=== PATIENT | male | born 1940 | race Caucasian/White ===

== ENCOUNTER → 2023-09-13 14:27 | Outpatient (REF) | payer OTHER, SELFPAY ==
[2023-09-13 15:56] LABS: % Basophils 1.4 % (0-2); % Eosinophils 1.8 % (0-6); % Immature Granulocytes 0.4 % (0-0.5); % Lymphocytes 13.7 % (20.5-51.1); % Monocytes 8.3 % (1.7-9.3); % Neutrophils 74.4 % (42.2-75.2); Absolute Basophils 0.1 10^3/uL (0-0.2); Absolute Eosinophils 0.1 10^3/uL (0-0.7); Absolute Lymphocytes 0.7 10^3/uL (1.2-3.4); Absolute Monocytes 0.4 10^3/uL (0.1-0.6); Absolute Neutrophils 3.7 10^3/uL (1.4-6.5); Hematocrit 31.1 % (39.0-52.0); Mean Corp Hgb Conc. 32.2 g/dL (33.0-37.0); Mean Corpuscular Hgb 31.3 pg (27.0-31.0); Mean Corpuscular Volume 97.2 fL (80.0-94.0); Mean Platelet Volume 10.1 fL (7.4-10.4); Nucleated Red Blood Cells % 0 % (-); Platelet Count 189 10^3/uL (130-400); Red Cell Dist. Width 13.7 % (11.5-14.5)
[2023-09-13 16:22] LABS: ALT (SGPT) 21 U/L (0-50); AST (SGOT) 28 U/L (17-59); Albumin 4.1 g/dl (3.5-5.0); Alkaline Phosphatase 122 U/L (38-126); Blood Urea Nitrogen 97 mg/dl (9-20); Calcium 9.1 mg/dl (8.4-10.2); Carbon Dioxide 18 mmol/L (22-30); Chloride 108 mmol/L (98-107); Glucose 84 mg/dl (70-99); Iron 70 ug/dl (49-181); Phosphorus 6.8 mg/dl (2.5-4.5); Potassium 4.8 mmol/L (3.5-5.1); Sodium 140 mmol/L (135-145); Total Bilirubin 0.4 mg/dl (0.2-1.3); Total Protein 6.7 g/dl (6.3-8.2); eGFR 10.03
[2023-09-13 17:21] LABS: Percent Saturation 30 % (20-50); Total Iron Binding Capacity 231 ug/dl (261-462)
[2023-09-13 21:31] LABS: Vitamin D, 25-OH*** 14.6 ng/mL (30-80)
[2023-09-15 11:05] LABS: Intact PTH 495.1 pg/ml (13.6-85.8)
== END ==
LOC: REG 14:27
PROVIDERS: ATTENDING PHYSICIAN Student in an Organized Health Care Education/Training Program
DX: N18.5 Chronic kidney disease, stage 5 (principal)
CPT/HCPCS: 36415; 80053; 82306; 83540; 83550; 83970; 84100; 85025

== ENCOUNTER → 2023-11-16 10:18 | Outpatient (REF) | payer OTHER, SELFPAY ==
[2023-11-16 11:14] LABS: % Eosinophils 5.4 % (0-6); % Immature Granulocytes 0.3 % (0-0.5); % Lymphocytes 24.5 % (20.5-51.1); % Neutrophils 53.8 % (42.2-75.2); Absolute Eosinophils 0.2 10^3/uL (0-0.7); Absolute Lymphocytes 0.8 10^3/uL (1.2-3.4); Absolute Monocytes 0.5 10^3/uL (0.1-0.6); Absolute Neutrophils 1.7 10^3/uL (1.4-6.5); Hematocrit 27.3 % (39.0-52.0); Mean Corpuscular Hgb 31.5 pg (27.0-31.0); Mean Corpuscular Volume 95.5 fL (80.0-94.0); Mean Platelet Volume 10.3 fL (7.4-10.4); Nucleated Red Blood Cells % 0 % (-); Platelet Count 145 10^3/uL (130-400); Red Blood Cell Count 2.86 10^6/uL (4.70-6.10); Red Cell Dist. Width 13.2 % (11.5-14.5); White Blood Cell Count 3.1 10^3/uL (4.8-10.8)
[2023-11-16 11:32] LABS: NT-proBNP 4350 pg/ml
[2023-11-16 11:46] LABS: Free T4 1.08 ng/dl (0.78-2.19); Vitamin D, 25-OH*** 19.8 ng/mL (30-80)
[2023-11-16 12:00] LABS: TSH 1.18 uIU/ml (0.47-4.68)
[2023-11-16 12:20] LABS: Vitamin B12 > 1000 pg/ml (239-931)
[2023-11-16 12:55] LABS: ALT (SGPT) 18 U/L (0-50); AST (SGOT) 22 U/L (17-59); Albumin 3.4 g/dl (3.5-5.0); Alkaline Phosphatase 113 U/L (38-126); Blood Urea Nitrogen 77 mg/dl (9-20); Calcium 8.4 mg/dl (8.4-10.2); Carbon Dioxide 21 mmol/L (22-30); Chloride 111 mmol/L (98-107); Glucose 82 mg/dl (70-99); HDL Cholesterol 74 mg/dl; Iron 59 ug/dl (49-181); LDL Cholesterol, Calculated 31 mg/dl; Potassium 5.2 mmol/L (3.5-5.1); Sodium 141 mmol/L (135-145); Total Bilirubin 0.3 mg/dl (0.2-1.3); Total Cholesterol 115 mg/dl (50-199); Total Protein 5.8 g/dl (6.3-8.2); Triglyceride 51 mg/dl (10-149); Very Low Density Lipoprotein 10 mg/dl (0-30); eGFR 13.65
== END ==
LOC: OLABN 10:18
PROVIDERS: ATTENDING PHYSICIAN Student in an Organized Health Care Education/Training Program
DX: E55.9 Vitamin D deficiency, unspecified (principal); I12.0 Hypertensive chronic kidney disease with stage 5 chronic kidney disease or end stage renal disease; I50.20 Unspecified systolic (congestive) heart failure; E78.5 Hyperlipidemia, unspecified
CPT/HCPCS: 36415; 80053; 80061; 82306; 82607; 82728; 83540; 83735; 83880; 84439; 84443; 85025

== ENCOUNTER 2023-11-16 15:52 | Emergency (ER) | payer OTHER, SELFPAY ==
[2023-11-16 15:54] VITALS: BP 181/77
[2023-11-16 15:57] VITALS: BP 183/74
[2023-11-16 16:00] VITALS: BP 181/77
[2023-11-16 16:11] LABS: % Basophils 1.2 % (0-2); % Eosinophils 5.8 % (0-6); % Immature Granulocytes 0.3 % (0-0.5); % Lymphocytes 21.9 % (20.5-51.1); % Neutrophils 53.8 % (42.2-75.2); Absolute Eosinophils 0.2 10^3/uL (0-0.7); Absolute Lymphocytes 0.7 10^3/uL (1.2-3.4); Absolute Monocytes 0.6 10^3/uL (0.1-0.6); Absolute Neutrophils 1.8 10^3/uL (1.4-6.5); Hematocrit 29.2 % (39.0-52.0); Hemoglobin 9.7 g/dL (13.0-18.0); Mean Corp Hgb Conc. 33.2 g/dL (33.0-37.0); Mean Corpuscular Hgb 31.3 pg (27.0-31.0); Mean Corpuscular Volume 94.2 fL (80.0-94.0); Mean Platelet Volume 9.8 fL (7.4-10.4); Nucleated Red Blood Cells % 0 % (-); Platelet Count 143 10^3/uL (130-400); Red Cell Dist. Width 13.3 % (11.5-14.5); White Blood Cell Count 3.3 10^3/uL (4.8-10.8)
--- NOTE | 2023-11-16 16:26 | ED.GENMED ---
History of Present Illness
<MARY Kauffman - Last Filed: 11/18/23 07:15>
General
Chief Complaint: Abnormal Lab Value
Source: patient
Exam Limitations: none
Time Seen by Provider: 11/16/23 16:03
Nursing documentation reviewed up to this point in time: agreed with
Travel History
Have you had any contact with someone who has COVID-19?: No
Do you have any symptoms of coronavirus? Fever > 100 degrees, chills, cough, shortness of breath, sore throat, loss of taste or smell, muscle aches, or headache?: No
History of Present Illness
History of Present Illness:
83-year-old male that was sent by [facility] for elevated BUN and creatinine. Patient reports he is newer to [facility] and recently started seeing cap inspector Dr. Tinajero recently. Does have a history of underlying chronic
kidney disease. He is on dialysis. He does make urine. He has no complaints.
Patient has a history of chronic kidney disease stage Vb. He has been followed by . In addition he has a history of heart failure COPD hyperkalemia essential hypertension, anemia of chronic disease
Review of Systems
<MARY Kauffman - Last Filed: 11/18/23 07:15>
Review of Systems
Allergies reviewed?: Yes
All Other Systems: ROS reviewed and negative except as documented in HPI and ROS
Constitutional: Reports no symptoms; Denies fever, fatigue or chills
Respiratory: Reports no symptoms
Cardiac: Reports no symptoms
ABD/GI: Reports no symptoms
: Reports no symptoms; Denies dysuria, frequency or difficulty voiding
Musculoskeletal: Reports no symptoms; Denies back pain
Skin: Reports no symptoms
Neurological: Reports no symptoms
Psychiatric: Reports no symptoms
Phy Exam
<MARY Kauffman - Last Filed: 11/18/23 07:15>
General Physical Exam
General Presentation: no apparent distress
General age: appears stated age
General Skin: warm and dry
General Habitus: elderly
General Mental: alert
General Hydration: appears well hydrated
Cardiovascular Exam
Cardiovascular Exam: regular rate/rhythm and normal peripheral pulses
Pulmonary Exam
Pulmonary Exam: lungs clear and no respiratory distress
Neurological Exam
Neurological Exam: alert and oriented x3
Musculoskeletal Exam
Musculoskeletal Exam: full ROM
Skin Exam
Skin Exam: normal color and warm/dry
Psychiatric Exam
Psychiatric Exam: normal mood/affect
Course
<MARY Kauffman - Last Filed: 11/18/23 07:15>
Orders/Labs/Results
Orders:
Orders
11/16/23 16:04
CBC/With Diff [Complete Blood Count/With Diff] Urgent
CMP [Comprehensive Metabolic Panel] Urgent
11/16/23 17:22
Bladder Scan- Treatment ONCE
11/16/23 18:07
UA Reflex to Culture [Urinalysis Reflex To Culture] Urgent
Date Specimen was Collected: 11/16/23
Time Specimen was Collected: 18:04
Urine Microscopic Reflex Cult Urgent
Abnormal Lab Results
11/16/23 11/16/23
16:04 18:07
WBC 3.3 L 10^3/uL
(4.8-10.8)
RBC 3.10 L 10^6/uL
(4.70-6.10)
Hgb 9.7 L g/dL
(13.0-18.0)
Hct 29.2 L %
(39.0-52.0)
MCV 94.2 H fL
(80.0-94.0)
MCH 31.3 H pg
(27.0-31.0)
Absolute Lymphs (auto) 0.7 L 10^3/uL
(1.2-3.4)
Monocytes % 17.0 H %
(1.7-9.3)
BUN 85 H mg/dl
(9-20)
Creatinine 4.1 H* mg/dL
(0.7-1.3)
Glucose 100 H mg/dl
(70-99)
Alkaline Phosphatase 130 H U/L
(38-126)
Urine Bacteria (Reflex) Few A
(Negative)
Urine Albumin (Reflex) 1+ A
(Neg - Trace)
11/16/23 16:04
11/16/23 16:04
Vital Signs
Initial and Last Documented VS:
Initial Vital Signs
Temp Pulse Resp BP Pulse Ox
97.8 F 71 22 181/77 99
11/16/23 15:54 11/16/23 15:54 11/16/23 15:54 11/16/23 15:54 11/16/23 15:54
Last Documented Vital Signs
Temp Pulse Resp BP Pulse Ox
97.8 F 74 20 168/67 100
11/16/23 15:54 11/16/23 18:45 11/16/23 18:45 11/16/23 17:00 11/16/23 17:00
<Cabrera Solomon, DO - Last Filed: 11/16/23 19:24>
Orders/Labs/Results
Orders:
Orders
11/16/23 16:04
CBC/With Diff [Complete Blood Count/With Diff] Urgent
CMP [Comprehensive Metabolic Panel] Urgent
11/16/23 17:22
Bladder Scan- Treatment ONCE
11/16/23 18:07
UA Reflex to Culture [Urinalysis Reflex To Culture] Urgent
Date Specimen was Collected: 11/16/23
Time Specimen was Collected: 18:04
Urine Microscopic Reflex Cult Urgent
Abnormal Lab Results
11/16/23 11/16/23
16:04 18:07
WBC 3.3 L 10^3/uL
(4.8-10.8)
RBC 3.10 L 10^6/uL
(4.70-6.10)
Hgb 9.7 L g/dL
(13.0-18.0)
Hct 29.2 L %
(39.0-52.0)
MCV 94.2 H fL
(80.0-94.0)
MCH 31.3 H pg
(27.0-31.0)
Absolute Lymphs (auto) 0.7 L 10^3/uL
(1.2-3.4)
Monocytes % 17.0 H %
(1.7-9.3)
BUN 85 H mg/dl
(9-20)
Creatinine 4.1 H* mg/dL
(0.7-1.3)
Glucose 100 H mg/dl
(70-99)
Alkaline Phosphatase 130 H U/L
(38-126)
Urine Bacteria (Reflex) Few A
(Negative)
Urine Albumin (Reflex) 1+ A
(Neg - Trace)
11/16/23 16:04
11/16/23 16:04
Vital Signs
Initial and Last Documented VS:
Initial Vital Signs
Temp Pulse Resp BP Pulse Ox
97.8 F 71 22 181/77 99
11/16/23 15:54 11/16/23 15:54 11/16/23 15:54 11/16/23 15:54 11/16/23 15:54
Last Documented Vital Signs
Temp Pulse Resp BP Pulse Ox
97.8 F 74 20 168/67 100
11/16/23 15:54 11/16/23 18:45 11/16/23 18:45 11/16/23 17:00 11/16/23 17:00
<MARY Kauffman - Last Filed: 11/18/23 07:15>
MDM/Problems Addressed
MDM/Problems Addressed:
Patient is an 83[facility] with chronic kidney disease stage V. He has seen Dr. Tinajero once in the office. His creatinine in September 2023 was 5.3 today is 4.1. He has a normal potassium and has no complaints. Case d/c w/ DR
Vu of nephrology who reviewed patient's prior labs and as documented labs are better. Will check urine/bladder scan .
Patient retaining a small amount of urine around 320 mL. This was reviewed by urology would not recommend Rosenberg catheter at that volume.
Will wait for urinalysis then plan for discharge back to [place]
<MARY Kauffman - Last Filed: 11/18/23 07:15>
*Pulse Oximetry
Patient hypoxic: no
*Critical Care Note
Total Time (30-74mins, 75-104mins- exclusive of procedures): Not Applicable
ED Attending Note
<MARY Kauffman - Last Filed: 11/18/23 07:15>
-
Portions of this chart may have been created with voice recognition software.� Occasional wrong word or��sound alike� substitutions may have occurred due to the inherent limitations of voice recognition software.
<Cabrera Solomon DO - Last Filed: 11/16/23 19:24>
ED Attending Note
Patient seen and examined by attending physician: Yes
I performed the substantive portion of visit, reviewed & personally made and approve the management plan that is documented in note by myself or SARIAH.: Yes
ED Attending Note:
I have seen and evaluated the patient with a [id number] encounter. I have spoken to the advance practicer provider and involved in the medical history, the physical exam, medical decision making.
Evaluation and management service: agree unless noted differently below.
Results interpretation: agree unless noted differently below.
Focused HPI: 83-year-old male presents for abnormal lab value. Patient was sent in when he was found to have an elevated creatinine
Physical exam: Lying in bed comfortably. No acute distress
Medical Decision Making: His elevated creatinine appears to be at baseline. He had mild urinary retention but urinated showing no evidence of infection.
Discharge Plan
Departure
Patient Disposition: Home (Routine Discharge)
Date of Disposition: 11/16/23
Time of Disposition: 19:24
Patient with high blood pressure during this ER visit?: Yes
Condition: Fair
Covid-19: Not Applicable
Discharge Problem:
Chronic kidney disease
Prescriptions:
No Action
acetaminophen 325 mg Tablet
650 mg PO Q4H PRN (Reason: mild pain/fever>100.4)
cyanocobalamin (vitamin B-12) [Vitamin B-12] 1,000 mcg Tablet
1,000 mcg PO DAILY
clopidogrel 75 mg Tablet
75 mg PO DAILY
magnesium hydroxide [Milk of Magnesia] 400 mg/5 mL Suspension
30 ml PO HS PRN (Reason: constipation)
tamsulosin 0.4 mg Capsule
0.4 mg PO QPM
sodium bicarbonate 650 mg Tablet
1,300 mg PO TID@0830,1330,1830
bisacodyl [Dulcolax (bisacodyl)] 10 mg Suppository
10 mg MA DAILY PRN (Reason: if mom/lactulose is ineffective)
simvastatin 20 mg Tablet
20 mg PO QPM
metoprolol succinate 25 mg tablet extended release 24 hr
12.5 mg PO DAILY
ferrous gluconate 324 mg (38 mg iron) Tablet
324 mg PO DAILY
sevelamer carbonate 800 mg tablet
800 mg PO TID@0830,1330,1830
Lokelma 10 gram powder in packet
10 g PO Q48H
Referrals:
Bin Marcos DO [Family Provider] -
Shannon Tinajero MD [Active] -
Activity Restrictions/Additional Instructions:
Patient must be evaluated by nephrology in the next several days.
Interventions
Interventions:
*Risk Screen - Suicide Last Done: 11/16/23 15:54
*General Assessment Last Done: 11/16/23 15:54
*Neglect/Abuse Screening Last Done: 11/16/23 15:54
*Nursing Disposition Last Done: 11/16/23 20:07
Discharge Date and Time
Discharge Date/Time: 11/16/23 20:07
Print Language: TURKISH
[2023-11-16 16:37] LABS: ALT (SGPT) 20 U/L (0-50); AST (SGOT) 26 U/L (17-59); Alkaline Phosphatase 130 U/L (38-126); Blood Urea Nitrogen 85 mg/dl (9-20); Calcium 8.6 mg/dl (8.4-10.2); Carbon Dioxide 24 mmol/L (22-30); Chloride 106 mmol/L (98-107); Glucose 100 mg/dl (70-99); Potassium 4.7 mmol/L (3.5-5.1); Sodium 139 mmol/L (135-145); Total Bilirubin 0.5 mg/dl (0.2-1.3); Total Protein 6.6 g/dl (6.3-8.2); eGFR 13.65
[2023-11-16 17:00] VITALS: BP 168/67
[2023-11-16 19:13] LABS: Urine Albumin 1+ (Neg - Trace); Urine Bilirubin Negative (Negative); Urine Character Clear (Clear); Urine Color Yellow; Urine Glucose Negative (Negative); Urine Ketone Negative (Negative); Urine Leukocyte Negative (Negative); Urine Nitrite Negative (Negative); Urine Occult Blood Negative (Negative); Urine Urobilinogen Negative (Neg - 1+)
[2023-11-16 19:26] LABS: Urine Bacteria Few (Negative); Urine Red Blood Cell 0-2 /HPF (0-2); Urine White Cell 0-2 /HPF (0-5)
== END 2023-11-16 20:07 | disposition home or self-care (01) ==
LOC: EMR 15:52
PROVIDERS: Nurse Practitioner; EMERGENCY PHYSICIAN Student in an Organized Health Care Education/Training Program; FAMILY PHYSICIAN Student in an Organized Health Care Education/Training Program
DX: I13.2 Hypertensive heart and chronic kidney disease with heart failure and with stage 5 chronic kidney disease, or end stage renal disease (principal); N18.5 Chronic kidney disease, stage 5; I50.9 Heart failure, unspecified; J44.9 Chronic obstructive pulmonary disease, unspecified
CPT/HCPCS: 99283; 51798; 80053; 81003; 81015; 85025

== ENCOUNTER → 2023-12-15 14:16 | Outpatient (REF) | payer OTHER, SELFPAY | LOC: DHVS 14:16 | PROVIDERS: ATTENDING PHYSICIAN Surgery Vascular Surgery; FAMILY PHYSICIAN Student in an Organized Health Care Education/Training Program | DX: N18.4 Chronic kidney disease, stage 4 (severe) (principal) | CPT/HCPCS: 93985 ==

== ENCOUNTER 2023-12-20 06:33 | Day surgery (SDC) | payer OTHER, SELFPAY ==
[2023-12-14 11:52] VITALS: BMI 23.1
[2023-12-20] VITALS (15 sets, daily range): BP systolic 119–146; BP diastolic 48–65
--- NOTE | 2023-12-20 07:04 | W.SUR.PREOP ---
Pre-Operative Surgical Note
-
I have examined this patient prior to the performance of the scheduled procedure.
The patient's condition is unchanged from the time of the current History and
Physical and the patient is able to undergo the scheduled procedure.
[2023-12-20 07:07] LABS: Hematocrit 28.5 % (39.0-52.0); Hemoglobin 9.5 g/dL (13.0-18.0); Mean Corp Hgb Conc. 33.3 g/dL (33.0-37.0); Mean Corpuscular Hgb 32.1 pg (27.0-31.0); Mean Corpuscular Volume 96.3 fL (80.0-94.0); Mean Platelet Volume 10.1 fL (7.4-10.4); Platelet Count 137 10^3/uL (130-400); Red Blood Cell Count 2.96 10^6/uL (4.70-6.10); Red Cell Dist. Width 13.8 % (11.5-14.5); White Blood Cell Count 4.9 10^3/uL (4.8-10.8)
[2023-12-20] MEDS: BACTROBAN 2% OINTMENT 1 APPLIC NASAL (07:12)
[2023-12-20] MEDS: PERIDEX 0.12% ORAL RINSE 15 ML PO (07:13)
[2023-12-20] MEDS: NSS 40 IV (07:13)
[2023-12-20 07:32] LABS: Blood Urea Nitrogen 99 mg/dl (9-20); Calcium 9.1 mg/dl (8.4-10.2); Carbon Dioxide 16 mmol/L (22-30); Chloride 117 mmol/L (98-107); Estimated Creatinine Clearance 10 ml/min; Glucose 92 mg/dl (70-99); Potassium 6.2 mmol/L (3.5-5.1); Sodium 142 mmol/L (135-145); eGFR 11.02
--- NOTE | 2023-12-20 07:35 | PTCARENOTE ---
Critical labs K+ 6.2 and Cr 4[address] Bennett and Zulma FARRIS.
[2023-12-20 07:40] LABS: INR 1.19; PT 15.2 Sec (11.4-14.6)
[2023-12-20 07:41] LABS: APTT 38.4 Sec (23.4-35.0)
--- NOTE | 2023-12-20 07:56 | W.PN.UPDATE ---
Update Note
Progress Note Update
Patient seen at bedside this a.m. to assess for K: 6.2. Patient is here for AV fistula creation soon to be starting dialysis.
I spoke with Dr. Haskins. We ordered insulin, D50, Lokelma. Repeat K in 2 hours. Increase home Lokelma dose to daily. Patient updated, he is doing well, no EKG changes. Anesthesia and Dr. Wells aware.
[2023-12-20] MEDS: DEXTROSE 50% SYRINGE 25 GRAMS IV (07:58)
[2023-12-20] MEDS: LOKELMA 10 GRAM PO (07:58)
[2023-12-20] MEDS: NOVOLIN R 0.100000000000000006 UNITS IV (08:06)
--- NOTE | 2023-12-20 08:12 | PTCARENOTE ---
Lokelma , Insulin and Dextrose given as ordered.
[2023-12-20 08:23] LABS: Glucose - Point of Care 91 mg/dl (70-99)
[2023-12-20 09:01] LABS: Glucose - Point of Care 120 mg/dl (70-99)
--- NOTE | 2023-12-20 09:56 | W.SUR.POST ---
Surgical Immediate Post Op
Note
Pre Op Diagnosis: ESRD
Post Op Diagnosis: same
Procedure Performed: Left upper extremity AV fistula creation
Primary Surgeon: Russell
Assist: Nolberto HERNANDEZ
Anesthesia: LMA
Estimated Blood Loss: 5 cc
Fluids: See anesthesia flowsheet
Drains/Shunts: None
Specimens/Cultures: None
Doppler/Duplex/Angio (Y/N): Y
Complications: None
Operative Findings: Palpable thrill, palpable radial pulse
--- NOTE | 2023-12-20 09:58 | W.[place]-PDMP ---
[place]-PDMP
-
Checked the [place]- Prescription Drug Monitoring Program website, no red flags identified; safe to proceed with prescription.
--- NOTE | 2023-12-20 10:17 | OR.RPT ---
Operative Report
Operative Report
PROCEDURE DATE: 12/20/2023
Preoperative diagnosis: CKD stage V, approaching hemodialysis.
Postoperative diagnosis: Same
Procedure: Left upper extremity brachiobasilic arteriovenous fistula creation with single stage basilic vein transposition.
Surgeon: Russell
Human Resources Director: Nolberto, required for all aspects of procedure including assistance with traction/countertraction, following of suture line, assistance with closure.
Complications: None
Anesthesia: General
Indications for procedure:
Advanced chronic kidney disease, approaching hemodialysis needs. Referred for access creation. Risk/benefit/alternatives also discussed. Patient understood all wish to proceed.
Description of procedure:
Patient was identified brought to the operating room placed on the table in supine position. After the induction of anesthesia, I used a ultrasound probe in the operating room to carefully mapped the left upper extremity veins. The basilic vein in
the upper arm actually appeared suitable at this time. (Even though the ultrasound vein mapping preoperatively had demonstrated small sizes of all veins in the upper arm and forearm in this extremity). Therefore, I felt it was worthwhile to
explore the basilic vein for possible brachiobasilic fistula creation. After the adequate administration of anesthesia and perioperative antibiotics he was prepped and draped in the standard surgical fashion. A standard preoperative timeout was
undertaken and everybody was in agreement the plan. A longitudinal incision was made in the medial distal upper arm that was carried through the skin subcutaneous tissue with electrocautery. The basilic vein was identified and carefully dissected
away from surrounding structures and great care to avoid any injury to structures. It appeared to be a very suitable vein. I therefore then continued my incisions extending proximally up towards the axilla (to the proximal upper arm where I had
marked the confluence of the basilic vein to the deep venous system), and distally just to the level of the proximal forearm. The basilic vein was carefully dissected away from surrounding structures take great care to avoid any injury to
structures, namely the median antebrachial cutaneous nerve which was carefully preserved from harm's way. Any branches of the basilic vein were ligated between silk ties and then divided. As such I was able to mobilize the entirety of the basilic
vein out of its bed. Once I fully mobilized sufficient length of vein I then ligated the vein distally with a silk tie and a clip and then transected it. I then untethered it from the nerve. I distended under heparinized saline. It distended
very well. I marked the anterior surface under distention to avoid any kinking or twisting when I tunneled it.
Next I deepened my dissection in the distal aspect of my incision through the fascial layer, thereby identifying the brachial artery and carefully dissected away from surrounding structures and great care to avoid any injury to structures. Note, I
did identify on ultrasound that there appeared to be a higher radial or other branch takeoff. However, the artery I was dissecting was the main brachial/ulnar artery at this point. I passed Vesseloops around it proximally and distally. Next I
made a small counterincision overlying the biceps and used an aortic clamp to tunnel the mobilized basilic vein to the arterial exposure site (tunneled in a rainbow fashion overlying the biceps). The tunneling was performed with the vein under
distention to avoid any kinking or twisting.
Next I gave the patient 3000 units of intravenous heparin. I then tightened my Vesseloops (double looped) proximally and distally on the brachial artery. Next I made an arteriotomy with 11 blade and extended using a Farfan scissor. I then
spatulated the vein and sewed an end-to-side anastomosis using a running 6-0 Prolene suture. I then completed and tied down my suture line. Next I released my Vesseloops on the artery and the bulldog clamp tied placed on the vein. There was an
excellent thrill in the fistula. Hemostasis was noted along the suture line. I confirmed good distal flow with an easily palpable radial pulse at the wrist. At this point I was very satisfied. I therefore irrigated all my incision sites.
Hemostasis was fully achieved and confirmed. We then closed useing deep dermal 3-0 Vicryl running suture. Finally 4-0 Monocryl subcuticular stitch was run. The small counterincision was closed with 4-0 Monocryl subcuticular stitch as well.
Dermabond was applied to the incision sites. Patient tolerated the procedure well.
[2023-12-20 10:24] LABS: Glucose - Point of Care 78 mg/dl (70-99)
[2023-12-20] MEDS: TYLENOL 650 MG PO (11:18)
[2023-12-20 11:43] LABS: Blood Urea Nitrogen 101 mg/dl (9-20); Calcium 9.4 mg/dl (8.4-10.2); Carbon Dioxide 12 mmol/L (22-30); Chloride 121 mmol/L (98-107); Estimated Creatinine Clearance 11 ml/min; Glucose 66 mg/dl (70-99); Potassium 5.7 mmol/L (3.5-5.1); Sodium 143 mmol/L (135-145); eGFR 12.54
[2023-12-20 12:01] LABS: Glucose - Point of Care 116 mg/dl (70-99)
[2023-12-20] MEDS: SODIUM BICARBONATE 50 MEQ IV (12:37)
--- NOTE | 2023-12-20 12:37 | W.PN.UPDATE ---
Update Note
Progress Note Update
Repeat potassium 5.7, discussed with nephrology. 1 amp of bicarb given. Patient educated on new prescription of Lokelma DAILY. Will follow-up with nephrology as scheduled on 01/09. [facility] to [facility]
== END 2023-12-20 13:57 | disposition home or self-care (01) ==
LOC: CATH 06:33
PROVIDERS: Nurse Practitioner Acute Care; ATTENDING PHYSICIAN Surgery Vascular Surgery
DX: N18.6 End stage renal disease (principal); Z99.2 Dependence on renal dialysis; F17.210 Nicotine dependence, cigarettes, uncomplicated; Z79.02 Long term (current) use of antithrombotics/antiplatelets
CPT/HCPCS: 36819; 80048; 82962; 85027; 85610; 85730; 86850; 86900; 86901

== ENCOUNTER → 2023-12-27 10:03 | Outpatient (REF) | payer MEDICARE, SELFPAY | LOC: RCS 10:03 | PROVIDERS: ATTENDING PHYSICIAN Internal Medicine Cardiovascular Disease; FAMILY PHYSICIAN Student in an Organized Health Care Education/Training Program | DX: I50.20 Unspecified systolic (congestive) heart failure (principal) | CPT/HCPCS: 93306 ==

== ENCOUNTER → 2024-03-03 10:38 | Outpatient (REF) | payer MEDICARE, SELFPAY | LOC: RAD 10:38 | PROVIDERS: ATTENDING PHYSICIAN Registered Nurse | DX: N18.4 Chronic kidney disease, stage 4 (severe) (principal); I77.0 Arteriovenous fistula, acquired | CPT/HCPCS: 93990 ==

== ENCOUNTER 2024-03-08 10:59 | Day surgery (SDC) | payer MEDICARE, SELFPAY ==
[2024-03-08] VITALS (10 sets, daily range): BP systolic 112–142; BP diastolic 53–74; BMI 22.1
[2024-03-08 11:36] LABS: Hematocrit 31.6 % (39.0-52.0); Hemoglobin 10.6 g/dL (13.0-18.0); Mean Corp Hgb Conc. 33.5 g/dL (33.0-37.0); Mean Corpuscular Hgb 32.1 pg (27.0-31.0); Mean Corpuscular Volume 95.8 fL (80.0-94.0); Mean Platelet Volume 9.9 fL (7.4-10.4); Platelet Count 186 10^3/uL (130-400); Red Cell Dist. Width 13.2 % (11.5-14.5); White Blood Cell Count 4.6 10^3/uL (4.8-10.8)
[2024-03-08 11:56] LABS: INR 1.01; PT 13.3 Sec (11.4-14.6)
[2024-03-08 12:20] LABS: Blood Urea Nitrogen 104 mg/dl (9-20); Calcium 9.3 mg/dl (8.4-10.2); Carbon Dioxide 15 mmol/L (22-30); Chloride 108 mmol/L (98-107); Estimated Creatinine Clearance 11 ml/min; Glucose 95 mg/dl (70-99); Potassium 5.6 mmol/L (3.5-5.1); Sodium 141 mmol/L (135-145); eGFR 12.54
--- NOTE | 2024-03-08 13:55 | W.SUR.POST ---
Surgical Immediate Post Op
Note
Pre Op Diagnosis: ESRD
Post Op Diagnosis: ESRD
Procedure Performed: Left upper extremity fistulogram, angioplasty and stent of outflow vein stenosis
Primary Surgeon: Russell
Anesthesia: Local and sedation
Estimated Blood Loss: 2 cc
Fluids: See anesthesia flowsheet
Drains/Shunts: None
Specimens/Cultures: None
Doppler/Duplex/Angio (Y/N): Y
Complications: none
Operative Findings:+thrill
--- NOTE | 2024-03-08 16:04 | OR.RPT ---
Operative Report
Operative Report
PROCEDURE DATE: 03/08/2024
Preoperative diagnosis:
1. End-stage renal disease, approaching hemodialysis.
2. Status post left upper extremity AV fistula creation, failing fistula.
Postoperative diagnosis: Same
Procedure:
1. Duplex assisted cannulation of left upper extremity arteriovenous fistula basilic vein outflow and a central facing direction.
2. Left upper extremity fistulogram and central venogram.
3. Balloon angioplasty of left upper extremity outflow vein severe stenosis with 4 mm and 5 mm standard angioplasty balloons.
4. Balloon angioplasty of left upper extremity outflow vein severe stenosis with 6 mm cutting angioplasty balloon.
5. Placement of balloon mounted stent with [place] VBX 7 mm x 39 mm covered stent severe outflow vein recalcitrant stenosis.
Surgeon: Russell
Adjunct Professor Of Law: None
Complications: None
Anesthesia: Local, sedation
Fluoroscopy:
5.0 min
10 mGy
2.08 Gy.cm2
Indications for procedure:
Concern for failing left upper extremity AV fistula. Ultrasound had indicated thrombosis of the fistula. However on exam there was pulsatility and flow. Therefore patient was brought for fistulogram. Risk/benefit/alternatives were all fully
discussed. Patient understood all wished proceed
Description of procedure:
Patient was identified, brought to the operating room. Placed on the table in the supine position. After the adequate administration of anesthesia, the patient was prepped and draped in the standard surgical fashion. A standard preoperative
timeout was undertaken and everybody was in agreement with the plan.
The left upper extremity basilic vein outflow of the fistula was punctured and a central facing direction in the distal upper arm near the antecubital fossa. This was done with a micropuncture kit under direct duplex ultrasound guidance. Through
the micropuncture sheath a fistulogram was obtained. The outflow portion of the basilic vein distal anastomosis was patent. There was an area of what appeared to be vasospasm near the sheath. Did not appear to be a true stenosis. However where
the basilic vein joins the deep vein there was a severe string-like stenosis extending over about 3 cm. I could not even pass my 0.035 inch wire through there. Therefore I used a floppy angled hydrophilic wire (Glidewire) and was able to pass it
through into the central venous system. I then was able to extend my micropuncture catheter through that segment. I now could switch back to a 0.035 inch starter wire, and then exchanged for a 5 [place] sheath. Now I exchanged my starter wire for
a Storq wire. I performed balloon angioplasty (after the patient given 3000's of intravenous heparin) of the severe stenosis area with a 4 mm angioplasty balloon. However, I could not get the waist to resolve. I therefore then exchanged for a 5
mm angioplasty balloon. Again I could not get the waist resolved. Completion angiogram repeatedly demonstrated residual stenosis. Therefore I exchanged for a 6 [place] sheath over a 0.035 inch wire and then exchanged back for a V18 wire. I then
used a 6 mm x 2 cm cutting balloon in the region where the waist would not resolve. As I inflated this I was noted that the waist popped and was able to completely resolved. Completion angiogram now demonstrated resolution of the severe
string-like stenosis but there was still residual stenosis and irregularity in the vein here. At this point I did not feel that this would be ideal, and given the recalcitrant nature of the stenosis, I felt the stent was warranted. Given the size
discrepancy of the basilic vein into the outflow deeper vein, I felt a balloon mounted stent would be ideal, and I felt a VBX stent although covered would be ideal because it could be ballooned to variable sizes to account for the differences in the
sizes of the veins. Therefore I positioned a 7 mm 39 mm Chetopa VBX stent at the area of severe stenosis. This was ballooned into place. As noted the balloon expanded more fully in the outflow vein portion/deep vein portion and lesser so in the
distal aspect of the basilic vein. Regardless the stent appeared to oppose the wall and both of these segments of vein. Completion angiogram confirmed that. Completion angiogram demonstrated no residual stenosis and excellent flow through here.
At this point is very satisfied. Central venography demonstrated no evidence of residual stenosis. Reflux fistulogram demonstrated that the area of vasospasm just near the sheath entry site had resolved. At this point is very satisfied. Of note
reflux fistulogram had already demonstrated widely patent arterial anastomosis. Therefore, at this point the wires and catheters were withdrawn. A 4 Monocryl stitch was placed around the sheath entry site and was tied down as the sheath was
withdrawn. Manual pressure was also applied. The patient tolerated the procedure well and had a good thrill in the fistula upon completion.
== END 2024-03-08 15:41 | disposition home or self-care (01) ==
LOC: CATH 10:59
PROVIDERS: ATTENDING PHYSICIAN Surgery Vascular Surgery; FAMILY PHYSICIAN Internal Medicine
DX: I13.2 Hypertensive heart and chronic kidney disease with heart failure and with stage 5 chronic kidney disease, or end stage renal disease (principal); N18.6 End stage renal disease; I50.9 Heart failure, unspecified; Z99.2 Dependence on renal dialysis; J44.9 Chronic obstructive pulmonary disease, unspecified; Z87.891 Personal history of nicotine dependence; Z79.02 Long term (current) use of antithrombotics/antiplatelets
CPT/HCPCS: 36903; C1769; C1725; C1894; 80048; 85027; 85610; 85730; 86850; 86900; 86901; 93005; C1874; C1876; Q9967

== ENCOUNTER → 2024-03-27 10:11 | Outpatient (REF) | payer MEDICARE, SELFPAY | LOC: RAD 10:11 | PROVIDERS: ATTENDING PHYSICIAN Physician Assistant; FAMILY PHYSICIAN Internal Medicine | DX: I77.0 Arteriovenous fistula, acquired (principal) | CPT/HCPCS: 93990 ==

== ENCOUNTER 2024-05-08 07:41 | Day surgery (SDC) | payer MEDICARE, MEDICAID, SELFPAY ==
[2024-05-08] VITALS (9 sets, daily range): BP systolic 16–149; BP diastolic 56–126; BMI 22.1
--- NOTE | 2024-05-08 07:33 | HP.FOC2 ---
Focused History & Physical
Chief Complaint
HPI:
Chief Complaint: End-stage renal disease
HPI / Indication for Planned Procedure: 84-year-old male here for planned fistulagram with Dr. Wells. Patient is in baseline health. No new medications since prior visit. No change in health history since prior visit. Patient agreeable to today's
planned procedure and wishes to proceed.
Relevant Past Medical History: Other (CHF, CKD, COPD, anemia, DJD, BPH, hypertension, CAD)
Relevant Social History: Tobacco Use
Relevant Family History: Positive for (CKD)
Relevant Past Surgical History: Positive for (Back surgery x 3, AV fistula creation)
Review of Systems
Review of Pertinent Systems: All Systems Negative
Medication
See Medication form for detailed medications: Yes
Medication List (including Herbals & OTC):
acetaminophen 325 mg tablet 650 mg PO Q6H PRN mild pain 11/16/23
bisacodyl 10 mg rectal suppository (Dulcolax (bisacodyl)) 10 mg HI DAILY PRN if mom is ineffective 11/16/23
clopidogrel 75 mg tablet 75 mg PO DAILY 11/16/23
cyanocobalamin (vitamin B-12) 1,000 mcg tablet (Vitamin B-12) 1,000 mcg PO DAILY 11/16/23
ferrous gluconate 324 mg (38 mg iron) tablet 324 mg PO DAILY 11/16/23
magnesium hydroxide 400 mg/5 mL oral suspension (Milk of Magnesia) 30 ml PO HS PRN constipation- no BM x 3 days 11/16/23
metoprolol succinate 25 mg tablet,extended release 24 hr 12.5 mg PO DAILY 11/16/23
sevelamer carbonate 800 mg tablet 800 mg PO AC 11/16/23
simvastatin 20 mg tablet 20 mg PO QPM 11/16/23
ascorbic acid (vitamin C) 500 mg tablet (Vitamin C) 500 mg PO DAILY 12/17/23
tamsulosin 0.4 mg capsule 0.4 mg PO DAILY 12/20/23
furosemide 20 mg tablet 20 mg PO DAILY 03/07/24
sodium zirconium cyclosilicate 10 gram oral powder packet (Lokelma) 10 g PO Q48H 03/07/24
sodium bicarbonate 325 mg tablet 325 mg PO TID 03/08/24
phenol 2 ea miscellaneous Q4H PRN sore throat 05/02/24
sodium chloride 0.65 % nasal spray aerosol (Saline Nasal) 2 spray intranasal Q8H PRN dry nares 05/02/24
Medications Reviewed: Yes
Allergies and Reactions
Patient has Allergies: Yes
Noted Allergies and Reactions:
Allergy/AdvReac Type Severity Reaction Status Date / Time
No Known Allergies Allergy Verified 03/08/24 12:38
Pertinent Physical Exam
All Other Systems: Negative
Head/Neck: Normal
Lungs: Normal
Heart: Normal
Abdomen: Normal
Extremities: Normal and Other (Palpable thrill to left upper extremity AVF, +2 radial pulse)
Neurological: Normal
Diagnosis / Assessment
End-stage renal disease
Plan / Procedure
84-year-old male here for planned fistulogram, central venogram, possible MANAGER FOOD/stent with Dr. Wells.
Anesthesia/Sedation to be done by Anesthesia Provider: Yes
[2024-05-08 08:45] LABS: Hematocrit 31.9 % (39.0-52.0); Hemoglobin 10.3 g/dL (13.0-18.0); Mean Corp Hgb Conc. 32.3 g/dL (33.0-37.0); Mean Corpuscular Hgb 32.6 pg (27.0-31.0); Mean Corpuscular Volume 100.9 fL (80.0-94.0); Mean Platelet Volume 9.4 fL (7.4-10.4); Platelet Count 191 10^3/uL (130-400); Red Blood Cell Count 3.16 10^6/uL (4.70-6.10); Red Cell Dist. Width 12.8 % (11.5-14.5); White Blood Cell Count 4.7 10^3/uL (4.8-10.8)
[2024-05-08 09:01] LABS: Blood Urea Nitrogen 98 mg/dl (9-20); Calcium 9.4 mg/dl (8.4-10.2); Carbon Dioxide 17 mmol/L (22-30); Chloride 110 mmol/L (98-107); Estimated Creatinine Clearance 10 ml/min; Glucose 91 mg/dl (70-99); Potassium 5.8 mmol/L (3.5-5.1); Sodium 143 mmol/L (135-145); eGFR 11.82
[2024-05-08 09:10] LABS: INR 1.09; PT 14.4 Sec (11.4-14.6)
[2024-05-08 09:11] LABS: APTT 44.9 Sec (23.4-35.0)
--- NOTE | 2024-05-08 10:51 | W.SUR.POST ---
Surgical Immediate Post Op
Note
Pre Op Diagnosis: End-stage renal disease
Post Op Diagnosis: Same
Procedure Performed: Left upper extremity fistulagram
Primary Surgeon: Russell
Anesthesia: Local and sedation
Estimated Blood Loss: 10 cc
Fluids: See anesthesia flowsheet
Drains/Shunts: None
Specimens/Cultures: None
Doppler/Duplex/Angio (Y/N): Y
Complications: None
Operative Findings: See operative note, fistula likely not salvageable
--- NOTE | 2024-05-08 11:26 | OR.RPT ---
Operative Report
Operative Report
PROCEDURE DATE: 05/08/2024
Preoperative diagnosis: Worsening chronic kidney disease, nearing hemodialysis. Nonmaturing left upper extremity arteriovenous fistula.
Postoperative diagnosis: Same
Procedure:
1. Duplex assisted left upper extremity basilic vein outflow fistula cannulation.
2. Left upper extremity fistulogram.
Surgeon: Russell
Paste Up Artist Apprentice: None
Complications: None
Anesthesia: Local, sedation
Fluoroscopy:
0.3 min
1 mGy
0.38 Gy.cm2
Indications for procedure:
Left upper extremity transposed basilic vein fistula. Had been intervened upon once already requiring [place] Balloon angioplasty and stent placement. Now continued to have exceedingly low flow volumes concerning for imminent thrombosis/occlusion.
Brought for fistulogram. Risk/benefits/alternatives all fully discussed. Patient understood all wished to proceed.
Description of procedure:
Patient was identified, brought to the operating room. Placed on the table in the supine position. After the adequate administration of anesthesia, the patient was prepped and draped in the standard surgical fashion. A standard preoperative
timeout was undertaken and everybody was in agreement with the plan.
Under duplex assisted guidance, I used a micropuncture kit to cannulate the basilic vein outflow and a central facing direction (based on the fact that there appeared to be significant venous stenosis on my ultrasound assessment in the operating
room prior to prepping and draping, and also consistent with prior ultrasound findings). Next, I exchanged for a micropuncture sheath and then a 0.035 inch wire. I then exchanged for a 5 [place]ic sheath. However, when I placed this sheath up it was
slightly difficult going in but then went in and there was significant bleeding around the sheath and then a hematoma forming. I therefore then quickly applied pressure to control the hematoma. There was still bleeding around the sheath and
therefore I felt that perhaps it had torn the vein. I used the ultrasound to confirm that the sheath was indeed in the vein and was not through and through. I did confirm that it was in the vein as was the wire. I therefore then exchanged for a 6
[place] sheath. However even this had bleeding around it. I therefore then exchanged for a 7 [place] sheath to try to tamponade the bleeding. Now I was able to control any bleeding around the sheath. However the thrill felt very weak at this
point. I therefore performed left upper extremity fistulogram. There appeared to be thrombus in the outflow vein. I do not know if there was a chronic component of the thrombus or whether this was all new or thrombus. In addition there appeared
to be thrombus in the more proximal outflow just proximal to the sheath (on the arterial side). The vein itself was also very small. And the stent tapered down and the vein and was very small as well. At this point I really felt that this vein
was not going to be a viable long-term vein or solution. It was just too small and sclerotic diffusely. I did not think that I could achieve even with successful thrombectomy a long-lasting access here. I felt therefore the safest thing was to
not proceed with any extensive procedure especially in this 84-year-old gentleman. Wires and catheters were withdrawn. 4-0 Monocryl pursestring stitch was placed around the sheath entry site and the sheath withdrawn while the stitch was tied down
and manual pressure also applied. Hemostasis was achieved.
The patient tolerated procedure well.
== END 2024-05-08 12:09 | disposition home or self-care (01) ==
LOC: CATH 07:41
PROVIDERS: ATTENDING PHYSICIAN Surgery Vascular Surgery; FAMILY PHYSICIAN Internal Medicine
DX: Z49.01 Encounter for fitting and adjustment of extracorporeal dialysis catheter (principal); I13.2 Hypertensive heart and chronic kidney disease with heart failure and with stage 5 chronic kidney disease, or end stage renal disease; N18.6 End stage renal disease; I25.10 Atherosclerotic heart disease of native coronary artery without angina pectoris; I50.9 Heart failure, unspecified; J44.9 Chronic obstructive pulmonary disease, unspecified; N40.0 Benign prostatic hyperplasia without lower urinary tract symptoms; Z95.5 Presence of coronary angioplasty implant and graft; Z79.02 Long term (current) use of antithrombotics/antiplatelets
CPT/HCPCS: 36901; 36902; 76937; 80048; 85027; 85610; 85730; 86850; 86900; 86901; Q9967

== ENCOUNTER 2024-05-17 09:05 | Emergency (ER) | payer MEDICARE, MEDICAID, SELFPAY ==
[2024-05-17] VITALS (7 sets, daily range): BP systolic 96–126; BP diastolic 52–65; BMI 22.1
--- NOTE | 2024-05-17 09:18 | ED.GENMED ---
History of Present Illness
<Svitlana Bennett PA-C - Last Filed: 05/17/24 13:51>
General
Chief Complaint: Fainting/Passed Out
Source: patient
Exam Limitations: none
Time Seen by Provider: 05/17/24 09:05
Nursing documentation reviewed up to this point in time: agreed with
History of Present Illness
History of Present Illness:
84-year-old male with history hypertension, CHF, stage IV CKD presents to the emergency department from facility via EMS after syncopal event this morning. Patient states that he had just finished breakfast when he went into the bathroom to wash
up. He then felt like he had have a bowel movement. As he was sitting on the toilet bearing down he began feeling nauseous and lightheaded. He had a few episodes of vomiting and then proceeded to pass out. Fortunately�a staff member from the
facility was in the bathroom at the time to witness this. Patient did not hit his head. Patient denies any preceding chest pain, dizziness, shortness of breath.
At this time�patient feels well and is asymptomatic. Patient pacifically denies any chest pain, shortness of breath, or abdominal pain. Patient has been producing urine and denies any urinary complaints.
Of note�patient states that he has been constipated for the past 5 days. Yesterday he was given milk of magnesia and then had a very large bowel movement this morning just prior to syncopal event.
Patient recently had an AV fistula placed by Dr. Wells. He is scheduled for follow-up appointment on 05/25/2024 to discuss initiating dialysis.
Review of Systems
<Svitlana Bennett PA-C - Last Filed: 05/17/24 13:51>
Review of Systems
Allergies reviewed?: Yes
All Other Systems: ROS reviewed and negative except as documented in HPI and ROS
Phy Exam
<Svitlana Bennett PA-C - Last Filed: 05/17/24 13:51>
Physical Exam
Physical Exam:
Vitals: Vital signs stable. Afebrile
General: Patient is in no apparent distress.
Skin: Warm and dry, no rashes or lesions
Head: Normocephalic, atraumatic
Eyes: Sclera nonicteric. EOMs intact. No nystagmus.
Throat: Protecting airway
Neck: Normal ROM, no cervical spine tenderness, no meningismus
Cardiac: Regular rate and rhythm, no murmurs.
Pulm: Normal respiratory effort, no wheezes, rales, rhonchi heard on exam.
Abdomen: Abdomen soft and nontender. No rebound tenderness or guarding.
Extremities: No evidence of cyanosis or edema. Palpable DP pulses.
Neuro: AAOx3. Grossly intact.
Psychiatric: Normal affect.
Course
<Svitlana Bennett PA-C - Last Filed: 05/17/24 13:51>
Orders/Labs/Results
Orders:
Orders
05/17/24 09:09
EKG [Electrocardiogram (*1)] Urgent
Reason for Study: Vertigo / Dizzy
05/17/24 09:10
EKG- Treatment ONCE
05/17/24 09:22
Complete Blood Count/With Diff Urgent
Comprehensive Metabolic Panel Urgent
05/17/24 09:30
0.9% Sodium Chloride 500 ml [Nss] 500 ml IV BOLUS
Abnormal Lab Results
05/17/24
09:22
RBC 3.11 L 10^6/uL
(4.70-6.10)
Hgb 10.3 L g/dL
(13.0-18.0)
Hct 31.5 L %
(39.0-52.0)
MCV 101.3 H fL
(80.0-94.0)
MCH 33.1 H pg
(27.0-31.0)
MCHC 32.7 L g/dL
(33.0-37.0)
Absolute Lymphs (auto) 1.1 L 10^3/uL
(1.2-3.4)
Lymphocytes % 18.8 L %
(20.5-51.1)
Potassium 5.2 H mmol/L
(3.5-5.1)
Chloride 108 H mmol/L
(98-107)
Carbon Dioxide 18 L mmol/L
(22-30)
BUN 85 H mg/dl
(9-20)
Creatinine 4.2 H* mg/dL
(0.7-1.3)
Glucose 138 H mg/dl
(70-99)
AST 16 L U/L
(17-59)
05/17/24 09:22
05/17/24 09:22
Vital Signs
Blood pressure: 110/52
Initial and Last Documented VS:
Initial Vital Signs
Pulse Resp
63 7
05/17/24 09:08 05/17/24 09:08
Last Documented Vital Signs
Temp Pulse Resp BP Pulse Ox
97.5 F 82 20 126/65 99
05/17/24 09:10 05/17/24 13:04 05/17/24 13:04 05/17/24 13:04 05/17/24 13:04
<Tierra Garrett MD - Last Filed: 05/17/24 11:16>
Orders/Labs/Results
Orders:
Orders
05/17/24 09:09
EKG [Electrocardiogram (*1)] Urgent
Reason for Study: Vertigo / Dizzy
05/17/24 09:10
EKG- Treatment ONCE
05/17/24 09:22
Complete Blood Count/With Diff Urgent
Comprehensive Metabolic Panel Urgent
05/17/24 09:30
0.9% Sodium Chloride 500 ml [Nss] 500 ml IV BOLUS
Abnormal Lab Results
05/17/24
09:22
RBC 3.11 L 10^6/uL
(4.70-6.10)
Hgb 10.3 L g/dL
(13.0-18.0)
Hct 31.5 L %
(39.0-52.0)
MCV 101.3 H fL
(80.0-94.0)
MCH 33.1 H pg
(27.0-31.0)
MCHC 32.7 L g/dL
(33.0-37.0)
Absolute Lymphs (auto) 1.1 L 10^3/uL
(1.2-3.4)
Lymphocytes % 18.8 L %
(20.5-51.1)
Potassium 5.2 H mmol/L
(3.5-5.1)
Chloride 108 H mmol/L
(98-107)
Carbon Dioxide 18 L mmol/L
(22-30)
BUN 85 H mg/dl
(9-20)
Creatinine 4.2 H* mg/dL
(0.7-1.3)
Glucose 138 H mg/dl
(70-99)
AST 16 L U/L
(17-59)
05/17/24 09:22
05/17/24 09:22
Vital Signs
Initial and Last Documented VS:
Initial Vital Signs
Pulse Resp
63 7
05/17/24 09:08 05/17/24 09:08
Last Documented Vital Signs
Temp Pulse Resp BP Pulse Ox
97.5 F 82 20 126/65 99
05/17/24 09:10 05/17/24 13:04 05/17/24 13:04 05/17/24 13:04 05/17/24 13:04
<Svitlana Bennett PA-C - Last Filed: 05/17/24 13:51>
MDM/Problems Addressed
Differential Diagnosis Includes:
Not limited to: Vasovagal syncope, cardiogenic syncope, viral gastroenteritis, orthostatic hypotension, dehydration, etc.
MDM/Problems Addressed:
84-year-old male with history as documented presenting following syncopal event this morning after having a bowel movement. There was no preceding chest pain, shortness of breath, or dizziness. He did have a few episodes of vomiting after
regaining consciousness. He does report constipation over the past 5 days resolved this morning after magnesium citrate last night. Vital stable-BP soft initially. Patient is afebrile. Physical exam as above. History most consistent with likely
vasovagal syncope/hypovolemia. Low suspicion for cardiac syncope. Will obtain basic labs, EKG. Will give small bolus of IV fluids. Will closely monitor and reassess
Chronic conditions affecting care:
Stage IV CKD
Acute Exacerbation and/or Progression of Chronic Illness:
N/A
<Svitlana Bennett PA-C - Last Filed: 05/17/24 13:51>
*Pulse Oximetry
Patient hypoxic: no
*EKG
Interpreted by ED Provider?: Yes
EKG Intrepretation Date: 05/17/24
Interpretation: abnormal
Heart Rate: 57
Rate: bradycardiac
Rhythm: sinus
Interval: first degree heart block
QRS Pattern: normal QRS
Ischemia: non-specific ST changes
*Web Merchant Interpretation
Rate: normal
Interpretation: normal
Heart Rate: 76
Rhythm: sinus
*Critical Care Note
Total Time (30-74mins, 75-104mins- exclusive of procedures): Not Applicable
<Svitlana Bennett PA-C - Last Filed: 05/17/24 13:51>
Update Note
Update Note:
Update 10:22 AM: Into reassess patient at bedside. Blood pressure has increased to 110/52. Patient remains asymptomatic and well-appearing. Labs reviewed which appears stable. Creatinine 4.2. Potassium only very mildly elevated at 5.2. Patient
scheduled to start dialysis shortly. Given age and associated comorbidities�admission to hospital for observation was offered although patient prefers to be discharged back to [facility]. Will p.o. challenge patient. Anticipate discharge.
Update: Patient tolerated crackers without any repeat vomiting episodes. Patient remains well-appearing. Patient stable for discharge with return precautions and primary care follow-up. He has appointment scheduled with Dr. Wells to plan dialysis
start.
ED Attending Note
<Svitlana Bennett PA-C - Last Filed: 05/17/24 13:51>
-
Portions of this chart may have been created with voice recognition software.� Occasional wrong word or��sound alike� substitutions may have occurred due to the inherent limitations of voice recognition software.
<Tierra Garrett MD - Last Filed: 05/17/24 11:16>
ED Attending Note
Patient seen and examined by attending physician: Yes
I performed the substantive portion of visit, reviewed & personally made and approve the management plan that is documented in note by myself or SARIAH.: Yes
ED Attending Note:
I have seen and evaluated the patient with a [id number] encounter. I have spoken to the [PA] and involved in the medical history, the physical exam, medical decision making.
Evaluation and management service: agree unless noted differently below.
Results interpretation: agree unless noted differently below.
84-year-old man presenting to the emergency room after syncopal event. Patient states that he has been constipated for the past few days so a few days ago he received milk of magnesium. This morning he went to the bathroom was attempting to have a
bowel movement where he was straining became lightheaded dizzy developed tunnel vision and then passed out while sitting on the toilet. He did not fall or hit his head. He denies any chest pain or shortness of breath or palpitations. When he came
to he did have a few episodes of emesis. He does feel much better on arrival. He is not before. He does not feel dehydrated. He does state that he is starting dialysis soon. On my evaluation patient is resting comfortably. His oral mucosa is
moist. Lungs are clear to auscultation bilaterally and his abdomen is soft. Initially his blood pressure was 96/53 which did improve after a small fluid bolus to 110/52. Patient does feel much better. Syncope is consistent with
vasovagal/hypovolemic. Less likely to be cardiac syncope. I did offer patient admission for observation given his age and medical history however patient would prefer to go back to his facility. Will ambulate to make sure patient's
lightheadedness dizziness has improved as well as a p.o. challenge before discharge. His blood work is similar to prior.
Discharge Plan
Departure
Patient Disposition: Home (Routine Discharge)
Date of Disposition: 05/17/24
Time of Disposition: 11:37
Patient with high blood pressure during this ER visit?: No
Condition: Good
Covid-19: Not Applicable
Discharge Problem:
Vasovagal syncope
Instructions: Syncope (Fainting) (DC), Vasovagal Response (DC)
Prescriptions:
No Action
acetaminophen 325 mg Tablet
650 mg PO Q6HPRN PRN (Reason: mild pain)
cyanocobalamin (vitamin B-12) [Vitamin B-12] 1,000 mcg Tablet
1,000 mcg PO DAILY
clopidogrel 75 mg Tablet
75 mg PO DAILY
magnesium hydroxide [Milk of Magnesia] 400 mg/5 mL Suspension
30 ml PO DAILYPRN PRN (Reason: constipation)
bisacodyl [Dulcolax (bisacodyl)] 10 mg Suppository
10 mg [place] DAILYPRN PRN (Reason: if mom is ineffective)
simvastatin 20 mg Tablet
20 mg PO DAILY
metoprolol succinate 25 mg tablet extended release 24 hr
12.5 mg PO DAILY
sevelamer carbonate 800 mg tablet
800 mg PO AC
ascorbic acid (vitamin C) [Vitamin C] 500 mg Tablet
500 mg PO DAILY
tamsulosin 0.4 mg Capsule
0.4 mg PO DAILY
furosemide 20 mg Tablet
20 mg PO DAILY
Lokelma 10 gram powder in packet
10 g PO Q48H
sodium bicarbonate 325 mg Tablet
975 mg PO TID
Saline Nasal 0.65 % Aerosol,[place]
1 spray INTRANASAL Q8HPRN PRN (Reason: dry nares)
Sore Throat Aerosol,[place]
2 spray MUCOUS MEMBRANE Q4HPRN PRN (Reason: sore throat)
ferrous gluconate 324 mg (38 mg iron) Tablet
324 mg PO DAILY
Referrals:
Arnaud Kelly MD [Family Provider] - Follow up in 5-7 days
Eusebio Wells MD [Active] - Keep scheduled appt
Activity Restrictions/Additional Instructions:
RETURN TO THE EMERGENCY DEPARTMENT WITH ANY FEVERS, CHEST PAIN, SHORTNESS OF BREATH, DIZZINESS, REPEAT FAINTING EPISODES, WORSENING IN CURRENT SYMPTOMS, OR ANY OTHER CONCERNS
-You came to the emergency department for evaluation following a syncopal event. Suspect this is likely a vasovagal response. Your labs appear stable in the emergency department today. You were given some IV fluids.
-You should follow-up with your primary care doctor and Dr. Wells for further evaluation/management as needed
Monitor your symptoms closely and return to the emergency department with any acute worsening/new symptoms or any other concerns
Interventions
Interventions:
*Risk Screen - Suicide Last Done: 05/17/24 09:10
*General Assessment Last Done: 05/17/24 09:10
*Neglect/Abuse Screening Last Done: 05/17/24 09:10
ED- Fall Risk Assessment Last Done: 05/17/24 09:10
*ED COVID-19 Vaccine History Last Done: 05/17/24 09:10
*Nursing Disposition Last Done: 05/17/24 13:05
ED- Cardiac Assessment Last Done: 05/17/24 09:10
ED- Neurological Assessment Last Done: 05/17/24 09:10
Discharge Date and Time
Discharge Date/Time: 05/17/24 13:07
Print Language: ECUADOREAN
[2024-05-17 09:36] LABS: % Basophils 0.9 % (0-2); % Immature Granulocytes 0.2 % (0-0.5); % Lymphocytes 18.8 % (20.5-51.1); % Monocytes 8.4 % (1.7-9.3); % Neutrophils 67.7 % (42.2-75.2); Absolute Basophils 0.1 10^3/uL (0-0.2); Absolute Eosinophils 0.2 10^3/uL (0-0.7); Absolute Lymphocytes 1.1 10^3/uL (1.2-3.4); Absolute Monocytes 0.5 10^3/uL (0.1-0.6); Absolute Neutrophils 3.9 10^3/uL (1.4-6.5); Hematocrit 31.5 % (39.0-52.0); Hemoglobin 10.3 g/dL (13.0-18.0); Mean Corp Hgb Conc. 32.7 g/dL (33.0-37.0); Mean Corpuscular Hgb 33.1 pg (27.0-31.0); Mean Corpuscular Volume 101.3 fL (80.0-94.0); Mean Platelet Volume 9.7 fL (7.4-10.4); Nucleated Red Blood Cells % 0 % (-); Platelet Count 172 10^3/uL (130-400); Red Blood Cell Count 3.11 10^6/uL (4.70-6.10); White Blood Cell Count 5.8 10^3/uL (4.8-10.8)
[2024-05-17 09:54] LABS: ALT (SGPT) 14 U/L (0-50); AST (SGOT) 16 U/L (17-59); Albumin 3.9 g/dl (3.5-5.0); Alkaline Phosphatase 100 U/L (38-126); Blood Urea Nitrogen 85 mg/dl (9-20); Calcium 9.2 mg/dl (8.4-10.2); Carbon Dioxide 18 mmol/L (22-30); Chloride 108 mmol/L (98-107); Estimated Creatinine Clearance 11 ml/min; Glucose 138 mg/dl (70-99); Potassium 5.2 mmol/L (3.5-5.1); Sodium 140 mmol/L (135-145); Total Bilirubin 0.2 mg/dl (0.2-1.3); Total Protein 6.4 g/dl (6.3-8.2); eGFR 13.18
[2024-05-17] MEDS: NSS 500 IV (10:40)
== END 2024-05-17 13:07 ==
LOC: EMR 09:05
PROVIDERS: EMERGENCY PHYSICIAN Student in an Organized Health Care Education/Training Program; FAMILY PHYSICIAN Internal Medicine
DX: R55 Syncope and collapse (principal); I13.0 Hypertensive heart and chronic kidney disease with heart failure and stage 1 through stage 4 chronic kidney disease, or unspecified chronic kidney disease; N18.4 Chronic kidney disease, stage 4 (severe); I50.9 Heart failure, unspecified; Z95.828 Presence of other vascular implants and grafts
CPT/HCPCS: 96360; 99284; 80053; 85025; 93005

== ENCOUNTER 2024-06-19 09:33 | Day surgery (SDC) | payer MEDICARE, OTHER, SELFPAY ==
--- NOTE | 2024-06-13 14:50 | PTCARENOTE ---
Abnormal EKG on 05/17/24. Dr. Pierce aware. No interventions needed.
[2024-06-19] VITALS (12 sets, daily range): BP systolic 114–145; BP diastolic 46–102; BMI 22.1
[2024-06-19] MEDS: BACTROBAN NASAL 1 GRAM NASAL (10:30)
[2024-06-19] MEDS: PERIDEX 0.12% ORAL RINSE 15 ML PO (10:30)
[2024-06-19] MEDS: NSS 500 IV (10:55)
[2024-06-19 11:15] LABS: Hematocrit 30.6 % (39.0-52.0); Hemoglobin 9.8 g/dL (13.0-18.0); Mean Corpuscular Hgb 32.5 pg (27.0-31.0); Mean Corpuscular Volume 101.3 fL (80.0-94.0); Mean Platelet Volume 10.1 fL (7.4-10.4); Platelet Count 173 10^3/uL (130-400); Red Blood Cell Count 3.02 10^6/uL (4.70-6.10); Red Cell Dist. Width 12.8 % (11.5-14.5)
[2024-06-19 11:28] LABS: INR 1.02; PT 13.7 Sec (11.4-14.6)
[2024-06-19 11:35] LABS: Blood Urea Nitrogen 93 mg/dl (9-20); Calcium 9.2 mg/dl (8.4-10.2); Carbon Dioxide 23 mmol/L (22-30); Chloride 107 mmol/L (98-107); Glucose 114 mg/dl (70-99); Potassium 4.5 mmol/L (3.5-5.1); Sodium 142 mmol/L (135-145); eGFR 13.97
[2024-06-19 11:59] LABS: APTT 48.3 Sec (23.4-35.0)
--- NOTE | 2024-06-19 14:02 | W.SUR.POST ---
Surgical Immediate Post Op
Note
Pre Op Diagnosis: End-stage renal disease
Post Op Diagnosis: Same
Procedure Performed: Left upper extremity brachioaxillary AV graft placement
Primary Surgeon: Russell
Assist: Nolberto HERNANDEZ
Anesthesia: General
Estimated Blood Loss: 15 cc
Fluids: See anesthesia flowsheet
Drains/Shunts: None
Specimens/Cultures: None
Doppler/Duplex/Angio (Y/N): Y
Complications: None
Operative Findings: + Doppler signal left ulnar
--- NOTE | 2024-06-19 14:10 | OR.RPT ---
Operative Report
Operative Report
PROCEDURE DATE: 06/19/2024
Preoperative diagnosis: CKD stage V, approaching hemodialysis.
Postoperative diagnosis: Same
Procedure:
1. Creation of left upper extremity brachial to axillary vein graft with 7 mm x 4 mm tapered [place] Propaten graft.
2. Localized thrombectomy axillary vein.
Surgeon: Russell
Insurance Appraiser: BRENTON Arvizu, required for all aspects of procedure including assistance with traction/countertraction, following of suture line, assistance with closure.
Complications: None
Anesthesia: General
Indications for procedure:
Chronic kidney disease approaching hemodialysis needs. Underwent transposed basilic vein AV fistula, but unfortunately this was unable to be matured and thrombosed. Now brought for AV graft creation as he had no other suitable bilateral upper
extremity vein options. Risk/benefit/alternatives all fully discussed. Patient understood all wished to proceed.
Description of procedure:
Patient was identified brought to the operating room placed on the table in supine position. After the adequate administration of anesthesia he was prepped and draped in the standard surgical fashion. A standard preoperative timeout was undertaken
and everybody was in agreement the plan. A longitudinal incision was made in the distal medial left upper arm overlying the pulsation of the brachial artery. This was carried through skin subcutaneous tissue and through the fascial layer.
Identified the brachial artery and carefully dissected away from surrounding structures to great care to avoid any injury to surrounding structures. Vesseloops passed around it proximally and distally. In the proximal extent it started to get into
scar tissue from prior exposure of the brachial artery for fistula creation. However, I did not need to dissect any further proximally. I now made a longitudinal incision in the medial proximal upper arm extending into the axilla. Using the
electrocautery I dissected down to the subcutaneous tissue. I dissected through the fascial layer and identified the axillary vein (confluence of several veins. Branches were controlled with Vesseloops. Proximal and distal axillary/deep vein were
controlled also with Vesseloops. Careful circumferential dissection of course was undertaken to avoid any injury to surrounding structures. Now I used a Wood tunneler to create a subcutaneous tunnel between the 2 incision sites. An additional
counterincision was made overlying the head of the biceps so as to be able to tunnel further laterally (given history of basilic vein transposition). A 7 mm x 4 mm tapered [place] Propaten graft was tunneled between the incision sites as such with a 7
mm and at the venous side.
Now the patient was given 5000 units of intravenous heparin. The axillary vein was soft, but it almost look like there was something in the lumen and therefore I felt I wanted to expose this vein first before I did the arterial anastomosis.
Therefore I placed a bulldog clamp on the more central aspect of the vein and tightened my double looped Vesseloops on the proximal vein and the branches. I now made a venotomy with an 11 blade and extended using a Farfan scissor. At the distal
extent (central) of the vein there was some thrombus I could see. It appeared to be actually relatively subacute clot rather than formed thrombus. I was able to grasp this with a DeBakey forcep and tease it out and it came out en bloc. I then had
some backbleeding. To be sure, I used a Alice catheter that I ran through several times and retrieved no further thrombus (4 and 5 [place]uv[place] Alice catheters utilized). Therefore, I felt it was reasonable to proceed with graft anastomosis. I
beveled the 7 mm end of the graft and sewed an end-to-side anastomosis to the vein using a running CV 6 [place] suture. I completed and tied down my suture line. I then released the Vesseloops and a bulldog clamp on the vein. I then clamped the
venous side of the graft. I then turned to the arterial side. I double looped and tightened my Vesseloops on the artery proximally distally. I made an arteriotomy with an 11 blade and extended using a Farfan scissor. I then trimmed and beveled
the 4 mm end of the graft and sewed an end-to-side anastomosis to the artery using a running [place] CV 6 suture. I completed and tied down my suture line. Next I released the Vesseloops on the [place] artery. I then released my graft clamp. There
was a weak thrill in the graft, but a good Doppler signal in the outflow vein. There is essentially graft dependent or graft augmented. There was good ulnar artery Doppler signal at the wrist. I felt the signals and graft thrill were slightly
weakened secondary to low blood pressure in the OR. At this point I was satisfied. I then irrigated all incision sites including the counterincision site. Achieved and confirmed full hemostasis. We then closed in layers using 3-0 Vicryl deep
dermal layer followed by 4-0 Monocryl subcuticular running stitch through all 3 incision sites. Dermabond was applied. The patient tolerated procedure well.
[2024-06-19] MEDS: SUBLIMAZE 25 MCG IV (14:23)
--- NOTE | 2024-06-19 15:33 | PTCARENOTE ---
Pt tolerating PO intake w/o incident. Phone report called to Meghna Best RN at [facility]. All questions addressed.
--- NOTE | 2024-06-19 16:18 | PTCARENOTE ---
1545: Assisted pt to dress. PIV D/C'd. Dressing placed. Assist pt to stand, pivot and sit in his WC. Pt fabiola all well.
1600: Pt to atrium via WC for d/c to [facility] Transport Van.
1610: Assist Pt/ WC into transport van w/o incident.
== END 2024-06-19 16:10 | disposition home or self-care (01) ==
LOC: CATH 09:33
PROVIDERS: ATTENDING PHYSICIAN Surgery Vascular Surgery
DX: I13.2 Hypertensive heart and chronic kidney disease with heart failure and with stage 5 chronic kidney disease, or end stage renal disease (principal); N18.6 End stage renal disease; I50.9 Heart failure, unspecified; Z99.2 Dependence on renal dialysis; Z87.891 Personal history of nicotine dependence; Z79.02 Long term (current) use of antithrombotics/antiplatelets; Z79.899 Other long term (current) drug therapy
CPT/HCPCS: 36830; 80048; 85027; 85610; 85730; 86850; 86900; 86901; C1757; C1768

== ENCOUNTER → 2024-07-18 11:00 | Outpatient (REF) | payer MEDICARE, OTHER, SELFPAY | LOC: RAD 11:00 | PROVIDERS: ATTENDING PHYSICIAN Registered Nurse; FAMILY PHYSICIAN Internal Medicine | DX: N18.6 End stage renal disease (principal); I13.2 Hypertensive heart and chronic kidney disease with heart failure and with stage 5 chronic kidney disease, or end stage renal disease; Z99.2 Dependence on renal dialysis; I77.0 Arteriovenous fistula, acquired | CPT/HCPCS: 93990 ==

== ENCOUNTER 2024-08-21 08:26 | Inpatient (IN) | payer MEDICARE, OTHER, SELFPAY ==
[2024-08-17 18:47] VITALS: BMI 23.0
[2024-08-17 18:56] VITALS: BP 111/57
[2024-08-17 19:15] LABS: % Basophils 0.9 % (0-2); % Eosinophils 4.3 % (0-6); % Immature Granulocytes 0.2 % (0-0.5); % Lymphocytes 20.2 % (20.5-51.1); % Monocytes 9.4 % (1.7-9.3); Absolute Eosinophils 0.2 10^3/uL (0-0.7); Absolute Lymphocytes 0.9 10^3/uL (1.2-3.4); Absolute Monocytes 0.4 10^3/uL (0.1-0.6); Absolute Neutrophils 2.9 10^3/uL (1.4-6.5); Hematocrit 31.6 % (39.0-52.0); Hemoglobin 10.1 g/dL (13.0-18.0); Mean Corpuscular Hgb 31.5 pg (27.0-31.0); Mean Corpuscular Volume 98.4 fL (80.0-94.0); Mean Platelet Volume 10.5 fL (7.4-10.4); Nucleated Red Blood Cells % 0 % (-); Platelet Count 166 10^3/uL (130-400); Red Blood Cell Count 3.21 10^6/uL (4.70-6.10); Red Cell Dist. Width 13.3 % (11.5-14.5); White Blood Cell Count 4.5 10^3/uL (4.8-10.8)
[2024-08-17 19:43] LABS: ALT (SGPT) 24 U/L (0-50); AST (SGOT) 21 U/L (17-59); Albumin 3.7 g/dl (3.5-5.0); Alkaline Phosphatase 129 U/L (38-126); Blood Urea Nitrogen 108 mg/dl (9-20); Calcium 9.5 mg/dl (8.4-10.2); Carbon Dioxide 27 mmol/L (22-30); Chloride 104 mmol/L (98-107); Glucose 93 mg/dl (70-99); Potassium 4.7 mmol/L (3.5-5.1); Sodium 139 mmol/L (135-145); Total Bilirubin 0.3 mg/dl (0.2-1.3); Total Protein 6.2 g/dl (6.3-8.2); eGFR 13.18
[2024-08-17 22:17] VITALS: BP 128/51
[2024-08-17 23:00] VITALS: BP 144/49
--- NOTE | 2024-08-17 23:42 | ED.GENMED ---
History of Present Illness
General
Chief Complaint: Abnormal Lab Value
Source: patient
Exam Limitations: none
Time Seen by Provider: 08/17/24 22:44
Nursing documentation reviewed up to this point in time: agreed with
History of Present Illness
History of Present Illness:
Pleasant 84-year-old male presents to the emergency department with elevated BUN and creatinine. He had routine patient has no complaints. He had a fistula placed by Dr. Wells in May.
Review of Systems
Review of Systems
Allergies reviewed?: Yes
All Other Systems: Not applicable
Constitutional: Reports no symptoms
EENT: Reports no symptoms
Respiratory: Reports no symptoms
Cardiac: Reports no symptoms
ABD/GI: Reports no symptoms
: Reports no symptoms
Musculoskeletal: Reports no symptoms
Skin: Reports no symptoms
Neurological: Reports no symptoms
Endocrine: Reports no symptoms
Hematologic/Lymphatic: Reports no symptoms
Psychiatric: Reports no symptoms
Phy Exam
General Physical Exam
General Presentation: well appearing and no apparent distress
General Skin: warm and dry
General Habitus: normal
General Mental: alert
General Hydration: appears well hydrated
ENT Exam
ENT Exam: EOMI, pharynx normal, neck supple and normocephalic
Eye Exam
Eye Exam: PERRL, cornea clear and conjunctiva normal
Cardiovascular Exam
Cardiovascular Exam: regular rate/rhythm, no edema, no murmur and normal peripheral pulses
Pulmonary Exam
Pulmonary Exam: lungs clear, no respiratory distress, no rales, no crackles, no rhonchi, no stridor, no wheezing and no cough
Gastrointestinal Exam
Gastrointestinal Exam: normal bowel sounds, non tender, soft, no organomegaly, no pulsatile mass and non distended
Neurological Exam
Neurological Exam: alert, oriented x3, no motor deficits and speech normal
Musculoskeletal Exam
Musculoskeletal Exam: full ROM and no edema
Skin Exam
Skin Exam: warm/dry and other (dusky appearing)
Psychiatric Exam
Psychiatric Exam: normal mood/affect
Course
Orders/Labs/Results
Orders:
Orders
08/17/24 19:05
Complete Blood Count/With Diff Urgent
Comprehensive Metabolic Panel Urgent
08/18/24 02:53
Admit/Transfer Patient As Directed
Co-Sign Provider:
Level of Care: Observation services
Assign to:: Telemetry
Physician / Group: Alex
Diagnosis: CKD V
Reason for Telemetry: Arrhythmia
Date to Stop Telemetry: 08/21/24
Time to Stop Telemetry: 11:00
PRN Pain Medication Management As Directed
May give lesser potent ordered pain med per pt: Yes
preference::
Protocol:: Medication orders for pain may be administered in a
manner that supports deferring to patient preference
when the pt is:
- Requesting an ordered lesser potent pain medication.
Least to most potent pain medications are defined
as: acetaminophen < NSAID < tramadol < opioids
(morphine, oxycodone, hydromorphone).
- Requesting a lesser dose of the same medication IF
ORDERED.
- Requesting a less intrusive route of administration
if both routes are prescribed by the provider (PO <
IV).
08/18/24 02:54
Code Status As Directed
Resuscitation Status: Full Code
08/18/24 04:14
Acetaminophen [Tylenol] 650 mg PO Q6HPRN PRN
Oxycodone [Roxicodone] 5 mg PO Q6HPRN PRN
Sodium Zirconium Cyclosilicate [Lokelma] 10 gram PO Q48H
08/18/24 04:14
NEPHROLOGY CONSULT Routine
Consulting Provider: Tahir Hope V.
Was physician already notified: Yes
Reason for consult: CKD V
B12 [Vitamin B12] Routine
Folate Routine
Iron Routine
Total Iron Binding Routine
Activity As Directed
Activity Level: Ambulate
With Assistance
Bladder Scan As Directed
Follow Bladder Retention/Intermittent Cath Algorithm?: Yes
PRN if no void in __ hours: 6
Frequency: Per Retention Algorithm
If Bladder Scan Result >: 400
then:: Straight cath
EKG with chest pain [ECG as needed] As Directed
ECG as needed for:: Chest Pain
I/O [Intake/ Output] As Directed
Frequency: Per unit guidelines
Straight Cath As Directed
Frequency: Per Retention Algorithm
Additional Instructions: straight cath as needed per acute urinary retention algorithm for 24 hrs
Additional Instructions: for bladder scan greater than 400 mL
Vital Signs As Directed
Frequency: Per unit guidelines
Weight As Directed
Frequency: Daily
Oxygen Therapy [O2 Therapy] [RESP] Routine
Titrate/Wean O2 to maintain O2 sat greater than (%): 94
Ot Eval And Treat Routine
PT Consult [Pt Eval And Treat] Routine
Activity Level: Ambulate
With Assistance
DX Deep Vein Thrombosis Video Routine
08/18/24 Breakfast
Sodium, 2 Gram
Fluid Restriction: 1440 mL/day (48 oz)
Low Sodium: Potassium, 2 Gram
Basic Metabolic Panel IN AM
Complete Blood Count/No Diff IN AM
US Periph Art LOWER Ext w MAYTE IN AM
Comment:
Reason For Exam: PAD
08/18/24 07:30
Sevelamer Carbonate [Renvela] 800 mg PO AC
08/18/24 08:00
Ascorbic Acid [Vitamin C] 500 mg PO DAILY
Clopidogrel Bisulfate [Plavix] 75 mg PO DAILY
Cyanocobalamin [Vitamin B-12] 1,000 mcg PO DAILY
Docusate Sodium [Colace] 200 mg PO DAILY
Ferrous Sulfate [Feosol] 325 mg PO DAILY
Heparin 5,000 units SC Q12
Metoprolol Xl [Toprol Xl] 12.5 mg PO DAILY
Tamsulosin [Flomax] 0.4 mg PO DAILY
simvastatin 20 mg PO DAILY
sodium bicarbonate 975 mg PO TID
08/21/24 11:00
DC Protocol for Telemetry ONCE
Abnormal Lab Results
08/17/24
19:05
WBC 4.5 L 10^3/uL
(4.8-10.8)
RBC 3.21 L 10^6/uL
(4.70-6.10)
Hgb 10.1 L g/dL
(13.0-18.0)
Hct 31.6 L %
(39.0-52.0)
MCV 98.4 H fL
(80.0-94.0)
MCH 31.5 H pg
(27.0-31.0)
MCHC 32.0 L g/dL
(33.0-37.0)
MPV 10.5 H fL
(7.4-10.4)
Absolute Lymphs (auto) 0.9 L 10^3/uL
(1.2-3.4)
Lymphocytes % 20.2 L %
(20.5-51.1)
Monocytes % 9.4 H %
(1.7-9.3)
BUN 108 H* mg/dl
(9-20)
Creatinine 4.2 H* mg/dL
(0.7-1.3)
Alkaline Phosphatase 129 H U/L
(38-126)
Total Protein 6.2 L g/dl
(6.3-8.2)
08/17/24 19:05
08/17/24 19:05
Vital Signs
Initial and Last Documented VS:
Initial Vital Signs
Temp Pulse Resp BP Pulse Ox
98.2 F 90 16 111/57 98
08/17/24 18:56 08/17/24 18:56 08/17/24 18:56 08/17/24 18:56 08/17/24 18:56
Last Documented Vital Signs
Temp Pulse Resp BP Pulse Ox
98.2 F 66 22 128/51 98
08/17/24 18:56 08/17/24 22:30 08/17/24 22:30 08/17/24 22:17 08/17/24 18:56
*Critical Care Note
Total Time (30-74mins, 75-104mins- exclusive of procedures): Not Applicable
Update Note
Update Note:
Spoke with Dr. Hope, nephrology. He is unfamiliar with this case. Patient has not established care with his group. Patient to be brought into the hospital for consultation and possible dialysis.
Patient on 2 L nasal cannula. Pulse ox was spotty. Patient had no respiratory complaints
ED Attending Note
-
Portions of this chart may have been created with voice recognition software.� Occasional wrong word or��sound alike� substitutions may have occurred due to the inherent limitations of voice recognition software.
Discharge Plan
Departure
Patient Disposition: Admit
Date of Disposition: 08/18/24
Time of Disposition: 00:24
Admit to: Telemetry
Presentation/result/management discussed w/ accepting MD/DO: Hospitalist
Condition: Good
Discharge Problem:
Renal failure
Interventions
Interventions:
*Risk Screen - Suicide Last Done: 08/17/24 18:56
*Neglect/Abuse Screening Last Done: 08/18/24 02:13
*ED- Fall Risk Assessment Last Done: 08/18/24 02:13
*ED COVID-19 Vaccine History Last Done: 08/18/24 02:13
[2024-08-18] VITALS (12 sets, daily range): BP systolic 107–142; BP diastolic 46–83; PULSE 70; O2SAT 96; BMI 22.2
--- NOTE | 2024-08-18 02:59 | HPS.HSE ---
Family Physician
-
Family Physician: Lukasz Kelly MD
Chief Complaint
-
'Abnormal Labs'
History of Present Illness
Patient is an 84y M with PMH significant for CKD V, DDD and ambulatory dysfunction who presents to ED for evaluation of 'abnormal labs'. Patient has outpatient labs drawn this AM at [facility]. They received a call from the lab that his
values were abnormal and patient was sent to the ED for evaluation. Patient has no specific complaints or concerns.
Patient states that he has long-standing kidney disease - initially followed in [place]. He relocated to [place] > 1 year ago and has been a resident at [facility].
Patient was initially evaluated by Nephrology in 2023 (Dr. Tinajero) but was since lost to follow-up.
He was seen by Vascular Surgery for HD access and had LUE AVF placed in 12/2023 (failed) and LUE AVG placed in 06/2024.
Medical History
Past Medical History
Past Medical History: Reports Other
Additional Past Medical History:
CKD V
Chronic Hyperkalemia
Chronic Metabolic Acidosis
Hypertension
Anemia of CKD
BPH
COPD
CHF
DDD
Ambulatory Dysfunction
Chronic Pain
Past Surgical History: Reports Other
Additional Past Surgical History:
LUE AVF (12/2023)
LUE Fistulogram x 2 (with stent x 1)
LUE AVG (06/19/24)
Back Surgery x 3
Social History
Tobacco: Former Smoker (Quit smoking about 1 year ago. > 40 pack years total use.)
Alcohol: None
Drug: None
Living: Penitentiary
Family History
Family History: Not pertinent
Allergies / Home Medications
Allergies reflects when Allergies were last updated in [employer].
Home Medications with original date entered in [employer]
Allergy/Medication List:
Allergies
Allergy/AdvReac Type Severity Reaction Status Date / Time
No Known Allergies Allergy Verified 08/17/24 18:58
Home Medications
acetaminophen 325 mg tablet 650 mg PO Q6HPRN PRN mild pain 11/16/23
bisacodyl 10 mg rectal suppository (Dulcolax (bisacodyl)) 10 mg UT DAILYPRN PRN if mom is ineffective 11/16/23
clopidogrel 75 mg tablet 75 mg PO DAILY Blood Clot Prevention/Tx 11/16/23
cyanocobalamin (vitamin B-12) 1,000 mcg tablet (Vitamin B-12) 1,000 mcg PO DAILY Supplement 11/16/23
magnesium hydroxide 400 mg/5 mL oral suspension (Milk of Magnesia) 30 ml PO DAILYPRN PRN constipation 11/16/23
simvastatin 20 mg tablet 20 mg PO DAILY High Cholesterol 11/16/23
ascorbic acid (vitamin C) 500 mg tablet (Vitamin C) 500 mg PO DAILY Supplement 12/17/23
tamsulosin 0.4 mg capsule 0.4 mg PO DAILY Urinary Issue 12/20/23
furosemide 20 mg tablet 20 mg PO DAILY Fluid Retention/Swelling 03/07/24
sodium zirconium cyclosilicate 10 gram oral powder packet (Lokelma) 10 g PO Q48H high potassium level 03/07/24
sodium bicarbonate 325 mg tablet 975 mg PO TID Supplement 03/08/24
ferrous gluconate 324 mg (38 mg iron) tablet 324 mg PO DAILY Supplement 05/17/24
phenol-phenolate sodium mucosal aerosol spray (Sore Throat [place]) 2 spray mucous membrane Q4HPRN PRN sore throat 05/17/24
docusate sodium 100 mg capsule 200 mg PO DAILY 06/15/24
sevelamer HCl 800 mg tablet 800 mg PO AC 06/15/24
oxycodone 5 mg tablet 5 mg PO Q6HPRN PRN moderate pain #5 tabs 06/19/24
metoprolol succinate 25 mg capsule sprinkle, ext. release 24 hr 12.5 mg PO DAILY 08/17/24
Review of Systems
-
History Source: Patient
A 12 point ROS was completed and negative except as noted: Yes
Constitutional: Denies Fever or Chills
Respiratory: Denies Cough or Trouble Breathing
Cardiac: Denies Chest Pain or Palpitations
Abdomen/GI: Denies Abdominal Pain, Nausea, Vomiting or Diarrhea
: Denies Dysuria or Frequency
Musculoskeletal: Reports Other (Chr back pain / ambulatory dysfunction.); Denies Joint Pain or Edema
Neurological: Denies Dizzy or Headache
Physical Exam
Vital Signs
Vital Signs
Temp Pulse Resp BP Pulse Ox
98.2 F 66 22 128/51 98
08/17/24 18:56 08/17/24 22:30 08/17/24 22:30 08/17/24 22:17 08/17/24 18:56
Physical Exam
General: Other (84y M in no acute distress.)
HEENT: Moist mucous membranes and PERRLA
Respiratory: Clear; No Wheezes, Rales or Rhonchi
Cardiac: S1/S2, Regular Rhythm and Murmur (III/ CHILANGO)
GI: Soft, Non Tender, Non Distended and Normal Bowel Sounds
Musculoskeletal: No Clubbing, No Cyanosis and No Edema
Neuro: AO x 3
Hematologic/Lymphatic: Other (Cool extremities - L > R. Pulses diminished / decreased cap refill in L foot.)
Laboratory Results
-
08/17/24 19:05
08/17/24 19:05
Laboratory Results
Total Bilirubin 0.3 mg/dl (0.2-1.3) 08/17/24 19:05
AST 21 U/L (17-59) 08/17/24 19:05
ALT 24 U/L (0-50) 08/17/24 19:05
Alkaline Phosphatase 129 U/L (38-126) H 08/17/24 19:05
Impression/Plan
-
A/P: Patient is an 84y M with PMH significant for CKD V, hypertension and chronic anemia who presents to ED for evaluation of 'abnormal labs'.
CKD V
- Observe overnight for further evaluation and treatment.
- Patient has apparently been lost to follow-up by the Nephrology group.
- His labs do not appear to be significantly changed from prior values here.
- No acute HD needs. LUE AVG is ready for use if needed.
- Continue current medications.
- Nephrology evaluation in the AM.
Anemia of CKD
- Stable. Hgb is at / near known baseline.
- Continue current supplements (iron, B12, etc).
- Follow for changes.
ASCVD / PAD
- Cool L foot with decreased pulses - though not acutely changed per patient.
- Check non-invasive vascular studies.
- Continue current CV med regimen including Plavix, statin, etc.
Chronic Back Pain
DDD
Chronic Ambulatory Dysfunction
- Patient states that he is 'mostly bed-bound' though he is able to ambulate with a walker.
- PT / OT evaluations.
- Continue current pain control regimen.
DVT Prophylaxis: Subcut Heparin
Code Status: Full
--- NOTE | 2024-08-18 05:06 | PTCARENOTE ---
Provider notified of episode of missed QRS / 2deg- t1. see EKG record for strip.
--- NOTE | 2024-08-18 05:41 | W.PN.UPDATE ---
Update Note
Progress Note Update
Asked to evaluate patient by RN. Patient on telemetry, in NSR, now noted to have periods of arrhythmia/2nd degree AV block. Patient asymptomatic, sleeping. Strips in chart, EKG ordered. Mag ordered. Cardiology consulted.
[2024-08-18] MEDS: LOKELMA 10 GRAM PO (05:51)
[2024-08-18 06:27] LABS: Blood Urea Nitrogen 111 mg/dl (9-20); Calcium 9.4 mg/dl (8.4-10.2); Carbon Dioxide 20 mmol/L (22-30); Chloride 111 mmol/L (98-107); Estimated Creatinine Clearance 12 ml/min; Glucose 92 mg/dl (70-99); Iron 69 ug/dl (49-181); Magnesium 2.5 mg/dl (1.6-2.3); Potassium 5.3 mmol/L (3.5-5.1); Sodium 141 mmol/L (135-145); eGFR 13.57
[2024-08-18 06:44] LABS: Percent Saturation 27 % (20-50); Total Iron Binding Capacity 251 ug/dl (261-462)
[2024-08-18 06:46] LABS: Hemoglobin 10.1 g/dL (13.0-18.0); Mean Corp Hgb Conc. 32.6 g/dL (33.0-37.0); Mean Corpuscular Hgb 32.8 pg (27.0-31.0); Mean Corpuscular Volume 100.6 fL (80.0-94.0); Mean Platelet Volume 10.2 fL (7.4-10.4); Platelet Count 130 10^3/uL (130-400); Red Blood Cell Count 3.08 10^6/uL (4.70-6.10); Red Cell Dist. Width 13.4 % (11.5-14.5); White Blood Cell Count 5.1 10^3/uL (4.8-10.8)
[2024-08-18 07:30] LABS: Folate 19.6 ng/ml (2.76-20); Vitamin B12 > 1000 pg/ml (239-931)
--- NOTE | 2024-08-18 09:35 | W.PN.HOSP.TC ---
Today's Communication/Plan
-
see A/P
Assessment / Plan
Assessment / Plan
HPI: 84 yo M with PMH significant for CKD V, DDD and ambulatory dysfunction, who presented to ED for evaluation of 'abnormal labs'. Patient has outpatient labs drawn in the morning at [facility]. They received a call from the lab that his
values were abnormal and patient was sent to the ED for evaluation. Patient has no specific complaints or concerns.
Patient states that he has long-standing kidney disease - initially followed in [place]. He relocated to [place] > 1 year ago and has been a resident at [facility].
Patient was initially evaluated by Nephrology in 2023 (Dr. Tinajero) but has since lost to follow-up.
He was seen by Vascular Surgery for HD access and had LUE AVF placed in 12/2023 (failed) and LUE AVG placed in 06/2024.
A/P:
# CKD V
His labs do not appear to be significantly changed from prior values here.
LUE AVG is ready for use if needed.
Defer HD needs to renal
# Periods of arrhythmia/2nd degree AV block.
Patient asymptomatic
EKG showed first degree AV block
Cardiology consulted
# Anemia of CKD, Stable.
Hgb is at / near known baseline.
Continue current supplements (iron, B12, etc).
Follow for changes.
# ASCVD / PAD
Cool L foot with decreased pulses - though not acutely changed per patient.
BL arterial US with MAYTE ordered, follow up results
Continue current CV med regimen including Plavix, statin, etc.
# Chronic Back Pain
# DDD
# Chronic Ambulatory Dysfunction
Patient states that he is 'mostly bed-bound' though he is able to ambulate with a walker.
PT / OT evaluations.
Continue current pain control regimen.
DVT Prophylaxis: Subcut Heparin
Code Status: Full
DW RN
Anticipated Discharge: 24 - 48 hours
Subjective/Interval History
-
Date of Service: August 18, 2024
Objective Data
-
Labs:
Laboratory Results
08/18/24
05:48
WBC 5.1
Hgb 10.1 L
Hct 31.0 L
Plt Count 130 D
Sodium 141
Potassium 5.3 H
Chloride 111 H
Carbon Dioxide 20 L
BUN 111 H*
Creatinine 4.1 H*
Glucose 92
Calcium 9.4
Vital Signs:
Vital Signs
Temp Pulse Resp BP Pulse Ox
36.6 C 72 16 127/50 100
08/18/24 08:16 08/18/24 05:15 08/18/24 08:16 08/18/24 05:00 08/18/24 08:16
I&O
08/17/24 08/18/24 08/19/24
06:59 06:59 06:59
Intake Total 240 / 240
Output Total 350 / 350
Balance -110 / -110
Review of Systems
-
All other systems: Reviewed and negative
Physical Exam
-
General: Well Developed, Well Nourished, No Apparent Distress, Comfortable and Conversant; Negative Respiratory Distress
HEENT: Normocephalic, Atraumatic, Nose Appears Normal and Ears Appear Normal; Negative Oxygen
Respiratory: Clear to Auscultation and Non Labored Respirations; Negative Accessory Resp Muscle Use
Cardiac: Regular Rhythm and S1/S2
GI: Soft, Nontender, Nondistended and Normal Bowel Sounds
Skin: Warm and Dry
Neuro: Awake, Alert, Oriented and AO x 3
Psych: Calm and Intact Judgement/Insight
Data Reviewed
-
Labs: Labs Reviewed by me and Discussed with Patient
[2024-08-18] MEDS: FLOMAX 0.4 MG PO (09:37)
[2024-08-18] MEDS: FEOSOL 325 MG PO (09:37)
[2024-08-18] MEDS: RENVELA 800 MG PO ×3 (09:37→19:45)
[2024-08-18] MEDS: PLAVIX 75 MG PO (09:38)
[2024-08-18] MEDS: SODIUM BICARBONATE 975 MG PO ×2 (09:38→21:35)
[2024-08-18] MEDS: LIPITOR 10 MG PO (09:38)
[2024-08-18] MEDS: VITAMIN C 500 MG PO (09:40)
[2024-08-18] MEDS: VITAMIN B-12 1000 MCG PO (09:40)
[2024-08-18] MEDS: HEPARIN 5000 UNITS SC ×2 (09:40→19:45)
[2024-08-18] MEDS: TOPROL XL 12.5 MG PO (09:40)
[2024-08-18] MEDS: COLACE 200 MG PO (09:40)
[2024-08-18] MEDS: FLUSH (NSS) 1 FLUSH IV (09:41)
--- NOTE | 2024-08-18 11:23 | PTCARENOTE ---
Patient admitted this AM from the ED with CKD, oriented to the room and plan of care. Admission assessment completed, patient sent for u/s of lower extremities as ordered. Patient voided using urinal while sitting at the side of the bed 300 ml but
felt he was not able to completely empty his bladder. Bladder scanned for PVR of 440ml, patient would like to try to void again, requires assist of two to stand with the rolling walker, very unsteady on his feet. Call loyd in reach, eating remainder
of his breakfast now.
--- NOTE | 2024-08-18 11:36 | CON.CAR ---
Consultation
Consultation Request
Date/Time Consultation Requested: 08/18/2024
Date/Time Consultation Performed: 08/18/2024
Requesting Provider: Dr. Guajardo
Performing Provider: Dr. Brownlee
Reason for Consultation: Heart block
Medical History
-
Chief Complaint: Fatigue
History of Present Illness:
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 Patient denies any
current cardiac symptoms; states that he is felt fatigued at home. Cardiology consulted for concern for heart block.
Past Medical History
Past Medical History: COPD, HTN and Renal Failure
Past Surgical History: Other (Back surgery, AV fistula)
Social History
Tobacco: Former Smoker
Alcohol: None
Personal: Single
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
Family History
Family History: Reviewed & Not Pertinent
Allergies / Home Medications
Allergy/AdvReac Type Severity Reaction Status Date / Time
No Known Allergies Allergy Verified 08/17/24 18:58
�Medication �Instructions �Recorded �Confirmed �Type
acetaminophen 325 mg tablet 650 mg PO Q6HPRN PRN mild pain 11/16/23 08/17/24 History
bisacodyl 10 mg rectal suppository 10 mg IA DAILYPRN PRN if mom is 11/16/23 08/17/24 History
(Dulcolax (bisacodyl)) ineffective
clopidogrel 75 mg tablet 75 mg PO DAILY Blood Clot 11/16/23 08/17/24 History
Prevention/Tx
cyanocobalamin (vitamin B-12) 1,000 mcg PO DAILY Supplement 11/16/23 08/17/24 History
1,000 mcg tablet (Vitamin B-12)
magnesium hydroxide 400 mg/5 mL 30 ml PO DAILYPRN PRN constipation 11/16/23 08/17/24 History
oral suspension (Milk of Magnesia)
simvastatin 20 mg tablet 20 mg PO DAILY High Cholesterol 11/16/23 08/17/24 History
ascorbic acid (vitamin C) 500 mg 500 mg PO DAILY Supplement 12/17/23 08/17/24 History
tablet (Vitamin C)
tamsulosin 0.4 mg capsule 0.4 mg PO DAILY Urinary Issue 12/20/23 08/17/24 History
furosemide 20 mg tablet 20 mg PO DAILY Fluid 03/07/24 08/17/24 History
Retention/Swelling
sodium zirconium cyclosilicate 10 10 g PO Q48H high potassium level 03/07/24 08/17/24 History
gram oral powder packet (Lokelma)
sodium bicarbonate 325 mg tablet 975 mg PO TID Supplement 03/08/24 08/17/24 History
ferrous gluconate 324 mg (38 mg 324 mg PO DAILY Supplement 05/17/24 08/17/24 History
iron) tablet
phenol-phenolate sodium mucosal 2 spray mucous membrane Q4HPRN PRN 05/17/24 08/17/24 History
aerosol spray (Sore Throat [place]) sore throat
docusate sodium 100 mg capsule 200 mg PO DAILY 06/15/24 08/17/24 History
sevelamer HCl 800 mg tablet 800 mg PO AC 06/15/24 08/17/24 History
oxycodone 5 mg tablet 5 mg PO Q6HPRN PRN moderate pain 06/19/24 08/17/24 Rx
#5 tabs
metoprolol succinate 25 mg capsule 12.5 mg PO DAILY 08/17/24 08/17/24 History
sprinkle, ext. release 24 hr
Review of Systems
-
History Source: Patient
All other systems: Negative unless noted
Musculoskeletal: Joint Pain
Physical Exam
Vital Signs
Temp Pulse Resp BP Pulse Ox
97.9 F 72 16 127/50 100
08/18/24 08:16 08/18/24 05:15 08/18/24 08:16 08/18/24 05:00 08/18/24 08:16
Lab Results
08/18/24 05:48
08/18/24 05:48
Physical Exam
General: No Apparent Distress and Comfortable
HEENT: Anicteric
Respiratory: Clear
Cardiac: S1/S2 and Murmur (Soft 2/6 systolic murmur)
Breast: N/A
GI: Soft and Non Tender
Rectal: Deferred by Provider
Musculoskeletal: No Cyanosis and No Edema
Skin: Warm and Dry
Neuro: AO x 3
Psych: Calm
Impression / Plan
-
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 Patient denies any
current cardiac symptoms; states that he is felt fatigued at home. Cardiology consulted for concern for heart block.
Mobitz 1 heart block:
-Telemetry strips reviewed with EP Cardiology; the patient has Mobitz 1 heart block with no evidence of advanced heart block.
-Benign.
Worsening CKD:
-Recommendations as per Nephrology; impending dialysis.
Hypertension:
-Blood pressure controlled.
-Continue current dose of metoprolol succinate.
PAD:
-Continue clopidogrel and atorvastatin.
Hyperlipidemia:
-Continue atorvastatin.
Mild aortic regurgitation:
-Stable.
-Primary Laboratory Sample Carrier will continue to monitor over time.
Disposition: Relatively stable from a cardiac standpoint. Can follow-up with Cardiology as an outpatient.
Data Reviewed
-
Medical Tests (Nuc Med, Echo etc): Report Reviewed by me (Transthoracic echocardiogram (12/27/2023): LVEF 65-70%; mild aortic regurgitation.)
Labs: Labs Reviewed by me, Discussed with Physician and Discussed with Patient
Old Records: Reviewed (Cardiology office visit 06/21/2024)
--- NOTE | 2024-08-18 12:28 | W.CON.NEPH ---
Consultation
-
Date/Time Consultation Requested: August 18, 2024 8 AM
Date/Time Consultation Performed: August 18, 2024 11:40 AM
Requesting Provider: Dr. Johnson
Performing Provider: Fernando Farfan
Reason for Consultation: Evaluation for ESRD/dialysis
Medical History
-
Chief Complaint: Assess for ESRD
History of Present Illness:
Patient is an 84y M with PMH significant for CKD V, COPD/emphysema, history CHF with reportedly LVEF 15% though 65-70% in December 2023, DDD and ambulatory dysfunction who presents to ED for evaluation of 'abnormal labs'. Patient has outpatient labs
drawn this AM at [facility]. They received a call from the lab that his values were abnormal and patient was sent to the ED for evaluation. Patient has no specific complaints or concerns.
Patient states that he has long-standing kidney disease - initially followed in [place]. He relocated to [place] > 1 year ago and has been a resident at [facility]. He has been awaiting initiation of dialysis.
Patient was initially evaluated by Nephrology in 2023 (Dr. Tinajero) then Dr. King in February 2024 but was since lost to follow-up.
He was seen by Vascular Surgery for HD access and had LUE AVF placed in 12/2023 (failed) and LUE AVG placed in 06/2024.
He has developed significant azotemia and was directed to the [facility] ER. He does report fatigue, anorexia. BUN and creatinine are 111/4.1 mg/DL respectively.
Past Medical History
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
Chronic hyperkalemia
Chronic metabolic acidosis
Hypertension
Anemia of CKD
BPH
COPD
Former smoker
CHF with recovered EF
DDD
Ambulatory dysfunction
Chronic pain
PAD
LUE AVF (12/2023)
LUE Fistulogram x 2 (with stent x 1)
LUE AVG (06/19/24)
Back surgery x 3
Social History
Relocated from [place] to [facility] in early 2023 with known CKD 5.
Tobacco: Former Smoker ( Quit smoking February 2024)
Alcohol: None
Drug: None
Personal: ( in 2022)
Living: Care Home
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
Family History
father at 90. Mother at 88 Alzheimer's dementia. Brother at 84 with CKD 4. Sister with CKD.
Allergies / Home Medications
Allergy/AdvReac Type Severity Reaction Status Date / Time
No Known Allergies Allergy Verified 08/17/24 18:58
�Medication �Instructions �Recorded �Confirmed �Type
acetaminophen 325 mg tablet 650 mg PO Q6HPRN PRN mild pain 11/16/23 08/17/24 History
bisacodyl 10 mg rectal suppository 10 mg TX DAILYPRN PRN if mom is 11/16/23 08/17/24 History
(Dulcolax (bisacodyl)) ineffective
clopidogrel 75 mg tablet 75 mg PO DAILY Blood Clot 11/16/23 08/17/24 History
Prevention/Tx
cyanocobalamin (vitamin B-12) 1,000 mcg PO DAILY Supplement 11/16/23 08/17/24 History
1,000 mcg tablet (Vitamin B-12)
magnesium hydroxide 400 mg/5 mL 30 ml PO DAILYPRN PRN constipation 11/16/23 08/17/24 History
oral suspension (Milk of Magnesia)
simvastatin 20 mg tablet 20 mg PO DAILY High Cholesterol 11/16/23 08/17/24 History
ascorbic acid (vitamin C) 500 mg 500 mg PO DAILY Supplement 12/17/23 08/17/24 History
tablet (Vitamin C)
tamsulosin 0.4 mg capsule 0.4 mg PO DAILY Urinary Issue 12/20/23 08/17/24 History
furosemide 20 mg tablet 20 mg PO DAILY Fluid 03/07/24 08/17/24 History
Retention/Swelling
sodium zirconium cyclosilicate 10 10 g PO Q48H high potassium level 03/07/24 08/17/24 History
gram oral powder packet (Lokelma)
sodium bicarbonate 325 mg tablet 975 mg PO TID Supplement 03/08/24 08/17/24 History
ferrous gluconate 324 mg (38 mg 324 mg PO DAILY Supplement 05/17/24 08/17/24 History
iron) tablet
phenol-phenolate sodium mucosal 2 spray mucous membrane Q4HPRN PRN 05/17/24 08/17/24 History
aerosol spray (Sore Throat [place]) sore throat
docusate sodium 100 mg capsule 200 mg PO DAILY 06/15/24 08/17/24 History
sevelamer HCl 800 mg tablet 800 mg PO AC 06/15/24 08/17/24 History
oxycodone 5 mg tablet 5 mg PO Q6HPRN PRN moderate pain 06/19/24 08/17/24 Rx
#5 tabs
metoprolol succinate 25 mg capsule 12.5 mg PO DAILY 08/17/24 08/17/24 History
sprinkle, ext. release 24 hr
Review of Systems
-
Patient endorsed fatigue, anorexia (only 1 meal per day), gradual weight loss, lack of energy, all occurring in the setting of advanced CKD. He denied shortness of breath, orthopnea, peripheral edema. He does have BPH with occasional nocturia.
No recent heart failure symptoms.
History Source: Patient
All other systems: Negative unless noted
Physical Exam
Vital Signs
Vital Signs
Temp Pulse Resp BP Pulse Ox
97.7 F 72 16 127/50 100
08/18/24 11:51 08/18/24 05:15 08/18/24 11:51 08/18/24 05:00 08/18/24 11:51
Lab Results
WBC 5.1 10^3/uL (4.8-10.8) 08/18/24 05:48
RBC 3.08 10^6/uL (4.70-6.10) L 08/18/24 05:48
Hgb 10.1 g/dL (13.0-18.0) L 08/18/24 05:48
Hct 31.0 % (39.0-52.0) L 08/18/24 05:48
Plt Count 130 10^3/uL (130-400) D 08/18/24 05:48
Sodium 141 mmol/L (135-145) 08/18/24 05:48
Potassium 5.3 mmol/L (3.5-5.1) H 08/18/24 05:48
Chloride 111 mmol/L (98-107) H 08/18/24 05:48
Carbon Dioxide 20 mmol/L (22-30) L 08/18/24 05:48
BUN 111 mg/dl (9-20) H* 08/18/24 05:48
Creatinine 4.1 mg/dL (0.7-1.3) H* 08/18/24 05:48
eGFR 13.57 08/18/24 05:48
Glucose 92 mg/dl (70-99) 08/18/24 05:48
Calcium 9.4 mg/dl (8.4-10.2) 08/18/24 05:48
Albumin 3.7 g/dl (3.5-5.0) 08/17/24 19:05
Physical Exam
General: Cooperative, did not appear acutely ill
Eyes: Pupils equal, sclerae anicteric
ENT: No facial asymmetry, buccal mucosa moist
Neck: No thyroid fullness, trachea midline
Lymph: No cervical, supraclavicular, axillary adenopathy
CV: Audible heart tones, no obvious loud murmur, no pericardial friction rub
Lungs: Good aeration bilaterally, no wheezing or rhonchi, no basilar rales
Abdomen: Soft, nontender, no bruits, no suprapubic fullness
Extrem: No edema, DP and PTpulses, ere depressed
Neuro: Alert, oriented, no pronator drift, no tremors, minimal asterixis
Skin: Normal turgor, no rash on exposed areas
Psych: Did not appear depressed, not anxious, insight fair at best
Vascular Access: AVG ( Left upper arm with audible bruit and palpable thrill, left hand warm)
Data Reviewed
-
Ultrasound: Report Reviewed by me (Patent left upper extremity arteriovenous graft without flow-limiting stenosis.)
Medical Tests (Nuc Med, Echo etc): Report Reviewed by me (EKG report reviewed: SINUS RHYTHM WITH 1ST DEGREE A-V BLOCK SEPTAL INFARCT (CITED ON OR BEFORE 08-MAR-2024) ABNORMAL ECG WHEN COMPARED WITH ECG OF 17-MAY-2024 09:24, NO SIGNIFICANT CHANGE WAS
FOUND; Echocardiogram report reviewed CONCLUSIONS 1. Normal LV size and function with EF 65-70% 2. Mild LA)
Labs: Labs Reviewed by me
Old Records: Requested ( prison records requested) and Reviewed (Outpatient [facility] records reviewed)
Assessment/Plan
-
Assessment:
CKD 5 now ESRD (renal vascular disease as per old record)
Hyperkalemia
Metabolic acidosis
History heart failure with preserved EF
Weakness
Left upper arm AV graft appears functional
COPD/emphysema
BPH
Hypercholesterolemia
Plan:
Patient is in stage V CKD and has planned for hemodialysis. He does have subtle uremic symptoms and findings (anorexia, weight loss, fatigue, asterixis). He has a functioning AV graft in the left upper extremity.
We reviewed at length eventual need for dialysis and patient stated 'I was waiting to start.'
At this point, his CKD will more than likely worsen and with his marked azotemia, it would be best to initiate dialysis at this time. He resides at a nursing facility ([facility]) which can accommodate hemodialysis thrice weekly. It would be
best to assess whether his AV graft is functional while in hospital, which I believe it will be. Recent ultrasound without any significant concerns.
No need to continue loop diuretic, Lokelma, or sodium bicarbonate
Appropriate dietary restrictions to be ordered
Continue phosphate binders (sevelamer) with meals
Social work assessments to assist in arranging outpatient HD at [facility]
Hepatitis serologies now
Thank you for requesting this renal consultation. Please feel free to contact our service with any questions or concerns.
--- NOTE | 2024-08-18 13:17 | CM ---
Addendum entered by Michaela Mcintyre 08/18/24 15:58:
Faxed hep screen to [facility]. Received telephone call from [facility]. They just need his flow shwwts from his dialysis sessions and they can approved him for their outpatient dialysis Center. He can return to [facility] on Wednesday
after dialysis wiith [facility] Van providing transportation back. Medical work-up in progress. The discharge plan is to return to [facility] with outpatient dialysis at [facility] when medically stable.
Addendum entered by Michaela Mcintyre 08/18/24 15:21:
Faxed referral to [facility] to start the referral process. fax number is ([phone]). He will still need dialysis flow sheets, CXR, Hepatitis results. Referral will need to updated. Sent a referral to [facility] for him to
return. Medical work-up in progress. The discharge plan is to return to [facility] with outpatient dialysis at [facility] if approved for admission.
Original Note:
Reviewed chart. Met with Mr. Muller to review discharge plans. He states prior to admission he resides at [facility]. He states he has been there for a year. He states prior to admission he ambulates with a rolling walker. He
states he can do his own adls. He states the staff at the facility manages his mediations. He states he is planning on returning on returning to [facility] when medically stable for transfer. He will need to be set up with outpatient
dialysis. Will need to start dialysis here and send H&P, Nephrology consult and progress notes, Dialysis flow sheet, treatment , CXR and labs. The referral for outpatient dialysis need to go to [facility]. Awaiting labs, dialysis and CXr to
send the referral. Telephone call to [facility] Liaison to check on bed hold. He has a fifteen day bed hold. [facility] can provide transportation back to then on Wednesday they can provide transportation. He will need approval from
outpatient dialysis before he can return back to his facility. [facility] can take him back on Wednesday if medically stable and approved for outpatient dialysis. Medical work-up in progress. The discharge plan is to return to [facility]
Care Home when medically stable and approved for outpatient dialysis.
[2024-08-18 15:20] LABS: Hepatitis B Surface Antigen Negative (Negative)
--- NOTE | 2024-08-18 15:33 | PTCARENOTE ---
Patient to start HD this afternoon. Report called to [facility] on 1 acute, patient for transfer to [facility] after having CXR in the department.
[2024-08-18 15:38] LABS: Hepatitis B Core Ab, Total Negative (Negative); Hepatitis B Surface Antibody Negative; Hepatitis C Antibody Negative (Negative)
--- NOTE | 2024-08-18 16:39 | PTCARENOTE ---
Transferred to room 1146-1. VSS. NSR w/ 1st degree AV block, HR 60s. Updated on plan of care. Awaiting HD.
[2024-08-18] MEDS: HEPARIN 1000 UNITS IV (17:15)
[2024-08-18] MEDS: MANNITOL 25% 12.5 GRAMS IV ×2 (17:30→18:31)
--- NOTE | 2024-08-18 17:41 | W.PN.NEPH.HD ---
Assessment
-
pt seen during HD
vitals stable
AVG functions well
next HD tomorrow
Progress Note - Hemodialysis
-
Date of Service: August 18, 2024
Duration: 2 hours
Potassium Bath: 2
Calcium Bath: 2.5
Opti-Dialyzer: 160
Ultrafiltration: Other (0.5kg)
Blood Flow: 250
Dialysate Flow: 600
Heparin: yesx1
EPO: no
[2024-08-18] MEDS: SODIUM BICARBONATE PO (19:45)
[2024-08-19 03:06] VITALS: BP 112/52; BMI 21.6
[2024-08-19 06:38] LABS: Blood Urea Nitrogen 66 mg/dl (9-20); Calcium 8.8 mg/dl (8.4-10.2); Carbon Dioxide 26 mmol/L (22-30); Chloride 106 mmol/L (98-107); Estimated Creatinine Clearance 14 ml/min; Glucose 89 mg/dl (70-99); Magnesium 2.2 mg/dl (1.6-2.3); Sodium 138 mmol/L (135-145)
[2024-08-19 07:44] VITALS: BP 111/47
[2024-08-19] MEDS: FEOSOL 325 MG PO (08:01)
[2024-08-19] MEDS: RENVELA 800 MG PO ×3 (08:01→17:51)
[2024-08-19] MEDS: SODIUM BICARBONATE 975 MG PO ×2 (08:01→17:51)
[2024-08-19] MEDS: LIPITOR 10 MG PO (08:01)
[2024-08-19] MEDS: VITAMIN B-12 1000 MCG PO (08:03)
[2024-08-19] MEDS: PLAVIX 75 MG PO (08:03)
[2024-08-19] MEDS: TOPROL XL 12.5 MG PO (08:03)
[2024-08-19] MEDS: COLACE 200 MG PO (08:03)
[2024-08-19] MEDS: VITAMIN C 500 MG PO (08:04)
[2024-08-19] MEDS: HEPARIN 5000 UNITS SC ×2 (08:04→19:55)
[2024-08-19] MEDS: FLOMAX 0.4 MG PO (08:04)
--- NOTE | 2024-08-19 08:23 | W.PN.HOSP.TC ---
Today's Communication/Plan
-
continue current plan. Awaiting set up of outpatient HD.
Assessment / Plan
Assessment / Plan
HPI: 84 yo M with PMH significant for CKD V, DDD and ambulatory dysfunction, who presented to ED for evaluation of 'abnormal labs'. Patient has outpatient labs drawn in the morning at [facility]. They received a call from the lab that his
values were abnormal and patient was sent to the ED for evaluation. Patient has no specific complaints or concerns. Patient states that he has long-standing kidney disease - initially followed in [place]. He relocated to [place] > 1 year ago and has
been a resident at [facility]. Patient was initially evaluated by Nephrology in 2023 (Dr. Tinajero) but has since lost to follow-up. He was seen by Vascular Surgery for HD access and had LUE AVF placed in 12/2023 (failed) and LUE AVG placed in
06/2024.
A/P:
1. CKD V - now ESRD
LUE AVG is ready for use if needed.
Defer HD management to renal
Continue daily HD until renal states he is ready for discharge, and HD is set up as outpatient
2. Periods of arrhythmia/2nd degree AV block. - Patient asymptomatic
EKG showed first degree AV block
Cardiology consult states:
'Hypertension:
-Blood pressure controlled.
-Continue current dose of metoprolol succinate.
PAD:
-Continue clopidogrel and atorvastatin.
Hyperlipidemia:
-Continue atorvastatin.
Mild aortic regurgitation:
-Stable.
-Primary Metal Refiner will continue to monitor over time.
Disposition:
Relatively stable from a cardiac standpoint.
Can follow-up with Cardiology as an outpatient.'
3. Anemia of CKD, Stable.
Hgb is at / near known baseline.
Continue current supplements (iron, B12, etc).
Follow for changes.
4. ASCVD / PAD
Cool L foot with decreased pulses - though not acutely changed per patient.
BL arterial US with MAYTE ordered, follow up results
Continue current CV med regimen including Plavix, statin, etc.
See cardiology recs above
5. Other medical problems to note:
Chronic Back Pain
DDD
Chronic Ambulatory Dysfunction
Patient states that he is 'mostly bed-bound' though he is able to ambulate with a walker.
PT / OT evaluations.
Continue current pain control regimen.
DVT Prophylaxis: Subcut Heparin
Code Status: Full
DW RN
Anticipated Discharge: 24 - 48 hours
Subjective/Interval History
-
Date of Service: August 19, 2024
Feeling better, no new issues.
Objective Data
-
Labs:
Laboratory Results
08/19/24
05:54
Sodium 138
Potassium 4.0
Chloride 106
Carbon Dioxide 26
BUN 66 H
Creatinine 3.3 H
Glucose 89
Calcium 8.8
Vital Signs:
Vital Signs
Temp Pulse Resp BP Pulse Ox
97.5 F 71 17 111/47 98
08/19/24 07:44 08/19/24 08:03 08/19/24 07:44 08/19/24 08:03 08/19/24 07:44
I&O
08/18/24 08/19/24 08/20/24
06:59 06:59 07:59
Intake Total 240 / 240 240 / 240
Output Total 350 / 350 1525 / 1525
Balance -110 / -110 -1285 / -1285
Review of Systems
-
History Source: Patient
All other systems: Reviewed and negative
Physical Exam
-
General: Well Developed, Well Nourished, No Apparent Distress and Comfortable
HEENT: Normocephalic, Moist Mucous Membranes, Nose Appears Normal and Ears Appear Normal
Respiratory: Clear to Auscultation
Cardiac: Regular Rhythm and S1/S2
GI: Soft, Nontender and Nondistended
Musculoskeletal: No Clubbing, No Cyanosis and No Edema
Skin: Warm and Dry
Neuro: Awake, Alert, Oriented and AO x 3
Psych: Calm
Data Reviewed
-
Labs: Labs Reviewed by me
[2024-08-19] MEDS: HEPARIN 500 UNITS IV ×2 (08:50→09:50)
[2024-08-19] MEDS: MANNITOL 25% 12.5 GRAMS IV ×2 (09:00→10:04)
[2024-08-19 11:18] VITALS: BP 100/52
--- NOTE | 2024-08-19 11:54 | W.PN.NEPH.HD ---
Assessment
-
pt seen during HD
vitals stable
no UF , no vol overload and SBP soft
AVG function fine
next HD on Wednesday
Progress Note - Hemodialysis
-
Date of Service: August 19, 2024
Duration: 45 minutes and 2 hours
Potassium Bath: 3
Calcium Bath: 2.5
Opti-Dialyzer: 160
Ultrafiltration: Other (0)
Blood Flow: 300
Dialysate Flow: 600
Heparin: yesx2
EPO: no
[2024-08-19 15:18] VITALS: BP 110/52
[2024-08-19 19:00] VITALS: BP 152/50
[2024-08-19 23:00] VITALS: BP 118/52
[2024-08-20 04:00] VITALS: BP 114/62
[2024-08-20 05:04] VITALS: BMI 21.7
[2024-08-20 07:09] LABS: Hemoglobin 9.1 g/dL (13.0-18.0); Mean Corp Hgb Conc. 32.5 g/dL (33.0-37.0); Mean Corpuscular Hgb 31.8 pg (27.0-31.0); Mean Corpuscular Volume 97.9 fL (80.0-94.0); Mean Platelet Volume 10.6 fL (7.4-10.4); Platelet Count 131 10^3/uL (130-400); Red Blood Cell Count 2.86 10^6/uL (4.70-6.10); Red Cell Dist. Width 13.2 % (11.5-14.5); White Blood Cell Count 4.3 10^3/uL (4.8-10.8)
[2024-08-20 07:36] VITALS: BP 133/52
[2024-08-20 07:37] LABS: Blood Urea Nitrogen 43 mg/dl (9-20); Calcium 8.7 mg/dl (8.4-10.2); Carbon Dioxide 33 mmol/L (22-30); Chloride 99 mmol/L (98-107); Estimated Creatinine Clearance 16 ml/min; Glucose 86 mg/dl (70-99); Potassium 4.3 mmol/L (3.5-5.1); Sodium 137 mmol/L (135-145); eGFR 19.74
[2024-08-20] MEDS: HEPARIN 5000 UNITS SC ×2 (09:00→19:19)
[2024-08-20] MEDS: TOPROL XL 12.5 MG PO (09:00)
[2024-08-20] MEDS: LIPITOR 10 MG PO (09:01)
[2024-08-20] MEDS: VITAMIN C 500 MG PO (09:01)
[2024-08-20] MEDS: FEOSOL 325 MG PO (09:01)
[2024-08-20] MEDS: COLACE 200 MG PO (09:01)
[2024-08-20] MEDS: RENVELA 800 MG PO ×3 (09:01→18:12)
[2024-08-20] MEDS: FLOMAX 0.4 MG PO (09:01)
[2024-08-20] MEDS: VITAMIN B-12 1000 MCG PO (09:01)
[2024-08-20] MEDS: PLAVIX 75 MG PO (09:01)
--- NOTE | 2024-08-20 09:10 | W.PN.HOSP.TC ---
Today's Communication/Plan
-
Doing well. May be discharged tomorrow if outpatient HD can be set up.
Assessment / Plan
Assessment / Plan
84 yo M with PMH significant for:
CKD V,
DDD
ambulatory dysfunction
presented to ED for evaluation of 'abnormal labs'. Patient has outpatient labs drawn in the morning at [facility]. They received a call from the lab that his values were abnormal and patient was sent to the ED for evaluation. Patient has no
specific complaints or concerns. Patient states that he has long-standing kidney disease - initially followed in [place]. He relocated to [place] > 1 year ago and has been a resident at [facility]. Patient was initially evaluated by Nephrology in
2023 (Dr. Tinajero) but has since lost to follow-up. He was seen by Vascular Surgery for HD access and had LUE AVF placed in 12/2023 (failed) and LUE AVG placed in 06/2024.
A/P:
1. CKD V - now ESRD BUN/Creat improving, today 43/3.0
LUE AVG is ready for use if needed.
Continue daily HD until renal states he is ready for discharge, (likely tomorrow) and HD is set up as outpatient
2. Periods of arrhythmia/2nd degree AV block. - Patient asymptomatic
EKG showed first degree AV block
Cardiology consult states:
'Hypertension:
-Blood pressure controlled.
-Continue current dose of metoprolol succinate.
PAD:
-Continue clopidogrel and atorvastatin.
Hyperlipidemia:
-Continue atorvastatin.
Mild aortic regurgitation:
-Stable.
-Primary Cab Station Attendant will continue to monitor over time.
Disposition:
Relatively stable from a cardiac standpoint.
Can follow-up with Cardiology as an outpatient.'
3. Anemia of CKD, Stable. Will need outpt follow up, H/H 10.1/31.0 --> 9.1/28.0
Hgb is at / near known baseline.
Continue current supplements (iron, B12, etc).
Follow for changes.
4. ASCVD / PAD
Cool L foot with decreased pulses - though not acutely changed per patient.
BL arterial US with MAYTE ordered, follow up results
Continue current CV med regimen including Plavix, statin, etc.
See cardiology recs above
5. Other medical problems to note:
Chronic Back Pain
DDD
Chronic Ambulatory Dysfunction
Patient states that he is 'mostly bed-bound' though he is able to ambulate with a walker.
PT / OT evaluations.
Continue current pain control regimen.
DVT Prophylaxis: Subcut Heparin
Code Status: Full
DW RN
Anticipated Discharge: 24 - 48 hours
Subjective/Interval History
-
Date of Service: August 20, 2024
Doing well. Has good appetite. Tolerated HD without difficulties.
Objective Data
-
Labs:
Laboratory Results
08/20/24
06:12
WBC 4.3 L
Hgb 9.1 L
Hct 28.0 L
Plt Count 131
Sodium 137
Potassium 4.3
Chloride 99
Carbon Dioxide 33 H
BUN 43 H
Creatinine 3.0 H
Glucose 86
Calcium 8.7
Vital Signs:
Vital Signs
Temp Pulse Resp BP Pulse Ox
97.3 F 70 17 133/52 98
08/20/24 07:36 08/20/24 07:36 08/20/24 07:36 08/20/24 07:36 08/20/24 07:36
I&O
08/19/24 08/20/24 08/21/24
05:59 06:59 06:59
Intake Total
Output Total
Balance
Review of Systems
-
History Source: Patient
All other systems: Reviewed and negative
Physical Exam
-
General: Well Developed, Well Nourished, No Apparent Distress and Comfortable
HEENT: Normocephalic, Atraumatic, Moist Mucous Membranes, Nose Appears Normal and Ears Appear Normal
Respiratory: Clear to Auscultation
Cardiac: Regular Rhythm and S1/S2
GI: Soft, Nontender and Nondistended
Musculoskeletal: No Clubbing, No Cyanosis and No Edema
Skin: Warm and Dry
Neuro: Awake, Alert, Oriented and AO x 3
Psych: Calm
Data Reviewed
-
Labs: Labs Reviewed by me
--- NOTE | 2024-08-20 11:15 | W.PN.NEPH.PH ---
Today's Communication / Plan
-
HD tomorrow
Assessment/Plan
-
Assessment:
CKD 5 now ESRD (renal vascular disease as per old record)
Hyperkalemia
Metabolic acidosis
History heart failure with preserved EF
Weakness
Left upper arm AV graft appears functional
COPD/emphysema
BPH
Hypercholesterolemia
Plan:
deemed ESRD now
tolerated HD x2
next HD tomorrow-MWF schedule at [facility]
AVG functions well
-
-
Date of Service: August 20, 2024
CC / HPI / ROS
-
Chief Complaint:
CKD/ESRD
History of Present Illness:
started HD on 08/18, tolerated 2 HD s so far
no fever, BP stable
Review of Systems:
no cp or sob
feels well
Labs
-
Labs:
WBC 4.3 10^3/uL (4.8-10.8) L 08/20/24 06:12
RBC 2.86 10^6/uL (4.70-6.10) L 08/20/24 06:12
Hgb 9.1 g/dL (13.0-18.0) L 08/20/24 06:12
Hct 28.0 % (39.0-52.0) L 08/20/24 06:12
Plt Count 131 10^3/uL (130-400) 08/20/24 06:12
Sodium 137 mmol/L (135-145) 08/20/24 06:12
Potassium 4.3 mmol/L (3.5-5.1) 08/20/24 06:12
Chloride 99 mmol/L (98-107) 08/20/24 06:12
Carbon Dioxide 33 mmol/L (22-30) H 08/20/24 06:12
BUN 43 mg/dl (9-20) H 08/20/24 06:12
Creatinine 3.0 mg/dL (0.7-1.3) H 08/20/24 06:12
eGFR 19.74 08/20/24 06:12
Glucose 86 mg/dl (70-99) 08/20/24 06:12
Calcium 8.7 mg/dl (8.4-10.2) 08/20/24 06:12
Albumin 3.7 g/dl (3.5-5.0) 08/17/24 19:05
Physical Exam
-
Vital Signs:
Vital Signs
Temp Pulse Resp BP Pulse Ox
97.3 F 70 17 133/52 98
08/20/24 07:36 08/20/24 07:36 08/20/24 07:36 08/20/24 07:36 08/20/24 07:36
Cardiovascular:: Regular rate and rhythm
Respiratory:: Bilateral: CTA
Lung Excursion:: Normal
Abdomen:: Nontender and Soft
Extremity Edema:: None: Bilateral:
Rosenberg Catheter: No
[2024-08-20 11:25] VITALS: BP 128/56
[2024-08-20 15:25] VITALS: BP 136/52
[2024-08-20 19:00] VITALS: BP 129/49
[2024-08-20 23:00] VITALS: BP 137/56
[2024-08-21 03:00] VITALS: BP 135/58
[2024-08-21 03:28] VITALS: BMI 21.8
[2024-08-21 07:34] LABS: Hematocrit 30.2 % (39.0-52.0); Mean Corp Hgb Conc. 33.1 g/dL (33.0-37.0); Mean Corpuscular Hgb 32.5 pg (27.0-31.0); Mean Corpuscular Volume 98.1 fL (80.0-94.0); Mean Platelet Volume 10.6 fL (7.4-10.4); Platelet Count 137 10^3/uL (130-400); Red Blood Cell Count 3.08 10^6/uL (4.70-6.10); Red Cell Dist. Width 13.2 % (11.5-14.5)
[2024-08-21 08:09] LABS: Blood Urea Nitrogen 60 mg/dl (9-20); Carbon Dioxide 27 mmol/L (22-30); Chloride 100 mmol/L (98-107); Estimated Creatinine Clearance 13 ml/min; Glucose 154 mg/dl (70-99); Potassium 4.3 mmol/L (3.5-5.1); Sodium 138 mmol/L (135-145); eGFR 15.34
[2024-08-21 08:15] VITALS: BP 113/48
[2024-08-21] MEDS: HEPARIN 5000 UNITS SC (08:15)
[2024-08-21] MEDS: TOPROL XL PO (08:15)
[2024-08-21] MEDS: COLACE PO (08:16)
[2024-08-21] MEDS: VITAMIN B-12 1000 MCG PO (08:16)
[2024-08-21] MEDS: LIPITOR 10 MG PO (08:16)
[2024-08-21] MEDS: FEOSOL 325 MG PO (08:16)
[2024-08-21] MEDS: RENVELA PO (08:16)
[2024-08-21] MEDS: FLOMAX 0.4 MG PO (08:16)
[2024-08-21] MEDS: VITAMIN C 500 MG PO (08:16)
[2024-08-21] MEDS: PLAVIX 75 MG PO (08:17)
[2024-08-21] MEDS: RETACRIT 6000 UNITS IV (08:37)
[2024-08-21] MEDS: HEPARIN 500 UNITS IV (08:37)
--- NOTE | 2024-08-21 08:57 | CM ---
Addendum entered by Ofelia Nieves 08/21/24 12:56:
Patient to return to SNF today. CM spoke with patient sister and will email IMM at [email or web address]. Please call report to [phone]/fax [phone]. CM completed med transportation forms faxed to floor. CM will continue to follow for
discharge planning needs.
Plan; return to snf
Addendum entered by Ofelia Nieves 08/21/24 08:59:
Patient was OBS/HUMPHREY but changed to inp status today. CM will update patient.
Original Note:
Patient seen at bedside on HD. HD nurse to send flow sheets to SNF[facility],fax number is ([phone]). Patient for possible transfer pending physician assessment. CM will continue to follow for discharge planning needs.
Plan; transfer to SNF pending physician assessment.
[2024-08-21] MEDS: TYLENOL 650 MG PO (10:01)
--- NOTE | 2024-08-21 10:59 | W.PN.NEPH.HD ---
Assessment
-
Seen on HD. no complaints. VSS, access ok.
for dc
Progress Note - Hemodialysis
-
Date of Service: August 21, 2024
Duration: 30 minutes and 3 hours
Potassium Bath: 3
Calcium Bath: 2.5
Opti-Dialyzer: 160
Ultrafiltration: Other (0.5)
Blood Flow: 400
Dialysate Flow: 600
Heparin: 500x2
EPO: 6000 units
[2024-08-21 11:24] VITALS: BP 124/57
--- NOTE | 2024-08-21 11:31 | W.PN.HOSP.TC ---
Today's Communication/Plan
-
dc back to SNF after HD
Assessment / Plan
Assessment / Plan
84 yo M with PMH significant for:
CKD V,
DDD
ambulatory dysfunction
presented to ED for evaluation of 'abnormal labs'. Patient has outpatient labs drawn in the morning at [facility]. They received a call from the lab that his values were abnormal and patient was sent to the ED for evaluation. Patient has no
specific complaints or concerns. Patient states that he has long-standing kidney disease - initially followed in [place]. He relocated to [place] > 1 year ago and has been a resident at [facility]. Patient was initially evaluated by Nephrology in
2023 (Dr. Tinajero) but has since lost to follow-up. He was seen by Vascular Surgery for HD access and had LUE AVF placed in 12/2023 (failed) and LUE AVG placed in 06/2024.
A/P:
1. CKD V - now ESRD BUN/Creat improving, today 43/3.0
LUE AVG is ready for use if needed. DC back to [facility] for // schedule.
2. Periods of arrhythmia/2nd degree AV block. - Patient asymptomatic
EKG showed first degree AV block
Cardiology consult states:
Essential Hypertension:
-Blood pressure controlled.
-Continue current dose of metoprolol succinate.
PAD:
-Continue clopidogrel and atorvastatin.
Hyperlipidemia:
-Continue atorvastatin.
Mild aortic regurgitation:
-Stable.
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
Disposition:
Relatively stable from a cardiac standpoint.
Can follow-up with Cardiology as an outpatient.'
3. Anemia of CKD, Stable. Will need outpt follow up, H/H 10.1/31.0 --> 9.1/28.0
Hgb is at / near known baseline.
Continue current supplements (iron, B12, etc).
Follow for changes.
4. ASCVD / PAD
Cool L foot with decreased pulses - though not acutely changed per patient.
BL arterial US with MAYTE: LLE: mild arterial insufficiency, and RLE normal
Continue current CV med regimen including Plavix, statin, etc.
OP Vascular f/u
5. Other medical problems to note:
Chronic Back Pain
DDD
Chronic Ambulatory Dysfunction
Patient states that he is 'mostly bed-bound' though he is able to ambulate with a walker.
Continue current pain control regimen.
DVT Prophylaxis: SC Heparin
Code Status: Full
More than 30 minutes spent in discharge including
Final examination of the patient
Summarizing hospital stay
Instructions for continuing care to all relevant caregivers
Preparation of discharge records, prescriptions, and referral forms
Total time spent (in minutes):41
Anticipated Discharge: Today
Subjective/Interval History
-
Date of Service: August 21, 2024
resting comfortably, no complaints (seen on HD)
Objective Data
-
Labs:
Laboratory Results
08/21/24
07:05
WBC 4.0 L
Hgb 10.0 L
Hct 30.2 L
Plt Count 137
Sodium 138
Potassium 4.3
Chloride 100
Carbon Dioxide 27
BUN 60 H
Creatinine 3.7 H
Glucose 154 H
Calcium 9.0
Vital Signs:
Vital Signs
Temp Pulse Resp BP Pulse Ox
98.1 F 66 18 124/57 100
08/21/24 11:24 08/21/24 11:24 08/21/24 11:24 08/21/24 11:08/21/24 08:15
I&O
08/20/24 08/21/24 08/22/24
06:59 06:59 06:59
Intake Total 120 / 120
Output Total 1000 / 1000
Balance -880 / -880
Physical Exam
-
General: No Apparent Distress
HEENT: Normocephalic and Atraumatic
Respiratory: Negative Wheezes
Cardiac: Regular Rhythm and S1/S2
GI: Soft
Genito-urinary: No Costovertebral Tender
Neuro: AO x 3
Hematologic / Lymphatic: No Lymphadenopathy
Psych: Calm
Data Reviewed
-
Total Time Spent with Patient (in minutes): 41
Labs: Labs Reviewed by me
--- NOTE | 2024-08-21 11:40 | W.DS.TRANS ---
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
-
Discharge Instructions:
Sleep Apnea Risk Intermediate
Discharge Diagnosis/Procedures CKD stage 5 now progressed to ESRD with
hyperkalemia and metabolic acidosis
Diet 2 Gram Sodium,Restrict fluids to 48 oz
Additional Diets 2 gram potassium restriction
Activity As tolerated
Bathing Restrictions None
Other Services PT,OT
Instructions:
Stand-Alone Forms:
Changes to Home Medications: Yes
Discharge Medications:
DC Medications w/original date entered in [facility]
acetaminophen 325 mg tablet 650 mg PO Q6HPRN PRN mild pain 11/16/23
bisacodyl 10 mg rectal suppository (Dulcolax (bisacodyl)) 10 mg IA DAILYPRN PRN if mom is ineffective 11/16/23
clopidogrel 75 mg tablet 75 mg PO DAILY Blood Clot Prevention/Tx 11/16/23
cyanocobalamin (vitamin B-12) 1,000 mcg tablet (Vitamin B-12) 1,000 mcg PO DAILY Supplement 11/16/23
magnesium hydroxide 400 mg/5 mL oral suspension (Milk of Magnesia) 30 ml PO DAILYPRN PRN constipation 11/16/23
simvastatin 20 mg tablet 20 mg PO DAILY High Cholesterol 11/16/23
ascorbic acid (vitamin C) 500 mg tablet (Vitamin C) 500 mg PO DAILY Supplement 12/17/23
tamsulosin 0.4 mg capsule 0.4 mg PO DAILY Urinary Issue 12/20/23
ferrous gluconate 324 mg (38 mg iron) tablet 324 mg PO DAILY Supplement 05/17/24
phenol-phenolate sodium mucosal aerosol spray (Sore Throat [place]) 2 spray mucous membrane Q4HPRN PRN sore throat 05/17/24
docusate sodium 100 mg capsule 200 mg PO DAILY 06/15/24
sevelamer HCl 800 mg tablet 800 mg PO AC 06/15/24
metoprolol succinate 25 mg capsule sprinkle, ext. release 24 hr 12.5 mg PO DAILY 08/17/24
oxycodone 5 mg tablet 5 mg PO Q6HPRN PRN moderate pain #6 tabs 08/21/24
Home Medication Changes
stop loop diuretic, Lokelma, or sodium bicarbonate
Pending Results: No
Total time spent discharging patient (in min): 41
[2024-08-21] MEDS: RENVELA 800 MG PO (11:51)
[2024-08-21] MEDS: PREVNAR 20 0.5 ML IM (12:32)
[2024-08-21 16:00] VITALS: BP 118/52
== END 2024-08-21 17:00 | DRG 682 ==
LOC: 1 ACUTE 08:26
PROVIDERS: Emergency Medicine; Internal Medicine; ADMITTING PHYSICIAN Hospitalist; ATTENDING PHYSICIAN Internal Medicine; EMERGENCY PHYSICIAN Student in an Organized Health Care Education/Training Program; FAMILY PHYSICIAN Internal Medicine Interventional Cardiology; OTHER PHYSICIAN Internal Medicine; OTHER PHYSICIAN Specialist
PROC: 5A1D70Z Performance of Urinary Filtration, Intermittent, Less than 6 Hours Per Day (ICD-10-PCS; 2024-08-18)
DX: I12.0 Hypertensive chronic kidney disease with stage 5 chronic kidney disease or end stage renal disease (principal); N18.6 End stage renal disease; E87.22 Chronic metabolic acidosis; I25.10 Atherosclerotic heart disease of native coronary artery without angina pectoris; N40.0 Benign prostatic hyperplasia without lower urinary tract symptoms; D63.1 Anemia in chronic kidney disease; E78.00 Pure hypercholesterolemia, unspecified; E87.5 Hyperkalemia; G89.29 Other chronic pain; I44.1 Atrioventricular block, second degree; J43.9 Emphysema, unspecified; J44.9 Chronic obstructive pulmonary disease, unspecified; Z87.891 Personal history of nicotine dependence; Z99.2 Dependence on renal dialysis
CPT/HCPCS: 71046; 80048; 80053; 82607; 82746; 83540; 83550; 83735; 85025; 85027; 86704; 86706; 86803; 87070; 87340; 90677; 93005; 93922; 93925; 97163; 97167; 99285; G0009; G0257; P9047; Q5106

== ENCOUNTER 2024-09-06 12:00 | Emergency (ER) | payer MEDICARE, OTHER, SELFPAY ==
[2024-09-06 12:00] VITALS: BP 134/56; BMI 23.9
[2024-09-06 12:01] VITALS: BP 122/42
[2024-09-06 12:35] LABS: % Basophils 0.7 % (0-2); % Eosinophils 0.6 % (0-6); % Immature Granulocytes 0.4 % (0-0.5); % Lymphocytes 7.2 % (20.5-51.1); % Monocytes 5.8 % (1.7-9.3); % Neutrophils 85.3 % (42.2-75.2); Absolute Basophils 0.1 10^3/uL (0-0.2); Absolute Lymphocytes 0.5 10^3/uL (1.2-3.4); Absolute Monocytes 0.4 10^3/uL (0.1-0.6); Absolute Neutrophils 6.1 10^3/uL (1.4-6.5); Hematocrit 29.3 % (39.0-52.0); Hemoglobin 9.8 g/dL (13.0-18.0); Mean Corp Hgb Conc. 33.4 g/dL (33.0-37.0); Mean Corpuscular Hgb 32.8 pg (27.0-31.0); Mean Platelet Volume 9.3 fL (7.4-10.4); Nucleated Red Blood Cells % 0 % (-); Platelet Count 180 10^3/uL (130-400); Red Blood Cell Count 2.99 10^6/uL (4.70-6.10); Red Cell Dist. Width 13.2 % (11.5-14.5); White Blood Cell Count 7.1 10^3/uL (4.8-10.8)
[2024-09-06 12:45] LABS: ALT (SGPT) 22 U/L (0-50); AST (SGOT) 25 U/L (17-59); Albumin 3.7 g/dl (3.5-5.0); Alkaline Phosphatase 103 U/L (38-126); Blood Urea Nitrogen 17 mg/dl (9-20); Carbon Dioxide 28 mmol/L (22-30); Chloride 98 mmol/L (98-107); Glucose 115 mg/dl (70-99); Lipase 334 U/L (23-300); Potassium 3.9 mmol/L (3.5-5.1); Sodium 135 mmol/L (135-145); Total Bilirubin 0.5 mg/dl (0.2-1.3); Total Protein 6.2 g/dl (6.3-8.2); eGFR 41.96
--- NOTE | 2024-09-06 13:05 | ED.GENMED ---
History of Present Illness
General
Chief Complaint: Abdominal Pain
Source: patient
Exam Limitations: none
Time Seen by Provider: 09/06/24 12:55
History of Present Illness
History of Present Illness:
84yoM with a history of ESRD recently started on hemodialysis, CHF, COPD, hypertension, hyperlipidemia, chronic anemia, and BPH presenting via EMS for evaluation of flank pain. Patient went to dialysis today and completed a full session. He was
waiting to be picked up from the center when he started to experience a pain in his right flank about an hour ago. Pain was fairly severe and radiated to the right lower quadrant. EMS was called by the dialysis staff. His pain has now completely
resolved. Pain lasted approximately 30 minutes. No history of similar pains in the past. He is otherwise asymptomatic and denies any fevers, nausea, vomiting, dysuria, hematuria, testicular pain, chest pain, shortness of breath. Last bowel
movement was about 4 days ago which is normal for him.
Phy Exam
Physical Exam
Physical Exam:
Chronically ill appearing, no acute distress noted
General Physical Exam
General Presentation: no apparent distress
General Skin: warm and dry
General Habitus: elderly
General Mental: alert
ENT Exam
ENT Exam: normocephalic
Pulmonary Exam
Pulmonary Exam: lungs clear, no respiratory distress, no rales, no crackles and no rhonchi
Gastrointestinal Exam
Gastrointestinal Exam: non tender, soft, non distended and no cva tenderness
Neurological Exam
Neurological Exam: alert
[place] Coma Scale
Eye Opening: Spontaneous
Verbal Response: Oriented
Motor Response: Obeys Commands
GCS Total Score: 15
Skin Exam
Skin Exam: warm/dry
Psychiatric Exam
Psychiatric Exam: normal mood/affect
Course
Orders/Labs/Results
Orders:
Orders
09/06/24 12:09
Complete Blood Count/With Diff Urgent
Comprehensive Metabolic Panel Urgent
Lipase Urgent
09/06/24 13:05
CT Abd/pel Without Iv Or Oral Urgent
Comment:
Reason For Exam: R flank pain radiating to RLQ
09/06/24 14:51
Bladder Scan- Treatment ONCE
09/06/24 15:44
Urinalysis Reflex To Culture Urgent
Date Specimen was Collected: 09/06/24
Time Specimen was Collected: 13:05
Urine Microscopic Reflex Cult Urgent
09/06/24 16:27
Rosenberg Placement- Treatment ONCE
Reason for insertion: Acute Retention
09/06/24 16:55
Acetaminophen [Tylenol] 1,000 mg PO NOW STA
09/06/24 16:56
Polyethylene Glycol Powder [Miralax] 17 grams PO ONCE ONE
Abnormal Lab Results
09/06/24 09/06/24
12:09 15:44
RBC 2.99 L 10^6/uL
(4.70-6.10)
Hgb 9.8 L g/dL
(13.0-18.0)
Hct 29.3 L %
(39.0-52.0)
MCV 98.0 H fL
(80.0-94.0)
MCH 32.8 H pg
(27.0-31.0)
Absolute Lymphs (auto) 0.5 L 10^3/uL
(1.2-3.4)
Neutrophils % 85.3 H %
(42.2-75.2)
Lymphocytes % 7.2 L %
(20.5-51.1)
Creatinine 1.6 H mg/dL
(0.7-1.3)
Glucose 115 H mg/dl
(70-99)
Total Protein 6.2 L g/dl
(6.3-8.2)
Lipase 334 H U/L
(23-300)
Urine Albumin (Reflex) 2+ A
(Neg - Trace)
09/06/24 12:09
09/06/24 12:09
Vital Signs
Initial and Last Documented VS:
Initial Vital Signs
Temp Pulse Resp BP Pulse Ox
98.1 F 82 16 134/56 100
09/06/24 12:00 09/06/24 12:00 09/06/24 12:00 09/06/24 12:00 09/06/24 12:00
Last Documented Vital Signs
Temp Pulse Resp BP Pulse Ox
97.9 F 78 15 135/49 100
09/06/24 12:01 09/06/24 15:30 09/06/24 15:30 09/06/24 15:06 09/06/24 14:15
MDM/Problems Addressed
Differential Diagnosis Includes:
84yoM here with R flank pain radiating to the RLQ that started 1 hour ago. Lasted 30 minutes and now resolved. Hx of ESRD on HD and completed a full dialysis session today. VSS. No abdominal or CVA tenderness on exam. Differential diagnosis
including but is not limited to: kidney stone, appendicitis, musculoskeletal, less likely AAA
Initial ED plan: Check CBC, CMP, UA, and CT abdomen without oral contrast.
*Critical Care Note
Total Time (30-74mins, 75-104mins- exclusive of procedures): Not Applicable
Update Note
Update Note:
Labs overall unremarkable. Hemoglobin at baseline. CT shows severe bladder distention and large amount of fecal material in the rectum concerning for impaction. Upon further questioning, he has not urinated since 5am this morning. Patient was able
to have a large bowel movement during ED stay. After BM, he voided 200cc of urine. Postvoid residual >500cc. Rosenberg catheter placed by nursing staff with immediate return of >500cc clear yellow urine. UA bland without signs of infection. Patient
is stable for discharge back to [facility]. Advised f/u with urology for catheter removal and ED return precautions discussed.
ED Attending Note
-
Portions of this chart may have been created with voice recognition software.� Occasional wrong word or��sound alike� substitutions may have occurred due to the inherent limitations of voice recognition software.
Discharge Plan
Departure
Patient Disposition: Home (Routine Discharge)
Date of Disposition: 09/06/24
Time of Disposition: 16:55
Patient with high blood pressure during this ER visit?: No
Discharge Problem:
Constipation, Acute urinary retention
Instructions: Constipation, Adult (DC), How to Care for Your Rosenberg Catheter, Male
Prescriptions:
No Action
acetaminophen 325 mg Tablet
650 mg PO Q6HPRN MDD 3 gm PRN (Reason: mild pain)
cyanocobalamin (vitamin B-12) [Vitamin B-12] 1,000 mcg Tablet
1,000 mcg PO DAILY
magnesium hydroxide [Milk of Magnesia] 400 mg/5 mL Suspension
30 ml PO DAILYPRN PRN (Reason: constipation)
ascorbic acid (vitamin C) [Vitamin C] 500 mg Tablet
500 mg PO DAILY
ferrous gluconate 324 mg (38 mg iron) Tablet
324 mg PO DAILY
docusate sodium 100 mg Capsule
200 mg PO DAILY
sevelamer HCl 800 mg Tablet
800 mg PO AC
clopidogrel [Plavix] 75 mg Tablet
75 mg PO DAILY
Sore Throat Aerosol,[place]
2 spray MUCOUS MEMBRANE Q4HPRN PRN (Reason: sore throat)
tamsulosin [Flomax] 0.4 mg Capsule
0.4 mg PO DAILY
bisacodyl 10 mg Suppository
10 mg [place] DAILYPRN PRN (Reason: no results for MOM)
simvastatin 20 mg Tablet
20 mg PO DAILY
metoprolol succinate 25 mg Tablet Extended Release 24 Hr
12.5 mg PO DAILY
Rx Instructions:
hold if SBP is less than 115 or if heart rate is lessthan 60
oxycodone 5 mg tablet
5 mg PO Q6HPRN PRN (Reason: severe pain)
Referrals:
Donald Quesada MD [Active] -
Arnaud Kelly MD [Family Provider] -
Activity Restrictions/Additional Instructions:
Take Miralax 1-2x daily as needed for constipation.
Your catheter should be removed in 7-10 days. Please make a follow-up appointment with urology for this.
Return to the ER with any new or worsening symptoms.
Interventions
Interventions:
*Risk Screen - Suicide Last Done: 09/06/24 12:01
*General Assessment Last Done: 09/06/24 12:01
*Neglect/Abuse Screening Last Done: 09/06/24 12:01
*ED- Fall Risk Assessment Last Done: 09/06/24 12:01
*ED COVID-19 Vaccine History Last Done: 09/06/24 12:01
HF-Jigxat-Pihvqbksfc Assessment Last Done: 09/06/24 13:45
Discharge Date and Time
Print Language: KINYARWANDA
[2024-09-06 13:52] VITALS: BP 134/56
[2024-09-06 14:00] VITALS: BP 150/59
[2024-09-06 15:06] VITALS: BP 135/49
[2024-09-06 15:55] LABS: Urine Albumin 2+ (Neg - Trace); Urine Bilirubin Negative (Negative); Urine Character Clear (Clear); Urine Color Yellow; Urine Glucose Negative (Negative); Urine Ketone Negative (Negative); Urine Leukocyte Negative (Negative); Urine Nitrite Negative (Negative); Urine Occult Blood Negative (Negative); Urine Specific Gravity 1.015 (<1.030); Urine Urobilinogen Negative (Neg - 1+)
[2024-09-06 16:15] LABS: Urine Red Blood Cell 0-2 /HPF (0-2)
[2024-09-06 16:50] VITALS: BP 157/75
[2024-09-06] MEDS: TYLENOL 1000 MG PO (17:27)
[2024-09-06] MEDS: MIRALAX 17 GRAMS PO (17:28)
== END 2024-09-06 19:18 | disposition home or self-care (01) ==
LOC: EMR 12:00
PROVIDERS: Emergency Medicine; Physician Assistant; EMERGENCY PHYSICIAN Emergency Medicine; FAMILY PHYSICIAN Internal Medicine
DX: R33.8 Other retention of urine (principal); K59.00 Constipation, unspecified; I13.2 Hypertensive heart and chronic kidney disease with heart failure and with stage 5 chronic kidney disease, or end stage renal disease; I50.9 Heart failure, unspecified; N18.6 End stage renal disease; J44.9 Chronic obstructive pulmonary disease, unspecified; E78.5 Hyperlipidemia, unspecified
CPT/HCPCS: 99284; 51798; 51702; 74176; 80053; 81003; 81015; 83690; 85025

== ENCOUNTER 2024-11-13 13:10 | Inpatient (IN) | payer MEDICARE, OTHER, SELFPAY ==
[2024-11-13] VITALS (11 sets, daily range): BP systolic 103–155; BP diastolic 48–102; BMI 24.2; BMI 24.6
--- NOTE | 2024-11-13 09:17 | ED.GENMED ---
History of Present Illness
General
Chief Complaint: Breathing Problem
Source: patient and ambulance crew
Exam Limitations: none
Time Seen by Provider: 11/13/24 09:11
History of Present Illness
History of Present Illness:
84yoM with a history of ESRD on hemodialysis, CHF, COPD, hypertension, hyperlipidemia, anemia presenting via EMS for evaluation of shortness of breath. Patient is a resident a [facility] and was receiving dialysis today. He was about half way
done his treatment when he suddenly became short of breath and diaphoretic. He was hypoxic in the high 70s/low 80s and EMS was activated. Oxygen saturation in the 80s on EMS arrival and he arrives on nasal cannula. He is not oxygen dependent at
baseline. He is now feeling improved. He has been sick with a 'head cold' and has had some L shoulder discomfort for a week and a half. No chest pain.
Phy Exam
General Physical Exam
General Presentation: well appearing and no apparent distress
General Skin: warm and dry
General Habitus: normal and elderly
General Mental: alert
ENT Exam
ENT Exam: normocephalic
Cardiovascular Exam
Cardiovascular Exam: regular rate/rhythm and no edema
Pulmonary Exam
Pulmonary Exam: no respiratory distress, no rhonchi, no stridor, no wheezing and other (Faint bibasilar crackles)
Neurological Exam
Neurological Exam: alert
[place] Coma Scale
Eye Opening: Spontaneous
Verbal Response: Oriented
Motor Response: Obeys Commands
GCS Total Score: 15
Musculoskeletal Exam
Musculoskeletal Exam: other (LUE fistula)
Skin Exam
Skin Exam: normal color and warm/dry
Psychiatric Exam
Psychiatric Exam: normal mood/affect
Scores
Heart Failure Risk
Heart Failure Risk Score: Not Applicable
Course
Orders/Labs/Results
Orders:
Orders
11/13/24 09:15
Cardiac Monitoring- Treatment ONCE
11/13/24 09:16
Electrocardiogram (*1) Urgent
Reason for Study: Shortness of Breath
EKG- Treatment ONCE
CR Chest - 2 Views Urgent
Comment:
Reason For Exam: SOB
11/13/24 09:36
COVID-19 Antigen Urgent
Source: Nasal Swab
Complete Blood Count/With Diff Urgent
Comprehensive Metabolic Panel Urgent
NT-proBNP Urgent
Troponin I Urgent
Influenza A+B Rapid Molecular Urgent
ALBERTO Source: Nasal Swab
Specimen Description:
11/13/24 10:23
Aspirin Chewable [Low Strength Aspirin] 324 mg PO NOW STA
Abnormal Lab Results
11/13/24
09:36
RBC 3.52 L 10^6/uL
(4.70-6.10)
Hgb 11.6 L g/dL
(13.0-18.0)
Hct 35.4 L %
(39.0-52.0)
MCV 100.6 H fL
(80.0-94.0)
MCH 33.0 H pg
(27.0-31.0)
MCHC 32.8 L g/dL
(33.0-37.0)
RDW 14.7 H %
(11.5-14.5)
Absolute Lymphs (auto) 0.5 L 10^3/uL
(1.2-3.4)
Immature Gran % 0.6 H %
(0-0.5)
Neutrophils % 80.4 H %
(42.2-75.2)
Lymphocytes % 9.2 L %
(20.5-51.1)
BUN 38 H mg/dl
(9-20)
Creatinine 2.3 H mg/dL
(0.7-1.3)
Glucose 116 H mg/dl
(70-99)
Troponin I 0.100 H* ng/ml
11/13/24 09:36
11/13/24 09:36
Vital Signs
Initial and Last Documented VS:
Initial Vital Signs
Temp Pulse Resp BP Pulse Ox
97.6 F 54 16 103/48 99
11/13/24 09:38 11/13/24 09:38 11/13/24 09:38 11/13/24 09:38 11/13/24 09:38
Last Documented Vital Signs
Temp Pulse Resp BP Pulse Ox
97.6 F 68 29 103/48 99
11/13/24 09:38 11/13/24 09:45 11/13/24 09:45 11/13/24 09:38 11/13/24 09:45
MDM/Problems Addressed
Differential Diagnosis Includes:
84yoM here after an episode of SOB and diaphoresis at dialysis today. Hypoxic prehospital although oxygen saturation normal on arrival. Currently asymptomatic. Denies CP. No signs of respiratory distress or volume overload. Differential diagnosis
includes but is not limited to: pneumonia, ACS, arrhythmia, pulmonary edema
Initial ED plan: Check cardiac labs, COVID/flu swab, EKG, and CXR.
*EKG
Interpreted by ED Provider?: Yes
EKG Intrepretation Date: 11/13/24
Heart Rate: 65
Rate: normal
Rhythm: sinus
[place]: normal axis
Interval: first degree heart block
QRS Pattern: normal QRS
Ischemia: no ischemia
*Critical Care Note
Total Time (30-74mins, 75-104mins- exclusive of procedures): Not Applicable
Update Note
Update Note:
Labs reveal a troponin of 0.10. No prior labs to compare to. No acute ischemic changes on EKG. Chest x-ray is clear. He remains asymptomatic on reassessment. Aspirin ordered and patient admitted for further evaluation.
ED Attending Note
-
Portions of this chart may have been created with voice recognition software.� Occasional wrong word or��sound alike� substitutions may have occurred due to the inherent limitations of voice recognition software.
Discharge Plan
Departure
Patient Disposition: Admit
Date of Disposition: 11/13/24
Time of Disposition: 10:27
Presentation/result/management discussed w/ accepting MD/DO: Hospitalist
Discharge Problem:
Shortness of breath, Elevated troponin
Prescriptions:
No Action
acetaminophen 325 mg Tablet
650 mg PO Q6HPRN PRN (Reason: mild pain)
cyanocobalamin (vitamin B-12) [Vitamin B-12] 1,000 mcg Tablet
1,000 mcg PO DAILY@1200
magnesium hydroxide [Milk of Magnesia] 400 mg/5 mL Suspension
30 ml PO DAILYPRN PRN (Reason: constipation)
ascorbic acid (vitamin C) [Vitamin C] 500 mg Tablet
500 mg PO DAILY@1200
ferrous gluconate 324 mg (38 mg iron) Tablet
324 mg PO DAILY@1200
docusate sodium 100 mg Capsule
200 mg PO BID
clopidogrel [Plavix] 75 mg Tablet
75 mg PO QPM
tamsulosin [Flomax] 0.4 mg Capsule
0.4 mg PO QPM
bisacodyl 10 mg Suppository
10 mg [place] DAILYPRN PRN (Reason: no results for MOM)
simvastatin 20 mg Tablet
20 mg PO QPM
metoprolol succinate 25 mg Tablet Extended Release 24 Hr
12.5 mg PO DAILY@1200
polyethylene glycol 3350 [Miralax] 17 gram Powder In Packet
17 g PO BIDPRN PRN (Reason: constipation)
midodrine 5 mg Tablet
5 mg PO DAILYPRN PRN (Reason: bp<130. HD days only)
psyllium husk [Reguloid (psyllium husk)] 0.4 gram Capsule
0.4 g PO BID
Referrals:
Arnaud Kelly MD [Family Provider]
Interventions
Interventions:
*Risk Screen - Suicide Last Done: 11/13/24 09:38
*General Assessment Last Done: 11/13/24 09:38
*Neglect/Abuse Screening Last Done: 11/13/24 09:38
*ED- Fall Risk Assessment Last Done: 11/13/24 09:38
*ED COVID-19 Vaccine History Last Done: 11/13/24 09:38
ED- Cardiac Assessment Last Done: 11/13/24 09:38
ED- Pulmonary Assessment Last Done: 11/13/24 09:38
Discharge Date and Time
Print Language: BURKINAN
[2024-11-13 09:45] LABS: % Basophils 0.8 % (0-2); % Immature Granulocytes 0.6 % (0-0.5); % Lymphocytes 9.2 % (20.5-51.1); % Neutrophils 80.4 % (42.2-75.2); Absolute Eosinophils 0.1 10^3/uL (0-0.7); Absolute Lymphocytes 0.5 10^3/uL (1.2-3.4); Absolute Monocytes 0.3 10^3/uL (0.1-0.6); Absolute Neutrophils 3.9 10^3/uL (1.4-6.5); Hematocrit 35.4 % (39.0-52.0); Hemoglobin 11.6 g/dL (13.0-18.0); Mean Corp Hgb Conc. 32.8 g/dL (33.0-37.0); Mean Corpuscular Volume 100.6 fL (80.0-94.0); Mean Platelet Volume 8.8 fL (7.4-10.4); Nucleated Red Blood Cells % 0 % (-); Platelet Count 158 10^3/uL (130-400); Red Blood Cell Count 3.52 10^6/uL (4.70-6.10); Red Cell Dist. Width 14.7 % (11.5-14.5); White Blood Cell Count 4.9 10^3/uL (4.8-10.8)
[2024-11-13 09:55] LABS: COVID-19 Antigen Negative (Negative)
[2024-11-13 10:05] LABS: ALT (SGPT) 30 U/L (0-50); AST (SGOT) 23 U/L (17-59); Alkaline Phosphatase 114 U/L (38-126); Blood Urea Nitrogen 38 mg/dl (9-20); Calcium 8.8 mg/dl (8.4-10.2); Carbon Dioxide 26 mmol/L (22-30); Chloride 106 mmol/L (98-107); Estimated Creatinine Clearance 20 ml/min; Glucose 116 mg/dl (70-99); Potassium 3.7 mmol/L (3.5-5.1); Sodium 138 mmol/L (135-145); Total Bilirubin 0.4 mg/dl (0.2-1.3); Total Protein 6.4 g/dl (6.3-8.2); eGFR 27.15
[2024-11-13 10:21] LABS: NT-proBNP 7700 pg/ml
--- NOTE | 2024-11-13 11:02 | HPS.HSE ---
Family Physician
-
Family Physician: Arnaud Kelly
Chief Complaint
-
Shortness of breath and diaphoresis while getting dialysis
History of Present Illness
83-year-old man with shortness of breath and diaphoresis while getting dialysis. He was reportedly hypoxic prior to coming to the hospital. Patient states that his symptoms are much better since he came in even though, no meds were given he is
feeling better. Not oN O2.
Medical History
Past Medical History
Past Medical History: Reports Other
Additional Past Medical History:
COPD, emphysema, pulmonary fibrosis, CHF, hypertension, hyperlipidemia, PVD, constipation, enlarged prostate, ESRD, arthritis, fibromyalgia, DDD, anemia, depression, vitamin B deficiency
Past Surgical History: Reports Other
Additional Past Surgical History:
Discectomy, left AV fistula
Social History
Tobacco: Non-smoker
Alcohol: None
Drug: None
Living: Jail
Family History
Family History: Not pertinent
Allergies / Home Medications
Allergies reflects when Allergies were last updated in [facility].
Home Medications with original date entered in [facility]
Allergy/Medication List:
Allergies
Allergy/AdvReac Type Severity Reaction Status Date / Time
No Known Allergies Allergy Verified 09/06/24 12:01
Home Medications
acetaminophen 325 mg tablet 650 mg PO Q6HPRN PRN mild pain 11/16/23
cyanocobalamin (vitamin B-12) 1,000 mcg tablet (Vitamin B-12) 1,000 mcg PO DAILY@1200 Supplement 11/16/23
magnesium hydroxide 400 mg/5 mL oral suspension (Milk of Magnesia) 30 ml PO DAILYPRN PRN constipation 11/16/23
ascorbic acid (vitamin C) 500 mg tablet (Vitamin C) 500 mg PO DAILY@1200 Supplement 12/17/23
ferrous gluconate 324 mg (38 mg iron) tablet 324 mg PO DAILY@1200 Supplement 05/17/24
docusate sodium 100 mg capsule 200 mg PO BID 06/15/24
bisacodyl 10 mg rectal suppository 10 mg [place] DAILYPRN PRN no results for MOM 09/06/24
clopidogrel 75 mg tablet (Plavix) 75 mg PO QPM 09/06/24
metoprolol succinate 25 mg tablet,extended release 24 hr 12.5 mg PO DAILY@1200 09/06/24
simvastatin 20 mg tablet 20 mg PO QPM 09/06/24
tamsulosin 0.4 mg capsule (Flomax) 0.4 mg PO QPM 09/06/24
midodrine 5 mg tablet 5 mg PO DAILYPRN PRN bp<130. HD days only 11/13/24
polyethylene glycol 3350 17 gram oral powder packet (Miralax) 17 g PO BIDPRN PRN constipation 11/13/24
psyllium husk 0.4 gram capsule (Reguloid (psyllium husk)) 0.4 g PO BID 11/13/24
Review of Systems
-
A 12 point ROS was completed and negative except as noted: Yes
Respiratory: Reports Trouble Breathing (Had , but none now)
Cardiac: Denies Chest Pain
Physical Exam
Vital Signs
Vital Signs
Temp Pulse Resp BP Pulse Ox
97.6 F 68 29 103/48 99
11/13/24 09:38 11/13/24 09:45 11/13/24 09:45 11/13/24 09:38 11/13/24 09:45
Physical Exam
General: Comfortable and Conversant
Respiratory: Clear
Cardiac: S1/S2 and Regular Rhythm
GI: Soft and Normal Bowel Sounds
Neuro: Awake, Alert and Other (good strength LE, Distal)
Psych: Calm
Laboratory Results
-
11/13/24 09:36
11/13/24 09:36
Laboratory Results
Total Bilirubin 0.4 mg/dl (0.2-1.3) 11/13/24 09:36
AST 23 U/L (17-59) 11/13/24 09:36
ALT 30 U/L (0-50) 11/13/24 09:36
Alkaline Phosphatase 114 U/L (38-126) 11/13/24 09:36
Troponin I 0.100 ng/ml H* 11/13/24 09:36
Data Reviewed
-
Diagnostic Radiology: Image Personally Visualized and interpreted (Chest x-ray no acute changes)
Medical Tests (Nuc Med, Echo, EKG etc): Image Personally Visualized and interpreted (EKG-sinus rhythm first degree AV block septal infarct)
Impression/Plan
-
IMPRESSION/PLAN
# Shortness of breath and diaphoresis at dialysis
EKG with no acute changes
Chest x-ray with no acute changes
BNP 7700, troponin 0.10-Likely from ESRD
Check DDimer. If positive Check CTA.
Trend troponin
Hemodialysis
# ESRD on hemodialysis-Left upper arm AV graft -consult nephrology
# Hypertension-continue metoprolol
# Hyperlipidemia-continue simvastatin
# Peripheral artery disease-B/L arterial US with MAYTE: LLE: mild arterial insufficiency, and RLE normal-continue statin, Plavix
# Chronic anemia-on iron gluconate
# Mild AI
# Prostate disease-still on Flomax
# Chronic back pain/DDD/ambulatory [id number] with a walker
# DVT prophylaxis-subcutaneous heparin
# CODE STATUS-full code per discussion with patient's sister she will bring advance directives.
Discussed with ER attending
Discussed with patient's sister
Discussed with nephrology
--- NOTE | 2024-11-13 12:04 | CM ---
Reviewed chart and met with pt in ED. Resides at [facility], receives HD MWF at [facility]. Uses rolling walker. His sisters provide additional support as needed. No history of VN or SNF.
PCP: Arnaud Kelly
Pharmacy: [facility]
Plan: Return to [facility] pending ongoing medical evaluation
[2024-11-13] MEDS: LOW STRENGTH ASPIRIN 324 MG PO (12:18)
--- NOTE | 2024-11-13 13:37 | W.CON.NEPH ---
Consultation
-
Date/Time Consultation Requested: 11/13/24 1110
Date/Time Consultation Performed: 11/13/24 1240
Requesting Provider: Lianne Lancaster
Performing Provider: anabella Paez
Reason for Consultation: ESRD
Medical History
-
Chief Complaint: Shortness of breath and diaphoresis while getting dialysis
History of Present Illness:
83-year-old man with ESRD on HD imitated in august 2024 through right UE AVG,Dialysis Wednesday at [facility], chronic anemia , COPD, emphysema, pulmonary fibrosis, CHF, BPH and Flomax who was sent from [facility] for feeling
short of breath in the middle of the dialysis. Patient reports feeling well prior to getting on dialysis and suddenly had the symptoms And reportedly was hypoxic. Denies any fever or chills. denies any chest pain abdominal pain nausea vomiting.
Patient states that his symptoms are much better since he came in even though, no meds were given he is feeling better. Not oN O2. his potassium 3.7, sodium 138, BUN 38.
Past Medical History
ESRD MWF dialysis at [facility]
Hypertension
Anemia of CKD
BPH
COPD
Former smoker
CHF with recovered EF
DDD
Ambulatory dysfunction
Chronic pain
PAD
depression, vitamin B deficiency
LUE AVF (12/2023)
LUE Fistulogram x 2 (with stent x 1)
LUE AVG (06/19/24)
Back surgery x 3
Past Surgical History: Other (Discectomy, left AV fistula)
Social History
Relocated from [place] to [facility] in early 2023 with known CKD 5.
Tobacco: Former Smoker ( Quit smoking February 2024)
Alcohol: None
Drug: None
Personal: ( in 2022)
Living: Retirement
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
Family History
father at 90. Mother at 88 Alzheimer's dementia. Brother at 84 with CKD 4. Sister with CKD.
Allergies / Home Medications
Allergy/AdvReac Type Severity Reaction Status Date / Time
No Known Allergies Allergy Verified 09/06/24 12:01
�Medication �Instructions �Recorded �Confirmed �Type
acetaminophen 325 mg tablet 650 mg PO Q6HPRN PRN mild pain 11/16/23 11/13/24 History
cyanocobalamin (vitamin B-12) 1,000 mcg PO DAILY@1200 Supplement 11/16/23 11/13/24 History
1,000 mcg tablet (Vitamin B-12)
magnesium hydroxide 400 mg/5 mL 30 ml PO DAILYPRN PRN constipation 11/16/23 11/13/24 History
oral suspension (Milk of Magnesia)
ascorbic acid (vitamin C) 500 mg 500 mg PO DAILY@1200 Supplement 12/17/23 11/13/24 History
tablet (Vitamin C)
ferrous gluconate 324 mg (38 mg 324 mg PO DAILY@1200 Supplement 05/17/24 11/13/24 History
iron) tablet
docusate sodium 100 mg capsule 200 mg PO BID 06/15/24 11/13/24 History
bisacodyl 10 mg rectal suppository 10 mg [place] DAILYPRN PRN no results 09/06/24 11/13/24 History
for MOM
clopidogrel 75 mg tablet (Plavix) 75 mg PO QPM 09/06/24 11/13/24 History
metoprolol succinate 25 mg 12.5 mg PO DAILY@1200 09/06/24 11/13/24 History
tablet,extended release 24 hr
simvastatin 20 mg tablet 20 mg PO QPM 09/06/24 11/13/24 History
tamsulosin 0.4 mg capsule (Flomax) 0.4 mg PO QPM 09/06/24 11/13/24 History
midodrine 5 mg tablet 5 mg PO DAILYPRN PRN bp<130. HD 11/13/24 11/13/24 History
days only
polyethylene glycol 3350 17 gram 17 g PO BIDPRN PRN constipation 11/13/24 11/13/24 History
oral powder packet (Miralax)
psyllium husk 0.4 gram capsule 0.4 g PO BID 11/13/24 11/13/24 History
(Reguloid (psyllium husk))
Review of Systems
-
All other systems: Negative unless noted
Physical Exam
Vital Signs
Vital Signs
Temp Pulse Resp BP Pulse Ox
97.6 F 68 29 103/48 99
11/13/24 09:38 11/13/24 09:45 11/13/24 09:45 11/13/24 09:38 11/13/24 09:45
Lab Results
WBC 4.9 10^3/uL (4.8-10.8) 11/13/24 09:36
RBC 3.52 10^6/uL (4.70-6.10) L 11/13/24 09:36
Hgb 11.6 g/dL (13.0-18.0) L 11/13/24 09:36
Hct 35.4 % (39.0-52.0) L 11/13/24 09:36
Plt Count 158 10^3/uL (130-400) 11/13/24 09:36
Sodium 138 mmol/L (135-145) 11/13/24 09:36
Potassium 3.7 mmol/L (3.5-5.1) 11/13/24 09:36
Chloride 106 mmol/L (98-107) 11/13/24 09:36
Carbon Dioxide 26 mmol/L (22-30) 11/13/24 09:36
BUN 38 mg/dl (9-20) H 11/13/24 09:36
Creatinine 2.3 mg/dL (0.7-1.3) H 11/13/24 09:36
eGFR 27.15 11/13/24 09:36
Glucose 116 mg/dl (70-99) H 11/13/24 09:36
Calcium 8.8 mg/dl (8.4-10.2) 11/13/24 09:36
Qxn-Q-Aqhntdtkdpm Pept 7700 pg/ml 11/13/24 09:36
Albumin 4.0 g/dl (3.5-5.0) 11/13/24 09:36
Physical Exam
General: Awake, Alert, Oriented, AOx3, No Distress and Nontoxic
HEENT: EOMI, Anicteric, Conjunctivae Clear and Facial Symmetry
Respiratory: Clear, Normal Excursion and Nonlabored Respirations
Cardiac: S1/S2 and Regular Rate/Rhythm
Breast: Deferred by me
Abdomen: Soft, Nontender and Nondistended
Musculoskeletal: No Cyanosis and No Edema
Skin: No Rash
Neuro: Nonfocal/Grossly Intact
Psych: Mood/afflect pleasant, Insight/judgement good and Appropriate
Vascular Access: AVG
Data Reviewed
-
Radiology: Report Reviewed by me and Discussed with Patient
Labs: Labs Reviewed by me and Discussed with Patient
Assessment/Plan
-
Assessment:
Shortness of breath and diaphoresis at dialysis
ESRD-MWF at [facility] from 08/2024
Hyperlipidemia
PAD
Chronic anemia
History heart failure with preserved EF
Left upper arm AV graft
COPD/emphysema
BPH
Chronic back pain/DDD/ambulatory dysfunction
Plan:
A/w sob while getting HD
seem hemodynamically stable and no hypervolemia
electrolytes acceptable
no emergent need of HD
next HD will be on Wednesday
trending troponin
d/w pt
[2024-11-13 14:15] LABS: Troponin I 0.088 ng/ml
--- NOTE | 2024-11-13 15:38 | EDRN ---
this RN called the receiving unit and notified them that paper report was going to be tubed up
[2024-11-13] MEDS: FLOMAX 0.4 MG PO (18:07)
[2024-11-13] MEDS: PLAVIX 75 MG PO (18:07)
[2024-11-13] MEDS: LIPITOR 10 MG PO (18:07)
[2024-11-13] MEDS: HEPARIN 5000 UNITS SC ×2 (18:08→23:17)
[2024-11-13] MEDS: MIRALAX PO (18:10)
[2024-11-13] MEDS: COLACE 200 MG PO (20:24)
[2024-11-13] MEDS: MIRALAX 17 GRAMS PO (20:24)
[2024-11-13 21:34] LABS: Troponin I 0.108 ng/ml
[2024-11-14 03:52] VITALS: BP 125/52
[2024-11-14 06:00] VITALS: BMI 24.4
[2024-11-14 06:44] LABS: Blood Urea Nitrogen 52 mg/dl (9-20); Calcium 9.5 mg/dl (8.4-10.2); Carbon Dioxide 25 mmol/L (22-30); Chloride 108 mmol/L (98-107); Estimated Creatinine Clearance 14 ml/min; Glucose 102 mg/dl (70-99); Potassium 4.8 mmol/L (3.5-5.1); Sodium 137 mmol/L (135-145)
[2024-11-14 06:45] LABS: Hematocrit 32.3 % (39.0-52.0); Hemoglobin 10.8 g/dL (13.0-18.0); Mean Corp Hgb Conc. 33.4 g/dL (33.0-37.0); Mean Corpuscular Hgb 32.6 pg (27.0-31.0); Mean Corpuscular Volume 97.6 fL (80.0-94.0); Mean Platelet Volume 9.6 fL (7.4-10.4); Platelet Count 163 10^3/uL (130-400); Red Blood Cell Count 3.31 10^6/uL (4.70-6.10); Red Cell Dist. Width 14.8 % (11.5-14.5); White Blood Cell Count 11.8 10^3/uL (4.8-10.8)
[2024-11-14 07:41] VITALS: BP 124/54
[2024-11-14] MEDS: HEPARIN 5000 UNITS SC ×2 (08:43→17:04)
[2024-11-14] MEDS: COLACE 200 MG PO (08:45)
[2024-11-14] MEDS: MIRALAX 17 GRAMS PO (08:45)
--- NOTE | 2024-11-14 10:40 | W.PN.NEPH.PH ---
Today's Communication / Plan
-
HD tomorrow
Assessment/Plan
-
Assessment:
Shortness of breath and diaphoresis at dialysis
ESRD-MWF at [facility] from 08/2024
Hyperlipidemia
PAD
Chronic anemia
History heart failure with preserved EF
Left upper arm AV graft
COPD/emphysema
BPH
Chronic back pain/DDD/ambulatory dysfunction
Plan:
SOB spontaneously resolved
no evidence of volume overload
HD tomorrow either inpt or at OP HD unit
-
-
Date of Service: November 14, 2024
CC / HPI / ROS
-
Chief Complaint:
ESRD
History of Present Illness:
BP stable
SOB improved
K normal
Hgb stable 10.8
Review of Systems:
no CP/SOB
Labs
-
Labs:
WBC 11.8 10^3/uL (4.8-10.8) H 11/14/24 05:57
RBC 3.31 10^6/uL (4.70-6.10) L 11/14/24 05:57
Hgb 10.8 g/dL (13.0-18.0) L 11/14/24 05:57
Hct 32.3 % (39.0-52.0) L 11/14/24 05:57
Plt Count 163 10^3/uL (130-400) 11/14/24 05:57
Sodium 137 mmol/L (135-145) 11/14/24 05:57
Potassium 4.8 mmol/L (3.5-5.1) D 11/14/24 05:57
Chloride 108 mmol/L (98-107) H 11/14/24 05:57
Carbon Dioxide 25 mmol/L (22-30) 11/14/24 05:57
BUN 52 mg/dl (9-20) H 11/14/24 05:57
Creatinine 3.3 mg/dL (0.7-1.3) H 11/14/24 05:57
eGFR 17.60 11/14/24 05:57
Glucose 102 mg/dl (70-99) H 11/14/24 05:57
Calcium 9.5 mg/dl (8.4-10.2) 11/14/24 05:57
Ocu-H-Abuswdwdpyg Pept 7700 pg/ml 11/13/24 09:36
Albumin 4.0 g/dl (3.5-5.0) 11/13/24 09:36
Physical Exam
-
Vital Signs:
Vital Signs
Temp Pulse Resp BP Pulse Ox
97.3 F 74 18 124/54 98
11/14/24 07:41 11/14/24 07:41 11/14/24 07:41 11/14/24 07:41 11/14/24 07:41
Cardiovascular:: Regular rate and rhythm
Respiratory:: Bilateral: CTA
Lung Excursion:: Normal
Abdomen:: Nontender and Soft
Bowel Sounds:: Normal
Extremity Edema:: None: Bilateral:
[2024-11-14 10:56] LABS: Troponin I 0.126 ng/ml
[2024-11-14 11:12] VITALS: BP 132/50
--- NOTE | 2024-11-14 12:41 | CM ---
Reviewed the chart notes and spoke with [facility] Liaison. 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 Received HD M-W-. CM continues to be available to patient/family and is monitoring medical plan for needs at discharge.
Plan: Discharge back to [facility] when medically stable. No precert required.
[2024-11-14] MEDS: TOPROL XL 12.5 MG PO (13:24)
[2024-11-14] MEDS: VITAMIN B-12 1000 MCG PO (13:25)
[2024-11-14] MEDS: FEOSOL 325 MG PO (13:25)
[2024-11-14 14:52] VITALS: BP 142/67
--- NOTE | 2024-11-14 15:09 | W.PN.HOSP.TC ---
Addendum entered and electronically signed by Lianne Machado MD 11/14/24 17:57:
called both sisters again. Went to message .
I had left message for primary contact earlier
Addendum entered and electronically signed by Lianne Machado MD 11/14/24 16:52:
Trop levelled
ECHO OK
Pt with no symptoms
Clinically stable
Will discharge
Left a message for sister
Addendum entered and electronically signed by Lianne Machado MD 11/14/24 15:15:
Echo 11/13/2024-normal biventricular size and systolic function without any regional wall motion abnormality. EF 60 to 65%. Mild AI. Insufficient TR for estimation of PASP
Original Note:
Today's Communication/Plan
-
1 more set of troponin if trending down will discharge
Assessment / Plan
Assessment / Plan
Was sitting up asking if he can be discharged denies any shortness of breath says that he has not had any symptoms since admission
Or he came into the ER.
No chest pain no shortness of breath
Cardiovascular system S1-S2 appreciated
Chest clear to auscultation
Abdomen soft and nontender
No pedal edema
CTA chest-no PE. Probable combination of subsegmental atelectasis and infectious/inflammatory bronchiolitis
# Shortness of breath and diaphoresis at dialysis
No hypoxia documented in the ER nor he needed any oxygen
In the ER itself yesterday patient stated that he was not short of breath
EKG with no acute changes
Chest x-ray with no acute changes
BNP 7700, troponin 0.10-Likely from ESRD
Troponin 1 more set ordered
Chest with no PE on CTA
# ESRD on hemodialysis-Left upper arm AV graft -hemodialysis planned for 11/15/2024 inpatient or outpatient
# Hypertension-continue metoprolol
# Hyperlipidemia-continue simvastatin
# Peripheral artery disease-B/L arterial US with MAYTE: LLE: mild arterial insufficiency, and RLE normal-continue statin, Plavix
# Chronic anemia-on iron gluconate
# Mild AI
# Prostate disease-still on Flomax
# Chronic back pain/DDD/ambulatory ljgolqunhqt-qnmskiu-vtikwqmcm with a walker
# DVT prophylaxis-subcutaneous heparin
# CODE STATUS-full code per discussion with patient's sister
Discussed with nephrology-okay for discharge
Discussed with nursing
Anticipated Discharge: Today
Subjective/Interval History
-
Date of Service: November 14, 2024
Objective Data
-
Labs:
Laboratory Results
11/14/24
05:57
WBC 11.8 H
Hgb 10.8 L
Hct 32.3 L
Plt Count 163
Sodium 137
Potassium 4.8 D
Chloride 108 H
Carbon Dioxide 25
BUN 52 H
Creatinine 3.3 H
Glucose 102 H
Calcium 9.5
Vital Signs:
Vital Signs
Temp Pulse Resp BP Pulse Ox
98.1 F 78 17 142/67 98
11/14/24 14:52 11/14/24 14:52 11/14/24 14:52 11/14/24 14:52 11/14/24 14:52
I&O
11/13/24 11/14/24 11/15/24
06:59 06:59 06:59
Output Total 600 / 600
Balance -600 / -600
[2024-11-14 16:23] LABS: Troponin I 0.127 ng/ml
--- NOTE | 2024-11-14 16:52 | W.DS.TRANS ---
DC Summary - Regional Sales Coordinator
-
Discharge Instructions:
Discharge Diagnosis/Procedures Shortness of breath
ESRD on hemodialysis
Hypertension
Hyperlipidemia
Peripheral artery disease
Chronic anemia
Prostate disease
Chronic back pain/ambulatory dysfunction
Diet Restrict fluids to 64 oz,2 Gram Sodium
Activity As tolerated,With assistance
Driving Restrictions No driving
Other Services PT
Instructions:
Stand-Alone Forms:
Changes to Home Medications: No
Discharge Medications:
DC Medications w/original date entered in [facility]
acetaminophen 325 mg tablet 650 mg PO Q6HPRN PRN mild pain 11/16/23
cyanocobalamin (vitamin B-12) 1,000 mcg tablet (Vitamin B-12) 1,000 mcg PO DAILY@1200 Supplement 11/16/23
magnesium hydroxide 400 mg/5 mL oral suspension (Milk of Magnesia) 30 ml PO DAILYPRN PRN constipation 11/16/23
ascorbic acid (vitamin C) 500 mg tablet (Vitamin C) 500 mg PO DAILY@1200 Supplement 12/17/23
ferrous gluconate 324 mg (38 mg iron) tablet 324 mg PO DAILY@1200 Supplement 05/17/24
bisacodyl 10 mg rectal suppository 10 mg [place] DAILYPRN PRN no results for MOM 09/06/24
midodrine 5 mg tablet 5 mg PO DAILYPRN PRN bp<130. HD days only 11/13/24
polyethylene glycol 3350 17 gram oral powder packet (Miralax) 17 g PO BIDPRN PRN constipation 11/13/24
clopidogrel 75 mg tablet (Plavix) 75 mg PO QPM Blood clot prevention/tx #0 tabs 11/14/24
docusate sodium 100 mg capsule 200 mg (2 x 100 mg) PO BID Constipation #0 caps 11/14/24
metoprolol succinate 25 mg tablet,extended release 24 hr 12.5 mg (1/2 x 25 mg) PO DAILY@1200 Blood pressure #0 tabs 11/14/24
psyllium husk 0.4 gram capsule (Reguloid (psyllium husk)) 0.4 g PO BID Constipation #0 caps 11/14/24
simvastatin 20 mg tablet 20 mg PO QPM High cholesterol #0 tabs 11/14/24
tamsulosin 0.4 mg capsule (Flomax) 0.4 mg PO QPM Urinary issue #0 caps 11/14/24
Home Medication Changes
Pending Results: No
[2024-11-14] MEDS: LIPITOR 10 MG PO (17:05)
[2024-11-14] MEDS: FLOMAX 0.4 MG PO (17:05)
[2024-11-14] MEDS: PLAVIX 75 MG PO (17:05)
[2024-11-14 19:54] VITALS: BP 136/61
--- NOTE | 2024-11-14 20:30 | PTCARENOTE ---
Pt picked up via ambulance to be transported back to [facility]. Tele box and IV removed.
--- NOTE | 2024-11-15 09:10 | PN.CDI ---
CDI
- -
CDI:
Physician Documentation Request
Admit Date: 11/13/24 13:10
Dear Doctor Carter,
Patient presented to ED from dialysis after experiencing shortness of breath and diaphoresis.
Troponin was noted to be elevated.
Laboratory Tests
11/13/24 11/13/24 11/13/24
09:36 13:36 21:02
Troponin I 0.100 H* 0.088 H* 0.108 H*
11/14/24 11/14/24
10:17 15:40
Troponin I 0.126 H* 0.127 H*
Could you please provide a diagnosis that supports the above lab abnormalities and additional evaluation/ monitoring:
Nonischemic myocardial injury
Type II IN- demand ischemia
Other
Use of terms such as suspected, likely, concern for, or probable (associated with a specific diagnosis that is being evaluated, monitored, or treated as if it exists) are acceptable and can be coded in the inpatient setting, when documented at the
time of discharge.
Thank you,
Ericka Wen RN, BSN
CDI Specialist
tiger text
Please use your independent medical judgment in providing your response.
== END 2024-11-14 20:40 | DRG 204 ==
LOC: 3 WEST ACU 13:10
PROVIDERS: Physician Assistant; ADMITTING PHYSICIAN Hospitalist; CONSULT PHYSICIAN Internal Medicine; EMERGENCY PHYSICIAN Emergency Medicine; FAMILY PHYSICIAN Internal Medicine
DX: R06.02 Shortness of breath (principal); N18.6 End stage renal disease; I13.2 Hypertensive heart and chronic kidney disease with heart failure and with stage 5 chronic kidney disease, or end stage renal disease; I50.32 Chronic diastolic (congestive) heart failure; R61 Generalized hyperhidrosis; Z99.2 Dependence on renal dialysis; I73.9 Peripheral vascular disease, unspecified; E78.5 Hyperlipidemia, unspecified; D63.1 Anemia in chronic kidney disease; G89.29 Other chronic pain; R09.02 Hypoxemia; Z87.891 Personal history of nicotine dependence; K59.00 Constipation, unspecified; Z79.02 Long term (current) use of antithrombotics/antiplatelets; E53.9 Vitamin B deficiency, unspecified; F32.A Depression, unspecified; I44.0 Atrioventricular block, first degree; J43.9 Emphysema, unspecified; M79.7 Fibromyalgia; N40.0 Benign prostatic hyperplasia without lower urinary tract symptoms; Z82.0 Family history of epilepsy and other diseases of the nervous system
CPT/HCPCS: 71046; 71275; 80048; 80053; 83880; 84484; 85025; 85027; 85379; 87070; 87502; 87811; 93005; 93306; 99285; P9047; Q9967

== ENCOUNTER 2025-04-12 13:06 | Observation (INO) | payer MEDICARE, OTHER, SELFPAY ==
[2025-04-12] VITALS (10 sets, daily range): BP systolic 94–154; BP diastolic 49–65; BMI 23.5
--- NOTE | 2025-04-12 11:02 | ED.GENMED ---
History of Present Illness
General
Chief Complaint: Fainting/Passed Out
Source: patient
Exam Limitations: none
Time Seen by Provider: 04/12/25 10:48
Nursing documentation reviewed up to this point in time: agreed with
History of Present Illness
History of Present Illness:
85-year-old male with a past medical history of COPD, CHF, pulmonary fibrosis, hypertension, hyperlipidemia, ESRD on dialysis who presents to the ER from [facility] for evaluation after syncopal episode. Patient reports that he was getting ready
to take a shower. He states that he had a bowel movement before taking a shower and was sitting on the toilet waiting for his aide to help him into the shower. He says he began to feel lightheaded and mildly sweaty and passed out. He did not have
any chest pain, shortness of breath or palpitations preceding his syncope and denies any symptoms currently. He does not believe that he had any traumatic injury or head strike. He does, however, complain of a mild headache since the episode and
had nausea with 2 episodes of vomiting. He denies any abdominal or flank pain. He says that he had 1 similar episode in the past. He is on Wednesday/Wednesday/Wednesday schedule for dialysis and says he had a full session yesterday without any issues.
Review of Systems
Review of Systems
All Other Systems: ROS reviewed and negative except as documented in HPI and ROS
Constitutional: Denies fever or chills
Respiratory: Denies trouble breathing
Cardiac: Reports diaphoresis and syncope; Denies chest pain or palpitations
ABD/GI: Reports nausea and vomiting; Denies abdominal pain or diarrhea
: Denies flank pain
Musculoskeletal: Denies neck pain or back pain
Neurological: Reports headache
Phy Exam
Physical Exam
Physical Exam:
General: Awake, alert, oriented x3; no acute distress
Head: Normocephalic, atraumatic
Eyes: Conjunctiva normal, EOMI, pupils equal round reactive to light bilaterally
Throat: Airway intact, handling secretions
Neck: Trachea midline, no JVD; posterior scar from prior surgery
Lungs: Clear to auscultation bilaterally, no wheezing, rales, rhonchi
Heart: Regular rate and rhythm, no murmurs, gallops, or rubs appreciated
Abd: Soft, non distended, nontender with no masses
Neuro: Cranial nerves grossly intact, speech fluid, motor and sensory intact
Skin: Warm and dry
Extremities: No edema in extremities, left upper extremity fistula noted with palpable thrill, extremities are warm and well-perfused
Scores
Heart Failure Risk
Heart Failure Risk Score: Not Applicable
Heart Score for Chest Pain Patients
STEMI patient?: Not applicable
Withdrawal Assessment of Alcohol
Withdrawal Assessment Completed?: Not applicable
Course
Orders/Labs/Results
Orders:
Orders
04/12/25 10:48
Electrocardiogram (*1) Urgent
Reason for Study: Syncope
EKG- Treatment ONCE
04/12/25 10:56
Complete Blood Count/With Diff Urgent
Comprehensive Metabolic Panel Urgent
04/12/25 11:04
CT Head W/o Iv Contrast Urgent
Comment:
Reason For Exam: syncope and collapse, headache, nausea
0.9% Sodium Chloride 250 ml [Nss] 250 ml IV BOLUS
Ondansetron Injectable [Zofran] 4 mg IV NOW STA
Abnormal Lab Results
04/12/25
10:56
WBC 4.6 L 10^3/uL
(4.8-10.8)
RBC 3.09 L 10^6/uL
(4.70-6.10)
Hgb 10.3 L g/dL
(13.0-18.0)
Hct 31.0 L %
(39.0-52.0)
MCV 100.3 H fL
(80.0-94.0)
MCH 33.3 H pg
(27.0-31.0)
Absolute Lymphs (auto) 1.0 L 10^3/uL
(1.2-3.4)
Monocytes % 13.2 H %
(1.7-9.3)
Sodium 130 L mmol/L
(135-145)
Chloride 97 L mmol/L
(98-107)
BUN 50 H mg/dl
(9-20)
Creatinine 3.0 H mg/dL
(0.7-1.3)
04/12/25 10:56
04/12/25 10:56
Vital Signs
Initial and Last Documented VS:
Initial Vital Signs
Temp Pulse Resp BP Pulse Ox
36.4 C 64 20 97/53 98
04/12/25 10:49 04/12/25 10:49 04/12/25 10:49 04/12/25 10:49 04/12/25 10:49
Last Documented Vital Signs
Temp Pulse Resp BP Pulse Ox
36.4 C 64 20 97/53 98
04/12/25 10:49 04/12/25 10:49 04/12/25 10:49 04/12/25 10:49 04/12/25 11:03
MDM/Problems Addressed
Differential Diagnosis Includes:
Vasovagal episode, dysrhythmia, anemia, hypovolemia after dialysis; subarachnoid hemorrhage considered much less likely despite his reported headache
MDM/Problems Addressed:
Ggaultx-qowl-xwl male presents for evaluation after syncopal episode that occurred shortly after having a bowel movement. Hypotensive with blood pressure 97/53 but otherwise normal vitals. EKG shows sinus rhythm. No change from prior. Physical
exam as noted. Plan to check labs including a CBC and a CMP. Check CT head given his reported headache after syncope to rule out traumatic injury or signs of subarachnoid bleed although low clinical suspicion. Will monitor patient on telemetry.
Zofran for nausea. Provide some gentle fluids with hypotension and syncope. Reassess after the above.
Labs reviewed: CBC shows stable anemia, CMP no significant electrolyte derangements, findings consistent with ESRD. CT head no acute abnormalities. Patient remains mildly hypotensive. Will continue with fluids. Overall I suspect this was
vasovagal syncope based on history but given his extensive medical history and continued low blood pressure will admit for monitoring. Discussed with hospitalist.
Chronic conditions affecting care:
ESRD, CHF
*Radiology
Radiology exam reviewed: radiology read reviewed
*Pulse Oximetry
SaO2: 98
Oxygen Mode of Delivery: Room air
Patient hypoxic: no (98%)
*EKG
Interpreted by ED Provider?: Yes
Comparison EKG: no changes
Heart Rate: 64
Rate: normal
Rhythm: sinus
Clements: normal axis
Interval: normal interval and normal QT interval
QRS Pattern: normal QRS
Ischemia: non-specific ST changes
*Critical Care Note
Total Time (30-74mins, 75-104mins- exclusive of procedures): Not Applicable
Data Reviewed
Review of Other/Old Records Reveals: Labs and Records
Source: patient, records, ambulance crew and long-term
Patient Management
Discussion with other providers: Hospitalist (Discussed with hospitalist)
Escalation/DeEscalation of care consider admission/obs:
Admission indicated
ED Attending Note
-
Portions of this chart may have been created with voice recognition software.� Occasional wrong word or��sound alike� substitutions may have occurred due to the inherent limitations of voice recognition software.
Discharge Plan
Departure
Patient Disposition: Admit
Date of Disposition: 04/12/25
Time of Disposition: 12:12
Admit to doctor: Laura
Presentation/result/management discussed w/ accepting MD/DO: Hospitalist
Discharge Problem:
Syncope
Prescriptions:
No Action
acetaminophen 325 mg Tablet
650 mg PO Q6HPRN PRN (Reason: mild pain)
cyanocobalamin (vitamin B-12) [Vitamin B-12] 1,000 mcg Tablet
1,000 mcg PO DAILY@1200
magnesium hydroxide [Milk of Magnesia] 400 mg/5 mL Suspension
30 ml PO DAILYPRN PRN (Reason: constipation)
ascorbic acid (vitamin C) [Vitamin C] 500 mg Tablet
500 mg PO DAILY@1200
ferrous gluconate 324 mg (38 mg iron) Tablet
324 mg PO DAILY@1200
bisacodyl 10 mg Suppository
10 mg [place] DAILYPRN PRN (Reason: no results for MOM)
polyethylene glycol 3350 [Miralax] 17 gram Powder In Packet
17 g PO BIDPRN PRN (Reason: constipation)
midodrine 5 mg Tablet
5 mg PO DAILYPRN PRN (Reason: bp<130. HD days only)
clopidogrel [Plavix] 75 mg Tablet
75 mg PO QPM Qty: 0 0RF
tamsulosin [Flomax] 0.4 mg Capsule
0.4 mg PO QPM Qty: 0 0RF
simvastatin 20 mg Tablet
20 mg PO QPM Qty: 0 0RF
docusate sodium 100 mg Capsule
200 mg PO BID Qty: 0 0RF
metoprolol succinate 25 mg Tablet Extended Release 24 Hr
12.5 mg PO DAILY@1200 Qty: 0 0RF
psyllium husk [Reguloid (psyllium husk)] 0.4 gram Capsule
0.4 g PO BID Qty: 0 0RF
Referrals:
Arnaud Kelly MD [Family Provider]
Interventions
Interventions:
*Risk Screen - Suicide Last Done: 04/12/25 10:49
*General Assessment Last Done: 04/12/25 10:49
*Neglect/Abuse Screening Last Done: 04/12/25 10:49
*ED COVID-19 Vaccine History Last Done: 04/12/25 11:05
*ED Influenza Vaccine History Last Done: 04/12/25 11:05
ED- Cardiac Assessment Last Done: 04/12/25 11:05
ED- Neurological Assessment Last Done: 04/12/25 11:05
Discharge Date and Time
Print Language: ROMANIAN
[2025-04-12] MEDS: ZOFRAN 4 MG IV (11:12)
[2025-04-12] MEDS: NSS 250 IV (11:12)
[2025-04-12 11:22] LABS: Hematocrit 31.0 % (39.0-52.0); Hemoglobin 10.3 g/dL (13.0-18.0); Mean Corp Hgb Conc. 33.2 g/dL (33.0-37.0); Mean Corpuscular Volume 100.3 fL (80.0-94.0); Nucleated Red Blood Cells % 0 % (-); Platelet Count 157 10^3/uL (130-400); Red Cell Dist. Width 13.5 % (11.5-14.5)
[2025-04-12 11:28] LABS: ALT (SGPT) 22 U/L (0-50); AST (SGOT) 22 U/L (17-59); Albumin 3.9 g/dl (3.5-5.0); Alkaline Phosphatase 80 U/L (38-126); Blood Urea Nitrogen 50 mg/dl (9-20); Calcium 8.9 mg/dl (8.4-10.2); Carbon Dioxide 23 mmol/L (22-30); Chloride 97 mmol/L (98-107); Estimated Creatinine Clearance 16 ml/min; Glucose 98 mg/dl (70-99); Potassium 3.9 mmol/L (3.5-5.1); Sodium 130 mmol/L (135-145); Total Protein 6.5 g/dl (6.3-8.2); eGFR 19.61
--- NOTE | 2025-04-12 12:14 | HPS.HSE ---
Addendum entered and electronically signed by aKr Sanchez MD 04/12/25 13:00:
This is an addendum to H&P written by Shiloh Peterson on 04/12/2025. �Patient seen and examined and independently with PA.
85-year-old male past medical history of ESRD on hemodialysis Wednesday, Wednesday, Wednesday, mild aortic regurgitation, Mobitz 1 heart block, hypertension, hyperlipidemia, PAD, chronic anemia, chronic back pain/amatory dysfunction, BPH, presenting for
syncopal episode. �He was getting ready to take a shower and had a bowel movement before taking shower and was sitting on the toilet and felt lightheaded and mildly sweaty and passed out. �No symptoms currently. �No chest pain or shortness of
breath. �Complains of mild headache and nausea with 2 episodes of vomiting since episode. �Had 1 similar episode in the past.
Currently feels normal.�
He had dialysis session yesterday.
Vital signs show blood pressure 97/53 improved to 114 systolic after fluids.�
Labs show stable anemia of 10.3. �Leukopenia 4.6. �Sodium 130.
EKG shows sinus rhythm with first-degree AV block.
CT head shows no acute intracranial abnormality, near complete opacification of the right sided mastoid air cells.
Patient with likely vasovagal episode. 250 cc IV fluids given in ER.� Metoprolol seems to be given for hypertension, hold for now, can potentially be discontinued.� Telemetry monitoring.�
Nephrology consulted for dialysis tomorrow.
Original Note:
Family Physician
-
Family Physician: Arnaud Kelly
Chief Complaint
-
Syncope
History of Present Illness
Patient is an 85 y/o male past medical history of ESRD on HD, Hypertension, COPD, and BPH who presents following a syncopal episode. Patient reports he was sitting on the toilet after having a bowel movement, and waiting for his aide to help into
the shower. He reports began to feel lightheaded, mildly sweaty and then passed out. Following the episode he began very nauseous, and had two episodes of vomiting. Blood pressure noted to be on the low upon arrival to the emergency department.
He denies any chest pain, palpitations or shortness of breath.
Medical History
Past Medical History
Past Medical History: Reports Other
Additional Past Medical History:
ESRD on HD
Chronic Hyperkalemia
Chronic Metabolic Acidosis
Anemia of CKD
PAD
Hypertension
BPH
COPD
CHF
DDD
Ambulatory Dysfunction
Chronic Pain
Past Surgical History: Reports Other
Additional Past Surgical History:
LUE AVF (12/2023)
LUE Fistulogram x 2 (with stent x 1)
LUE AVG (06/19/24)
Back Surgery x 3
Social History
Tobacco: Former Smoker (Quit smoking about 1 year ago. > 40 pack years total use.)
Alcohol: None
Drug: None
Living: Jail
Family History
Family History: Not pertinent
Allergies / Home Medications
Allergies reflects when Allergies were last updated in [employer].
Home Medications with original date entered in [employer]
Allergy/Medication List:
Allergies
Allergy/AdvReac Type Severity Reaction Status Date / Time
No Known Allergies Allergy Verified 09/06/24 12:01
Home Medications
acetaminophen 325 mg tablet 650 mg PO Q6HPRN PRN mild pain 11/16/23
cyanocobalamin (vitamin B-12) 1,000 mcg tablet (Vitamin B-12) 1,000 mcg PO DAILY@1200 Supplement 11/16/23
magnesium hydroxide 400 mg/5 mL oral suspension (Milk of Magnesia) 30 ml PO DAILYPRN PRN constipation 11/16/23
ascorbic acid (vitamin C) 500 mg tablet (Vitamin C) 500 mg PO DAILY@1200 Supplement 12/17/23
ferrous gluconate 324 mg (38 mg iron) tablet 324 mg PO DAILY@1200 Supplement 05/17/24
bisacodyl 10 mg rectal suppository 10 mg MD DAILYPRN PRN no results for MOM 09/06/24
midodrine 5 mg tablet 5 mg PO DAILYPRN PRN bp<130. HD days only 11/13/24
clopidogrel 75 mg tablet (Plavix) 75 mg PO QPM Blood clot prevention/tx #0 tabs 11/14/24
metoprolol succinate 25 mg tablet,extended release 24 hr 12.5 mg (1/2 x 25 mg) PO DAILY@1200 Blood pressure #0 tabs 11/14/24
simvastatin 20 mg tablet 20 mg PO QPM High cholesterol #0 tabs 11/14/24
tamsulosin 0.4 mg capsule (Flomax) 0.4 mg PO QPM Urinary issue #0 caps 11/14/24
carboxymethylcellulose sodium 0.5 % eye drops (Refresh Tears) 1 drp BOTH EYES BID 04/12/25
linaclotide 72 mcg capsule (Linzess) 72 mcg PO TUTHFR 04/12/25
sevelamer carbonate 800 mg tablet 1,600 mg PO AC 04/12/25
Review of Systems
-
A 12 point ROS was completed and negative except as noted: Yes
Constitutional: Denies Fever
Respiratory: Denies Cough or Trouble Breathing
Cardiac: Denies Chest Pain or Palpitations
Physical Exam
Vital Signs
Vital Signs
Temp Pulse Resp BP Pulse Ox
97.5 F 64 20 97/53 98
04/12/25 10:49 04/12/25 10:49 04/12/25 10:49 04/12/25 10:49 04/12/25 11:03
Physical Exam
General: Comfortable and Conversant
HEENT: Anicteric and Moist mucous membranes
Respiratory: Clear and Non Labored Respirations
Cardiac: S1/S2 and Regular Rhythm
GI: Soft and Non Tender
Musculoskeletal: No Clubbing, No Cyanosis and Other (LUE AV Fistula with good thrill)
Skin: Warm and Dry
Neuro: Awake, Alert, Oriented and Nonfocal/grossly intact
Psych: Calm
Laboratory Results
-
04/12/25 10:56
04/12/25 10:56
Laboratory Results
Total Bilirubin 0.5 mg/dl (0.2-1.3) 04/12/25 10:56
AST 22 U/L (17-59) 04/12/25 10:56
ALT 22 U/L (0-50) 04/12/25 10:56
Alkaline Phosphatase 80 U/L (38-126) 04/12/25 10:56
Data Reviewed
-
Lab Data: Labs Reviewed by me
Old Records: Reviewed
Impression/Plan
-
Syncope, likely vasovagal
-Monitor telemetry
-Echo November 2024: Normal biventricular size and systolic function with EF 60-65%. Mild aortic regurgitation.
-Hold metoprolol as BP was on the low side upon arrival
ESRD on HD MWF
-Consult nephrology
-Continue sevelamer
-Continue Plavix for LUE AV Fistula Stent
Anemia of Chronic Disease
-Hgb stable
-Continue iron supplement
BPH
-Continue Flomax
Hyperlipidemia
-Continue simvastatin
DVT proph: SCDs
Code Status: Full Code
--- NOTE | 2025-04-12 18:02 | W.CON.NEPH ---
Consultation
-
Date/Time Consultation Requested: 04/12/25 1345
Date/Time Consultation Performed: 04/12/25 1645
Requesting Provider: Kar Almendarez
Performing Provider: Pratima Diehl
Reason for Consultation: ESRD
Medical History
-
Chief Complaint: syncope
History of Present Illness:
85-year-old man with ESRD on HD since august 2024 through right UE AVG,Dialysis Wednesday at [facility], chronic anemia , COPD, emphysema, pulmonary fibrosis, CHF, BPH and Flomax who was sent from [facility] for syncope. Patient
reports he was sitting on the toilet after having a bowel movement, and waiting for his aide to help into the shower. He reports began to feel lightheaded, mildly sweaty and then passed out leaning on the walker. Following the episode he began
very nauseous, and had two episodes of vomiting. Blood pressure noted to be on the low upon arrival to the emergency department at 90s, PCO2 50 cc of normal saline. He denies any chest pain, palpitations or shortness of breath. No issues with HD.
No fever, cough, diarrhea. No abd pain.
Past Medical History
ESRD MWF dialysis at [facility]
Hypertension
Anemia of CKD
BPH
COPD
Former smoker
CHF with recovered EF
DDD
Ambulatory dysfunction
Chronic pain
PAD
depression, vitamin B deficiency
LUE AVF (12/2023)
LUE Fistulogram x 2 (with stent x 1)
LUE AVG (06/19/24)
Back surgery x 3
Past Surgical History: Other (Discectomy, left AV fistula)
Social History
Relocated from [place] to [facility] in early 2023 with known CKD 5.
Tobacco: Former Smoker ( Quit smoking February 2024)
Alcohol: None
Drug: None
Personal: ( in 2022)
Living: Detention
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
Family History
father at 90. Mother at 88 Alzheimer's dementia. Brother at 84 with CKD 4. Sister with CKD.
Allergies / Home Medications
Allergy/AdvReac Type Severity Reaction Status Date / Time
No Known Allergies Allergy Verified 09/06/24 12:01
�Medication �Instructions �Recorded �Confirmed �Type
acetaminophen 325 mg tablet 650 mg PO Q6HPRN PRN mild pain 11/16/23 04/12/25 History
cyanocobalamin (vitamin B-12) 1,000 mcg PO DAILY@1200 Supplement 11/16/23 04/12/25 History
1,000 mcg tablet (Vitamin B-12)
magnesium hydroxide 400 mg/5 mL 30 ml PO DAILYPRN PRN constipation 11/16/23 04/12/25 History
oral suspension (Milk of Magnesia)
ascorbic acid (vitamin C) 500 mg 500 mg PO DAILY@1200 Supplement 12/17/23 04/12/25 History
tablet (Vitamin C)
ferrous gluconate 324 mg (38 mg 324 mg PO DAILY@1200 Supplement 05/17/24 04/12/25 History
iron) tablet
bisacodyl 10 mg rectal suppository 10 mg AR DAILYPRN PRN no results 09/06/24 04/12/25 History
for MOM
midodrine 5 mg tablet 5 mg PO DAILYPRN PRN bp<130. HD 11/13/24 04/12/25 History
days only
clopidogrel 75 mg tablet (Plavix) 75 mg PO QPM Blood clot 11/14/24 04/12/25 Rx
prevention/tx #0 tabs
metoprolol succinate 25 mg 12.5 mg (1/2 x 25 mg) PO 11/14/24 04/12/25 Rx
tablet,extended release 24 hr DAILY@1200 Blood pressure #0 tabs
simvastatin 20 mg tablet 20 mg PO QPM High cholesterol #0 11/14/24 04/12/25 Rx
tabs
tamsulosin 0.4 mg capsule (Flomax) 0.4 mg PO QPM Urinary issue #0 caps 11/14/24 04/12/25 Rx
carboxymethylcellulose sodium 0.5 1 drp BOTH EYES BID 04/12/25 04/12/25 History
% eye drops (Refresh Tears)
linaclotide 72 mcg capsule 72 mcg PO TUTHFR 04/12/25 04/12/25 History
(Linzess)
sevelamer carbonate 800 mg tablet 1,600 mg PO AC 04/12/25 04/12/25 History
Review of Systems
-
All other systems: Negative unless noted
Physical Exam
Vital Signs
Vital Signs
Temp Pulse Resp BP Pulse Ox
97.7 F 76 16 154/58 97
04/12/25 17:45 04/12/25 17:45 04/12/25 17:45 04/12/25 17:45 04/12/25 17:45
Lab Results
WBC 4.6 10^3/uL (4.8-10.8) L 04/12/25 10:56
RBC 3.09 10^6/uL (4.70-6.10) L 04/12/25 10:56
Hgb 10.3 g/dL (13.0-18.0) L 04/12/25 10:56
Hct 31.0 % (39.0-52.0) L 04/12/25 10:56
Plt Count 157 10^3/uL (130-400) 04/12/25 10:56
Sodium 130 mmol/L (135-145) L 04/12/25 10:56
Potassium 3.9 mmol/L (3.5-5.1) 04/12/25 10:56
Chloride 97 mmol/L (98-107) L 04/12/25 10:56
Carbon Dioxide 23 mmol/L (22-30) 10/30/25 10:56
BUN 50 mg/dl (9-20) H 04/12/25 10:56
Creatinine 3.0 mg/dL (0.7-1.3) H 04/12/25 10:56
eGFR 19.61 04/12/25 10:56
Glucose 98 mg/dl (70-99) 04/12/25 10:56
Calcium 8.9 mg/dl (8.4-10.2) 04/12/25 10:56
Albumin 3.9 g/dl (3.5-5.0) 04/12/25 10:56
Physical Exam
General: Awake, Alert, Oriented, AOx3, No Distress and Nontoxic
HEENT: EOMI, Anicteric, Facial Symmetry and No JVD
Respiratory: Clear, Normal Excursion and Nonlabored Respirations
Cardiac: S1/S2 and Regular Rate/Rhythm
Breast: Deferred by me
Abdomen: Soft, Nontender and Nondistended
Musculoskeletal: No Cyanosis and No Edema
Skin: No Rash
Neuro: Nonfocal/Grossly Intact
Psych: Mood/afflect pleasant, Insight/judgement good and Appropriate
Vascular Access: AVF
Data Reviewed
-
Labs: Labs Reviewed by me and Discussed with Patient
Assessment/Plan
-
Assessment:
syncope
ESRD-MWF through AVF at [facility] from 08/2024
Hyperlipidemia
PAD
Chronic anemia
History heart failure with preserved EF
Left upper arm AV graft
COPD/emphysema
BPH
Chronic back pain/DDD/ambulatory dysfunction
Plan:
A/w syncope likely vasovagal
BP improving now s/p 250cc bolus in ER
will arrange HD tomorrow as per schedule
metabolic parameters are acceptable
volume is not an issue for him
he only gets limited UF even at HD unit
resume home meds including phos binder
d/w pt
--- NOTE | 2025-04-12 18:40 | PTCARENOTE ---
Pt received from ED and pulled to bed from stretcher. Pt originally in 338-1 but due to HD needs pt moved to 335. Pt denies pain and has no needs at this time. Dinner ordered for pt. Call loyd is within reach.
[2025-04-12] MEDS: RENVELA 1600 MG PO (20:03)
[2025-04-12] MEDS: FLOMAX 0.4 MG PO (20:04)
[2025-04-12] MEDS: PLAVIX 75 MG PO (20:05)
[2025-04-12] MEDS: LIPITOR 10 MG PO (20:05)
[2025-04-13 03:44] VITALS: BP 138/55
[2025-04-13 06:00] VITALS: BMI 24.1
[2025-04-13 07:47] VITALS: BP 126/73
[2025-04-13 08:10] LABS: Troponin I 0.166 ng/ml
--- NOTE | 2025-04-13 08:10 | PTCARENOTE ---
Lab informed this RN of critical troponin value, result=0.166. Pt asymptomatic. made aware.
[2025-04-13] MEDS: RENVELA 1600 MG PO (08:14)
--- NOTE | 2025-04-13 09:32 | W.PN.HOSP.TC ---
Today's Communication/Plan
-
Discharge after dialysis if he feels well
Assessment / Plan
Assessment / Plan
Physical Exam
General: Comfortable and Conversant
HEENT: Anicteric and Moist mucous membranes
Respiratory: Clear and Non Labored Respirations
Cardiac: S1/S2 and Regular Rhythm
GI: Soft and Non Tender
Musculoskeletal: No Clubbing, No Cyanosis and Other (LUE AV Fistula with good thrill)
Skin: Warm and Dry
Neuro: Awake, Alert, Oriented and Nonfocal/grossly intact
Psych: Calm
A/p:
Syncope, likely vasovagal
Patient felt lightheaded then passed out with vomiting.
Orthostatic blood pressure improved after IV fluid
-Monitor telemetry: No arrhythmias
- CT head showed no acute abnormality, mild atrophy and chronic small vessel disease
-Echo November 2024: Normal biventricular size and systolic function with EF 60-65%. Mild aortic regurgitation.
- Can resume his usual medication with low-dose metoprolol and midodrine
- Patient was seen by physical therapy recommended home health service
ESRD on HD MWF
No issues with dialysis
-Continue sevelamer
-Continue Plavix for LUE AV Fistula Stent
# Chronic positive troponin. No clinical significance
Related to renal disease. EKG with no significant changes. No chest pain.
Anemia of Chronic Disease
-Hgb stable
-Continue iron supplement
BPH
-Continue Flomax
Hyperlipidemia
-Continue simvastatin
DVT proph: SCDs
Code Status: Full Code
Total discharge time spent to see the patient, examined the patient, review data and lab result, discuss discharge plan with patient, nursing staff around 65
Anticipated Discharge: Today
Subjective/Interval History
-
Date of Service: April 13, 2025
No chest pain
No sob
No abdominal pain. No lightheadedness or headache. Patient is requesting discharge after dialysis
Objective Data
-
Vital Signs:
Vital Signs
Temp Pulse Resp BP Pulse Ox
97.7 F 78 16 126/73 97
04/13/25 07:47 04/13/25 07:47 04/13/25 07:47 04/13/25 07:47 04/13/25 07:47
I&O
04/12/25 04/13/25 04/14/25
06:59 06:59 06:59
Intake Total 480 / 480
Output Total 800 / 800
Balance -320 / -320
[2025-04-13 10:57] VITALS: BP 103/53; BP 114/93; BP 93/49; PULSE 76; PULSE 85
[2025-04-13 10:58] VITALS: BP 103/53; BP 114/93; BP 93/49; PULSE 76; PULSE 85; PULSE 89
[2025-04-13 11:47] LABS: Hematocrit 32.5 % (39.0-52.0); Hemoglobin 10.6 g/dL (13.0-18.0); Mean Corp Hgb Conc. 32.6 g/dL (33.0-37.0); Mean Corpuscular Volume 98.8 fL (80.0-94.0); Platelet Count 149 10^3/uL (130-400); Red Cell Dist. Width 13.4 % (11.5-14.5)
[2025-04-13 12:06] VITALS: BP 155/54
[2025-04-13 12:09] LABS: Blood Urea Nitrogen 56 mg/dl (9-20); Calcium 9.1 mg/dl (8.4-10.2); Carbon Dioxide 27 mmol/L (22-30); Chloride 98 mmol/L (98-107); Estimated Creatinine Clearance 12 ml/min; Glucose 86 mg/dl (70-99); Potassium 4.3 mmol/L (3.5-5.1); Sodium 132 mmol/L (135-145); eGFR 14.77
[2025-04-13 12:18] LABS: Troponin I 0.164 ng/ml
[2025-04-13] MEDS: RENVELA PO (12:20)
[2025-04-13 12:42] LABS: Hepatitis B Surface Antigen Negative (Negative)
[2025-04-13] MEDS: HEPARIN 500 UNITS IV ×2 (12:43→13:25)
[2025-04-13] MEDS: RETACRIT 2000 UNITS IV (12:43)
--- NOTE | 2025-04-13 13:32 | CM ---
Addendum entered by Linda Mejia RN 04/13/25 13:48:
[facility]
report [phone]
fax [phone]
Original Note:
Alert awake oriented patient who lives at [facility] with HD 3x weekly. Pt receiving HD at this time. KAM explained to patient he said he could sign because needed arm straight for HD. DC ordered after HD . Renetta Sparks notified of admission and
discharge today. Pt requested ambulance Medical nec form completed.
He uses walker and wheelchair
[facility]
PCP Dr Kelly
PLAN Return to [facility] after HD
--- NOTE | 2025-04-13 14:18 | W.PN.NEPH.HD ---
Assessment
-
Pt seen on HD. no complaints. VSS, access ok
Progress Note - Hemodialysis
-
Date of Service: April 13, 2025
Duration: 30 minutes and 3 hours
Potassium Bath: 3
Calcium Bath: 2.5
Opti-Dialyzer: 160
Ultrafiltration: Other (1kg)
Blood Flow: 400
Dialysate Flow: 600
Heparin: 500x2
EPO: 2000 units
[2025-04-13 15:31] VITALS: BP 102/52
--- NOTE | 2025-04-14 09:42 | W.DCSUMMARY ---
Discharge Summary
Discharge Data
Date of Admission: 04/12/25
Date of Discharge: 04/13/25
-
Pending Results: No
Hospital Course
85 years old male admitted with syncopal episode. Patient reported he felt lightheadedness while sitting on the toilet and passed out. No history of head trauma. Scan of the head did not show acute findings. Patient was observed overnight on
cardiac telemetry. No cardiac dysrhythmia. He had positive troponin which was trending down. He has a chronic mildly elevated troponin related to kidney disease. Patient did not have chest pain. EKG did not show changes from a prior. Patient
was evaluated by physical therapy and recommended to go back to half-way. Patient underwent dialysis without complications. He was discharged in a stable condition.
Discharge Plan
-
Patient Disposition: Home with Home Care
Discharge Diagnosis/Procedures: Vasovagal episode
Diet: As tolerated
Referrals:
Arnaud Kelyl MD [Family Provider]
Prescriptions:
Continued
acetaminophen 325 mg Tablet
650 mg PO Q6HPRN PRN (Reason: mild pain)
cyanocobalamin (vitamin B-12) [Vitamin B-12] 1,000 mcg Tablet
1,000 mcg PO DAILY@1200
magnesium hydroxide [Milk of Magnesia] 400 mg/5 mL Suspension
30 ml PO DAILYPRN PRN (Reason: constipation)
ascorbic acid (vitamin C) [Vitamin C] 500 mg Tablet
500 mg PO DAILY@1200
ferrous gluconate 324 mg (38 mg iron) Tablet
324 mg PO DAILY@1200
bisacodyl 10 mg Suppository
10 mg [place] DAILYPRN PRN (Reason: no results for MOM)
midodrine 5 mg Tablet
5 mg PO DAILYPRN PRN (Reason: bp<130. HD days only)
clopidogrel [Plavix] 75 mg Tablet
75 mg PO QPM Qty: 0 0RF
tamsulosin [Flomax] 0.4 mg Capsule
0.4 mg PO QPM Qty: 0 0RF
simvastatin 20 mg Tablet
20 mg PO QPM Qty: 0 0RF
metoprolol succinate 25 mg Tablet Extended Release 24 Hr
12.5 mg PO DAILY@1200 Qty: 0 0RF
carboxymethylcellulose sodium [Refresh Tears] 0.5 % Drops
1 drp BOTH EYES BID
sevelamer carbonate 800 mg Tablet
1,600 mg PO AC
Linzess 72 mcg Capsule
72 mcg PO TUTHFR
Rx Instructions:
give upon returning from dialysis
Discharge Orders:
Discharge Patient (As Directed); Ordered 04/13/25
Ordered By: Mary Worthington
Discharge Date and Time
Discharge Date/Time: 04/13/25 17:37
Print Language: AUSTRIAN
== END 2025-04-13 17:37 ==
LOC: 3 WEST ACU 13:06
PROVIDERS: ADMITTING PHYSICIAN Hospitalist; ATTENDING PHYSICIAN Internal Medicine; CONSULT PHYSICIAN Internal Medicine; EMERGENCY PHYSICIAN Emergency Medicine; FAMILY PHYSICIAN Internal Medicine
DX: R55 Syncope and collapse (principal); R42 Dizziness and giddiness; R51.9 Headache, unspecified; R11.0 Nausea; I95.9 Hypotension, unspecified; E87.5 Hyperkalemia; I13.2 Hypertensive heart and chronic kidney disease with heart failure and with stage 5 chronic kidney disease, or end stage renal disease; N18.6 End stage renal disease; J43.9 Emphysema, unspecified; J84.10 Pulmonary fibrosis, unspecified; E78.5 Hyperlipidemia, unspecified; I50.32 Chronic diastolic (congestive) heart failure; I35.1 Nonrheumatic aortic (valve) insufficiency; I44.0 Atrioventricular block, first degree; E87.22 Chronic metabolic acidosis; I73.9 Peripheral vascular disease, unspecified; E53.9 Vitamin B deficiency, unspecified; F32.A Depression, unspecified; G89.29 Other chronic pain; G31.9 Degenerative disease of nervous system, unspecified; D63.1 Anemia in chronic kidney disease; M54.9 Dorsalgia, unspecified; R26.2 Difficulty in walking, not elsewhere classified; N40.0 Benign prostatic hyperplasia without lower urinary tract symptoms; Z99.2 Dependence on renal dialysis; Z87.891 Personal history of nicotine dependence; Z79.899 Other long term (current) drug therapy; Z79.02 Long term (current) use of antithrombotics/antiplatelets; Z84.19 Family history of other disorders of kidney and ureter; Z81.8 Family history of other mental and behavioral disorders
CPT/HCPCS: 70450; 80048; 80053; 84100; 84484; 85025; 85027; 86706; 87070; 87340; 93005; 96361; 96374; 97163; 97167; 99285; G0378; Q5106